=== PATIENT | male | born 1990 | race Caucasian/White ===

== ENCOUNTER 2017-02-16 13:42 | Emergency (ER) | payer OTHER ==
[~2017-02-16] VITALS: Ht 180.3 cm; Wt 60.3 kg
[~2017-02-16 13:42] MED LIST: ONDA4TAB8 PO; SUCR1TAB PO
[2017-02-16] MEDS ORDERED: ONDANSETRON 4 MG/2 ML VIAL IV ONE (14:00)
[2017-02-16] MEDS ORDERED: HYDROMORPHONE 1 MG/1 ML DISP.SYRIN IV ONE ×2 (14:00→15:00)
[2017-02-16] MEDS: IV NORMAL SALINE 1000 ML BAG IV ONE (14:22)
[2017-02-16 14:31] LABS: *BLOOD, URINE Trace-lysed (NEGATIVE); *COLOR,URINE DARK YELLOW (YELLOW); *KETONES,URINE NEGATIVE (NEGATIVE); *PROTEIN,URINE 2+ (NEGATIVE); *UROBILINOGEN,URINE 0.2 E.U./dl (NORMAL); LEUKOCYTE ESTERASE ,URINE NEGATIVE (NEGATIVE); NITRITE, URINE NEGATIVE (NEGATIVE); PH,URINE 5.5 (5.0-8.0); UGLUCOSE NEGATIVE (NEGATIVE)
[2017-02-16 14:32] LABS: BASOPHILS # (AUTO) 0.1 K/uL (0.0-8.0); BASOPHILS % (AUTO) 0.7 % (0.0-2.0); EOSINOPHILS % (AUTO) 0.3 % (0.0-7.0); HEMATOCRIT 51.1 % (40-50); HEMOGLOBIN 17.2 G/DL (14.0-18.0); LYMPHOCYTES # (AUTO) 0.6 K/UL (0.8-4.8); LYMPHOCYTES % (AUTO) 7.7 % (20.5-51.5); MEAN CORPUSCULAR HGB CONC 34 g/dL (32.0-37.0); MEAN CORPUSCULAR VOLUME 92.1 FL (82.0-92.0); MONOCYTES % (AUTO) 13.2 % (0.0-11.0); NEUTROPHILS % (AUTO) 78.1 % (38.5-71.5); PLATELET COUNT (AUTO) 271 K/UL (150-450); RED BLOOD CELL COUNT(AUTO) 5.55 MIL/UL (4.7-6.1); WHITE BLOOD COUNT (AUTO) 7.7 K/UL (4.0-11.2)
[2017-02-16] MEDS ORDERED: ONDANSETRON 4 MG/2 ML VIAL ONE (14:32)
[2017-02-16] MEDS ORDERED: HYDROMORPHONE 2 MG/1 ML DISP.SYRIN ONE (14:32)
[2017-02-16 14:37] LABS: POTASSIUM 3.4 mmol/L (3.5-5.1)
[2017-02-16 14:38] LABS: CREATININE 1.4 mg/dL (0.6-1.3)
[2017-02-16 14:43] LABS: BILIRUBIN,DIRECT 0.1 mg/dL (0.0-0.2); BILIRUBIN,TOTAL 0.9 mg/dL (0.2-1.0); TOTAL PROTEIN, SERUM 8.8 g/dL (6.4-8.2)
[2017-02-16 14:54] LABS: *BILIRUBIN,URIN TRACE (NEGATIVE); *CLARITY,URINE SLIGHTLY HAZY (CLEAR)
[2017-02-16 14:56] LABS: MUCUS,URINE MANY /LPF (0-FEW); URINE AMORPHOUS URATE FEW /HPF
[2017-02-16] MEDS ORDERED: ONDANSETRON IV *ER 4 MG/2 ML VIAL IV ONE (15:00)
[2017-02-16] MEDS ORDERED: HYDROMORPHONE 1 MG/1 ML DISP.SYRIN ONE (15:13)
[2017-02-16 15:27] VITALS: BP 122/65
--- NOTE | 2017-02-16 15:36 | NUR ---
IV removed. Catheter intact and site benign. Pressure and 4x4 gauze applied to site. No bleeding noted.
--- NOTE | 2017-02-16 15:37 | NUR ---
Patient discharged to home in stable conditon. Written and verbal after care instructions given. Patient verbalizes understanding of instructions.
[2017-02-17] MEDS ORDERED: METO-295 PO (14:34)
== END 2017-02-16 15:36 | disposition home or self-care (01) ==
LOC: ER 13:42
DX: M54.9 Dorsalgia, unspecified (principal); R11.10 Vomiting, unspecified; F31.9 Bipolar disorder, unspecified; R10.9 Unspecified abdominal pain; F41.9 Anxiety disorder, unspecified; F10.20 Alcohol dependence, uncomplicated; F17.200 Nicotine dependence, unspecified, uncomplicated
CPT/HCPCS: 36415; 83690; 85025; A4663; J1170; J2405; J7030

== ENCOUNTER 2017-02-17 14:15 | Emergency (ER) | payer OTHER ==
[~2017-02-17] VITALS: Ht 180.3 cm; Wt 59.4 kg
[2017-02-17] MEDS ORDERED: METO-295 PO (14:34)
--- NOTE | 2017-02-17 14:40 | NUR ---
dr tripp at the bedside for eval and exam.
[2017-02-17] MEDS ORDERED: HYDROMORPHONE 1 MG/1 ML DISP.SYRIN IM ONE (15:00)
[2017-02-17] MEDS ORDERED: PROMETHAZINE HCL 25 MG/1 ML VIAL IM ONE (15:00)
[2017-02-17 15:06] VITALS: BP 109/77
[2017-02-17] MEDS ORDERED: PROMETHAZINE HCL 25 MG/1 ML VIAL ONE (15:10)
[2017-02-17] MEDS ORDERED: HYDROMORPHONE 2 MG/1 ML DISP.SYRIN ONE (15:10)
== END 2017-02-17 15:10 | disposition home or self-care (01) ==
LOC: ER 14:15
DX: M54.9 Dorsalgia, unspecified (principal); F41.9 Anxiety disorder, unspecified; F31.9 Bipolar disorder, unspecified; F10.20 Alcohol dependence, uncomplicated; F17.200 Nicotine dependence, unspecified, uncomplicated
CPT/HCPCS: 96372 ×2; 99284; A4663; J1170; J2550

== ENCOUNTER 2017-09-30 07:18 | Emergency (ER) | payer OTHER ==
[~2017-09-30] VITALS: Ht 172.7 cm; Wt 56.7 kg
[~2017-09-30 07:18] MED LIST changes: +METO-295 PO
[2017-09-30] MEDS ORDERED: MORPHINE SULFATE 2 MG/1 ML DISP.SYRIN IV ONE (07:45)
[2017-09-30] MEDS ORDERED: IV NORMAL SALINE 1000 ML BAG IV ONE ×2 (07:45→11:00)
[2017-09-30] MEDS ORDERED: MORPHINE SULFATE 4 MG/1 ML DISP.SYRIN ONE ×2 (08:22→09:51)
[2017-09-30] MEDS ORDERED: ONDANSETRON 4 MG/2 ML VIAL ONE ×2 (08:22→11:06)
[2017-09-30] MEDS: ONDANSETRON 4 MG/2 ML VIAL IV ONE ×2 (09:00→09:13)
--- NOTE | 2017-09-30 09:05 | NUR ---
PT AMBULATED TO ROOM W/ STEADY GAIT. PT WAS SEEN BY . PT WAS GIVEN COMFORT MEDS. LABS HAVE BEEN DRAWN. PT IS HEAED TO CT. PT WILL BE REASSESSED UPON RETURN FROM CT.
[2017-09-30 09:14] LABS: BASOPHILS # (AUTO) 0.1 K/uL (0.0-8.0); BASOPHILS % (AUTO) 0.8 % (0.0-2.0); EOSINOPHILS % (AUTO) 0.1 % (0.0-7.0); HEMATOCRIT 43.3 % (36.7-47.1); HEMOGLOBIN 15.2 g/dL (12.5-16.3); LYMPHOCYTES # (AUTO) 1.7 K/uL (20.0-40.0); LYMPHOCYTES % (AUTO) 20.2 % (20.5-51.5); MEAN CORPUSCULAR HEMOGLOBIN 32.3 uug (23.8-33.4); MEAN CORPUSCULAR HGB CONC 35 g/dL (32.5-36.3); MONOCYTES # (AUTO) 0.8 K/uL (2.0-10.0); MONOCYTES % (AUTO) 9.2 % (0.0-11.0); NEUTROPHILS # (AUTO) 5.8 K/uL (1.8-8.9); NEUTROPHILS % (AUTO) 69.7 % (38.5-71.5); PLATELET COUNT (AUTO) 335 K/uL (152-348); RED BLOOD CELL COUNT(AUTO) 4.71 MIL/uL (4.06-5.63); WHITE BLOOD COUNT (AUTO) 8.3 K/uL (3.6-10.2)
[2017-09-30 09:25] LABS: CREATININE 1.4 mg/dL (0.6-1.3); POTASSIUM 2.9 mmol/L (3.5-5.1)
[2017-09-30 09:30] LABS: BILIRUBIN,DIRECT 0.2 mg/dL (0.0-0.2); TOTAL PROTEIN, SERUM 7.9 g/dL (6.4-8.2)
[2017-09-30] MEDS ORDERED: MORPHINE SULFATE 4 MG/1 ML DISP.SYRIN IV ONE (09:30)
[2017-09-30] MEDS ORDERED: POTASSIUM CHLORIDE 20 MEQ TAB.PRT.SR PO ONE (09:45)
[2017-09-30] MEDS ORDERED: POTASSIUM CHLORIDE 20 MEQ TAB.PRT.SR ONE (10:22)
[2017-09-30] MEDS ORDERED: IV 0.9% SODIUM CHLORID+ 20 KCL 1,000 ML IV ONE (10:22)
[2017-09-30] MEDS ORDERED: ONDANSETRON IV *ER 4 MG/2 ML VIAL IV ONE (10:30)
--- NOTE | 2017-09-30 10:34 | NUR ---
MD NOTIFIED OF PT'S CONTINUED PAIN. AWAITING FURTHER ORDERS. PT IN BED. VS STABLE.
[2017-09-30] MEDS ORDERED: KETOROLAC TROMETHAMINE 30 MG INJ IVP ONE (11:00)
[2017-09-30] MEDS ORDERED: LORAZEPAM 2 MG/1 ML VIAL IV ONE (11:00)
[2017-09-30] MEDS ORDERED: KETOROLAC TROMETHAMINE 30 MG INJ ONE (11:35)
[2017-09-30] MEDS ORDERED: LORAZEPAM 2 MG/1 ML VIAL ONE (11:35)
[2017-09-30] MEDS: POTASSIUM CHLORIDE 50 ML IV SCH ×2 (11:50→12:35)
--- NOTE | 2017-09-30 13:55 | NUR ---
Per MD, patient stable for discharged to home. Pt ambulated unassisted with steady gait. Pt was not seen vomiting and denied nausea. Written and verbal after care instructions given. Patient verbalizes understanding of instructions.
[2017-09-30 14:06] VITALS: BP 122/76
== END 2017-09-30 13:55 | disposition home or self-care (01) ==
LOC: ER 07:18
DX: K86.1 Other chronic pancreatitis (principal); K85.90 Acute pancreatitis without necrosis or infection, unspecified; E86.0 Dehydration; E87.6 Hypokalemia; F12.90 Cannabis use, unspecified, uncomplicated; F17.200 Nicotine dependence, unspecified, uncomplicated
CPT/HCPCS: 36415; 74176; 80048; 80076; 83690; 85025; 96361; 96365; 96366; 96375; 96376; 99285; A4663; J1885; J2060; J2270 ×2; J2405 ×2; J3480; J7030 ×2

== ENCOUNTER 2017-10-01 10:45 | Emergency (ER) | payer OTHER ==
[~2017-10-01] VITALS: Ht 172.7 cm; Wt 59.0 kg
[2017-10-01] MEDS ORDERED: HALOPERIDOL LACTATE 5 MG/1 ML VIAL IM ONE (11:15)
[2017-10-01] MEDS ORDERED: IV NORMAL SALINE 1000 ML BAG IV ONE (11:15)
[2017-10-01] MEDS ORDERED: HALOPERIDOL LACTATE 5 MG/1 ML VIAL IV ONE (11:15)
[2017-10-01 11:33] LABS: *BLOOD, URINE 2+ (NEGATIVE); *CLARITY,URINE CLEAR (CLEAR); *COLOR,URINE YELLOW (YELLOW); *KETONES,URINE 2+ (NEGATIVE); *PROTEIN,URINE 1+ (NEGATIVE); *UROBILINOGEN,URINE 0.2 E.U./dl (NORMAL); LEUKOCYTE ESTERASE ,URINE NEGATIVE (NEGATIVE); NITRITE, URINE NEGATIVE (NEGATIVE); UGLUCOSE NEGATIVE (NEGATIVE)
[2017-10-01 11:36] LABS: *BILIRUBIN,URIN 1+ (NEGATIVE)
[2017-10-01 11:40] LABS: BACTERIA,URINE FEW /HPF (NONE SEEN); RBC,URINE 0-3 /HPF (0-3); SQUAMOUS EPITHELIAL CELL,UR FEW /HPF (NONE SEEN); WBC,URINE 0-3 /HPF (0-3)
[2017-10-01] MEDS ORDERED: HALOPERIDOL LACTATE 5 MG/1 ML VIAL ONE (11:43)
[2017-10-01 11:47] LABS: *AMPHETAMINE, URINE NEGATIVE (NEGATIVE); *BARBITURATE, URINE NEGATIVE (NEGATIVE); *CANNABINOID, URINE POSITIVE (NEGATIVE); *COCCAINE, URINE NEGATIVE (NEGATIVE); *OPIATE, URINE POSITIVE (NEGATIVE); *PHENCYCLIDINE SCREEN,URINE NEGATIVE (NEGATIVE)
--- NOTE | 2017-10-01 12:29 | NUR ---
lab wwas not able to obtain blood, i attempted 5 times to start a saline lock and was not able, dr andrade was notified. pt then was administered haldol im. pt then refused to wait and eloped. was notified, pt ambulated w/o diff/took all belongings.
[2017-10-01 12:52] LABS: BILIRUBIN,DIRECT 0.3 mg/dL (0.0-0.2); BILIRUBIN,TOTAL 1.3 mg/dL (0.2-1.0); CREATININE 1.3 mg/dL (0.6-1.3); POTASSIUM 3.2 mmol/L (3.5-5.1); TOTAL PROTEIN, SERUM 7.9 g/dL (6.4-8.2)
== END 2017-10-01 12:28 | disposition left against medical advice (07) ==
LOC: ER 10:47
DX: F12.10 Cannabis abuse, uncomplicated (principal); G43.A0 Cyclical vomiting, in migraine, not intractable; G89.29 Other chronic pain; K21.9 Gastro-esophageal reflux disease without esophagitis; F17.200 Nicotine dependence, unspecified, uncomplicated
CPT/HCPCS: 36415; 80307; 83690; A4663; J1630; J7030

== ENCOUNTER 2017-10-02 11:18 | Inpatient (IN) | payer OTHER ==
--- NOTE | 2017-10-01 22:30 | NUR ---
PATIENT ALERT AWAKE, PATIENT INSIST TO CALL MD FOR IV PAIN MEDICATIONS, BUT EXPLAINED TO PATIENT THAT MD WAS NOTIFIED ALREADY AND NO NEW ORDER. OFFER TO HAVE ZOFRAN 4MG IV FIRST SO HE CAN TAKE THE PO MEDS, IT TOOK LOTS OF ENCOURAGEMENT TO FOLLOW THE SUGGESTIONS. PATIENT REFUSED TO REFUSED TO FOLLOW NPO ORDERS, WANTS TO EAT AND DRINK, REQUEST MULTIPLE TIME OF JUICES, SANDWICHES.
[~2017-10-02] VITALS: Ht 180.3 cm; Wt 52.2 kg
[2017-10-02] MEDS ORDERED: IV NORMAL SALINE 1000 ML BAG IV ONE (12:00)
[2017-10-02] MEDS ORDERED: KETAMINE HCL 500 MG/10 ML INJ IV ONE ×2 (12:00→14:30)
[2017-10-02] MEDS ORDERED: ONDANSETRON 4 MG/2 ML VIAL IV ONE (12:00)
[2017-10-02 12:54] LABS: BASOPHILS # (AUTO) 0.1 K/uL (0.0-8.0); BASOPHILS % (AUTO) 0.7 % (0.0-2.0); EOSINOPHILS % (AUTO) 0.1 % (0.0-7.0); HEMATOCRIT 43.7 % (36.7-47.1); HEMOGLOBIN 15.4 g/dL (12.5-16.3); LYMPHOCYTES # (AUTO) 1.9 K/uL (20.0-40.0); LYMPHOCYTES % (AUTO) 22.1 % (20.5-51.5); MEAN CORPUSCULAR HEMOGLOBIN 32.3 uug (23.8-33.4); MEAN CORPUSCULAR HGB CONC 35 g/dL (32.5-36.3); MEAN CORPUSCULAR VOLUME 91.8 fL (73.0-96.2); MONOCYTES # (AUTO) 0.6 K/uL (2.0-10.0); MONOCYTES % (AUTO) 7.7 % (0.0-11.0); NEUTROPHILS # (AUTO) 5.8 K/uL (1.8-8.9); NEUTROPHILS % (AUTO) 69.4 % (38.5-71.5); PLATELET COUNT (AUTO) 301 K/uL (152-348); RED BLOOD CELL COUNT(AUTO) 4.76 MIL/uL (4.06-5.63); WHITE BLOOD COUNT (AUTO) 8.4 K/uL (3.6-10.2)
[2017-10-02 13:11] LABS: BILIRUBIN,DIRECT 0.3 mg/dL (0.0-0.2); BILIRUBIN,TOTAL 1.4 mg/dL (0.2-1.0); CREATININE 1.2 mg/dL (0.6-1.3); POTASSIUM 3.2 mmol/L (3.5-5.1); TOTAL PROTEIN, SERUM 7.8 g/dL (6.4-8.2)
--- NOTE | 2017-10-02 13:24 | NUR ---
PT IS IN ROOM 32A. DR AGUILAR EVALUATED THE PT.
[2017-10-02] MEDS ORDERED: ONDANSETRON 4 MG/2 ML VIAL ONE ×2 (13:27→22:02)
[2017-10-02] MEDS ORDERED: KETAMINE HCL 500 MG/10 ML INJ ONE ×2 (13:28→15:03)
[2017-10-02] MEDS ORDERED: METOCLOPRAMIDE HCL 10 MG/2 ML VIAL IV ONE (14:30)
[2017-10-02] MEDS ORDERED: METOCLOPRAMIDE HCL 10 MG/2 ML VIAL ONE ×2 (15:02→22:45)
[2017-10-02] MEDS ORDERED: LORAZEPAM 2 MG/1 ML VIAL IV ONE (15:30)
[2017-10-02] MEDS ORDERED: LORAZEPAM 2 MG/1 ML VIAL ONE (16:02)
--- NOTE | 2017-10-02 18:41 | NUR ---
REPORT WAS GIVEN TO JESSICA M/Alfie ROA. PT WAS TRANSFERED TO ROOM #221.
--- NOTE | 2017-10-02 18:48 | NUR ---
FULL TELEPHONE SBAR REPORT RECEIVED ER JESSICA HIGGINS. RECEIVED PATIENT FROM ER VIA WHEELCHAIR, PATIENT ALERT, ORIENTED X4, VERBALIZED UNDERSTANDING PLAN OF CARE. NO C/O OF PAIN, NO ACUTE DISTRESS NOTED UPON ADMISSION
[2017-10-02] MEDS ORDERED: POTASSIUM CHLORIDE 20 MEQ TAB.PRT.SR PO ONE (19:15)
[2017-10-02] MEDS ORDERED: MAGNESIUM HYDROXIDE 30 ML LIQUID UDC PO PRN (19:15)
[2017-10-02] MEDS ORDERED: HYDROCODONE/APAP 5-325MG TABLET PO PRN (19:15)
[2017-10-02] MEDS ORDERED: ACETAMINOPHEN 325 MG TABLET PO PRN (19:15)
[2017-10-02] MEDS ORDERED: METOCLOPRAMIDE HCL 10 MG/2 ML VIAL IV PRN (19:15)
[2017-10-02] MEDS ORDERED: ENOXAPARIN SODIUM 40 MG/0.4 ML DISP.SYRIN SQ SCH (19:15)
[2017-10-02] MEDS ORDERED: ONDANSETRON 4 MG/2 ML VIAL IV PRN (19:15)
[2017-10-02] MEDS ORDERED: Z GUARD REMEDY PASTE 57 GM TUBE TOP PRN (19:15)
[2017-10-02] MEDS ORDERED: ZOLPIDEM 5 MG TABLET PO PRN (19:15)
[2017-10-02] MEDS ORDERED: IV D5/ 0.9% NACL 1,000 ML IV PRN (19:15)
--- NOTE | 2017-10-02 20:45 | NUR ---
CALLED DR. LINK FOR PAIN MEDS, BUT SAID TO CALL DAMIEN VERDUZCO PUBLIC HEALTH ADVISOR FOR ORDER. NOTIFY DAMIEN VERDUZCO PUBLIC HEALTH ADVISOR FOR PAIN IV, PUBLIC HEALTH ADVISOR HAS NO NEW ORDER AT THIS TIME. PATIENT REFUSED PO PAIN MEDS, COMPLAIN OF VOMITING, OFFERED ZOFRAN FOR NAUSEA SO HE CAN TAKE THE PO PAIN MEDS, BUT REFUSED, PATIENT START SCREAMING, CALLED SECURITY
--- NOTE | 2017-10-02 20:50 | NUR ---
PATIENT GIVEN PO PAIN MEDS TOLERATE WELL, NO EVIDENCE OF VOMITING, PATIENT CONTINUE TO CLAIM THAT HE VOMITING BUT NO EMESIS NOTED ON VOMIT BAG.
[2017-10-02 20:51] VITALS: BP 107/71
[2017-10-02] MEDS ORDERED: HYDROCODONE/APAP 5-325MG TABLET ONE (22:00)
[2017-10-02] MEDS ORDERED: ENOXAPARIN SODIUM 40 MG/0.4 ML DISP.SYRIN SQ ONE (22:01)
[2017-10-02] MEDS ORDERED: POTASSIUM CHLORIDE 20 MEQ TAB.PRT.SR ONE (22:03)
--- NOTE | 2017-10-03 01:17 | NUR ---
PATIENT REQUESTING COFFEE, AND SNACK, AND TOLERATE JUICES AND CRACKERS PROVIDED. PATIENT HAS NO EVIDENCE THAT HE'S VOMITING. CONT TO REFUSED NPO ORDERS.
[2017-10-03] MEDS ORDERED: ZOLPIDEM 5 MG TABLET ONE (01:29)
--- NOTE | 2017-10-03 02:30 | NUR ---
PATIENT WENT AMA, TOOK ALL BELONGINGS. EXPLAINED THE RISK AND BENEFIT.
--- NOTE | 2017-10-03 03:28 | NUR ---
NOTIFY DR. ELENA THAT PATIENT WENT AMA.
== END 2017-10-03 02:31 | disposition left against medical advice (07) | DRG 54 ==
LOC: ER 11:18 → TELE 18:16 → MED 18:27
DX: G43.A0 Cyclical vomiting, in migraine, not intractable (principal); E87.6 Hypokalemia; F31.9 Bipolar disorder, unspecified; F41.9 Anxiety disorder, unspecified; T40.7X5A Adverse effect of cannabis (derivatives), initial encounter; Y92.89 Other specified places as the place of occurrence of the external cause; Z79.899 Other long term (current) drug therapy; F17.210 Nicotine dependence, cigarettes, uncomplicated; Z76.5 Malingerer [conscious simulation]
CPT/HCPCS: 36415; 70030-TC; 83690; 85025; A4663; J1650; J2060; J2405; J2765; J3490; J7030

== ENCOUNTER 2017-10-10 13:49 | Emergency (ER) | payer OTHER ==
[~2017-10-10] VITALS: Ht 180.3 cm; Wt 53.1 kg
[2017-10-10] MEDS ORDERED: IV NORMAL SALINE 1000 ML BAG IV ONE (14:15)
[2017-10-10] MEDS ORDERED: ONDANSETRON 4 MG/2 ML VIAL IV ONE (14:15)
[2017-10-10] MEDS ORDERED: HYDROMORPHONE 1 MG/1 ML DISP.SYRIN IV ONE ×3 (14:15→16:00)
[2017-10-10] MEDS ORDERED: ONDANSETRON 4 MG/2 ML VIAL ONE ×3 (14:22→16:19)
[2017-10-10] MEDS ORDERED: HYDROMORPHONE 1 MG/1 ML DISP.SYRIN ONE ×2 (14:22→15:20)
[2017-10-10 14:27] LABS: CREATININE 1.7 mg/dL (0.6-1.3); POTASSIUM 3.2 mmol/L (3.5-5.1)
[2017-10-10 14:28] LABS: BASOPHILS # (AUTO) 0.1 K/uL (0.0-8.0); EOSINOPHILS # (AUTO) 0.1 K/uL (0.0-0.7); EOSINOPHILS % (AUTO) 0.6 % (0.0-7.0); HEMOGLOBIN 16.6 g/dL (12.5-16.3); LYMPHOCYTES # (AUTO) 2.9 K/uL (20.0-40.0); LYMPHOCYTES % (AUTO) 29.4 % (20.5-51.5); MEAN CORPUSCULAR HEMOGLOBIN 31.9 uug (23.8-33.4); MEAN CORPUSCULAR HGB CONC 35 g/dL (32.5-36.3); MEAN CORPUSCULAR VOLUME 90.4 fL (73.0-96.2); MONOCYTES # (AUTO) 0.8 K/uL (2.0-10.0); MONOCYTES % (AUTO) 8.3 % (0.0-11.0); NEUTROPHILS # (AUTO) 5.9 K/uL (1.8-8.9); NEUTROPHILS % (AUTO) 60.7 % (38.5-71.5); PLATELET COUNT (AUTO) 289 K/uL (152-348); WHITE BLOOD COUNT (AUTO) 9.7 K/uL (3.6-10.2)
[2017-10-10 14:33] LABS: BILIRUBIN,DIRECT 0.4 mg/dL (0.0-0.2); BILIRUBIN,TOTAL 1.5 mg/dL (0.2-1.0); TOTAL PROTEIN, SERUM 8.6 g/dL (6.4-8.2)
[2017-10-10] MEDS ORDERED: ONDANSETRON IV *ER 4 MG/2 ML VIAL IV ONE ×2 (14:45→16:00)
[2017-10-10] MEDS ORDERED: IV LACTATED RINGERS SOLUTION 1,000 ML IV ONE (15:08)
--- NOTE | 2017-10-10 15:32 | NUR ---
Patient ambulated to bathroom with slow steady gait to void but patient forgot to collect his urine, pending transfer to 2nd floor med-surgical floor
--- NOTE | 2017-10-10 15:46 | NUR ---
Patient is resting comfortably on gurney while using his personal electronic device, not in acute distress. He is calm & breathing easily. Patient's girlfriend/spouse? is at bedside. Patient is now admitted to medical surgical floor room 227, under care of Dr. Rojo. Patient was informed by Dr Campbell that he will not be given IV Dilaudid on the floor. Patient wanted IV lactated ringer's solution infused before going to 2nd floor.
--- NOTE | 2017-10-10 16:18 | NUR ---
Patient refused to be admitted. Patient discharged to home in stable conditon by MD. Written and verbal after care instructions given to patient and patient's spouse/girlfriend. Patient and spouse verbalized understanding of instructions. Patient left ER with slow steady gait.
[2017-10-10] MEDS ORDERED: HYDROMORPHONE 2 MG/1 ML DISP.SYRIN ONE (16:19)
== END 2017-10-10 16:20 | disposition home or self-care (01) ==
LOC: ER 13:49
DX: G43.A0 Cyclical vomiting, in migraine, not intractable (principal); K85.90 Acute pancreatitis without necrosis or infection, unspecified; F17.200 Nicotine dependence, unspecified, uncomplicated
CPT/HCPCS: 80048; 80076; 81001; 83690; 85025; 87400; 96361; 96374; 96375; 96376; 99285; A4663; J1170 ×3; J2405 ×3; J7030 ×2; J7120

== ENCOUNTER 2017-10-12 23:55 | Inpatient (IN) | payer OTHER ==
[~2017-10-12] VITALS: Ht 180.3 cm; Wt 52.2 kg
[2017-10-13] MEDS ORDERED: ONDANSETRON 4 MG/2 ML VIAL IV ONE (00:15)
[2017-10-13] MEDS ORDERED: IV NORMAL SALINE 1000 ML BAG IV ONE (00:15)
[2017-10-13] MEDS ORDERED: HYDROMORPHONE 1 MG/1 ML DISP.SYRIN IV ONE ×3 (00:15→03:00)
[2017-10-13] MEDS ORDERED: ONDANSETRON 4 MG/2 ML VIAL ONE ×3 (01:12→03:18)
[2017-10-13] MEDS ORDERED: HYDROMORPHONE 2 MG/1 ML DISP.SYRIN ONE ×2 (01:12→01:42)
[2017-10-13 01:19] LABS: BASOPHILS # (AUTO) 0.1 K/uL (0.0-8.0); BASOPHILS % (AUTO) 1.2 % (0.0-2.0); EOSINOPHILS # (AUTO) 0.1 K/uL (0.0-0.7); EOSINOPHILS % (AUTO) 1.3 % (0.0-7.0); HEMATOCRIT 42.8 % (36.7-47.1); HEMOGLOBIN 15.2 g/dL (12.5-16.3); LYMPHOCYTES # (AUTO) 2.3 K/uL (20.0-40.0); LYMPHOCYTES % (AUTO) 32.3 % (20.5-51.5); MEAN CORPUSCULAR HEMOGLOBIN 32.4 uug (23.8-33.4); MEAN CORPUSCULAR HGB CONC 36 g/dL (32.5-36.3); MONOCYTES # (AUTO) 0.5 K/uL (2.0-10.0); MONOCYTES % (AUTO) 6.7 % (0.0-11.0); NEUTROPHILS # (AUTO) 4.2 K/uL (1.8-8.9); NEUTROPHILS % (AUTO) 58.5 % (38.5-71.5); PLATELET COUNT (AUTO) 220 K/uL (152-348); WHITE BLOOD COUNT (AUTO) 7.2 K/uL (3.6-10.2)
[2017-10-13] MEDS ORDERED: ONDANSETRON IV *ER 4 MG/2 ML VIAL IV ONE ×2 (01:30→03:00)
[2017-10-13 01:36] LABS: BILIRUBIN,DIRECT 0.3 mg/dL (0.0-0.2); BILIRUBIN,TOTAL 1.2 mg/dL (0.2-1.0); CREATININE 1.2 mg/dL (0.6-1.3); POTASSIUM 3.5 mmol/L (3.5-5.1); TOTAL PROTEIN, SERUM 8.4 g/dL (6.4-8.2)
[2017-10-13] MEDS ORDERED: HYDROMORPHONE 4 MG/1 ML DISP.SYRIN ONE (03:18)
[2017-10-13 04:00] VITALS: BP 102/60
[2017-10-13] MEDS ORDERED: LORAZEPAM 2 MG/1 ML VIAL IV PRN (04:45)
[2017-10-13] MEDS ORDERED: ACETAMINOPHEN 325 MG TABLET PO PRN (04:45)
[2017-10-13] MEDS: IV NS 1000 ML 1,000 ML IV PRN ×2 (06:03→16:45)
[2017-10-13 07:03] LABS: BILIRUBIN,TOTAL 0.9 mg/dL (0.2-1.0); CREATININE 1.1 mg/dL (0.6-1.3); MAGNESIUM 1.9 mg/dL (1.8-2.4); PHOSPHOROUS 3.9 mg/dL (2.5-4.9); POTASSIUM 3.4 mmol/L (3.5-5.1); TOTAL PROTEIN, SERUM 7.2 g/dL (6.4-8.2)
[2017-10-13 07:31] LABS: BASOPHILS # (AUTO) 0.1 K/uL (0.0-8.0); BASOPHILS % (AUTO) 1.2 % (0.0-2.0); EOSINOPHILS # (AUTO) 0.1 K/uL (0.0-0.7); EOSINOPHILS % (AUTO) 1.1 % (0.0-7.0); HEMATOCRIT 38.4 % (36.7-47.1); HEMOGLOBIN 13.7 g/dL (12.5-16.3); LYMPHOCYTES # (AUTO) 2.9 K/uL (20.0-40.0); LYMPHOCYTES % (AUTO) 43.7 % (20.5-51.5); MEAN CORPUSCULAR HEMOGLOBIN 32.7 uug (23.8-33.4); MEAN CORPUSCULAR HGB CONC 36 g/dL (32.5-36.3); MEAN CORPUSCULAR VOLUME 91.3 fL (73.0-96.2); MONOCYTES # (AUTO) 0.5 K/uL (2.0-10.0); MONOCYTES % (AUTO) 6.9 % (0.0-11.0); NEUTROPHILS # (AUTO) 3.1 K/uL (1.8-8.9); NEUTROPHILS % (AUTO) 47.1 % (38.5-71.5); PLATELET COUNT (AUTO) 194 K/uL (152-348); WHITE BLOOD COUNT (AUTO) 6.6 K/uL (3.6-10.2)
[2017-10-13] MEDS: ONDANSETRON 4 MG/2 ML VIAL IV PRN ×2 (08:30→17:05)
[2017-10-13 10:24] LABS: *BLOOD, URINE Trace-intact (NEGATIVE); *CLARITY,URINE CLEAR (CLEAR); *COLOR,URINE YELLOW (YELLOW); *KETONES,URINE TRACE (NEGATIVE); *PROTEIN,URINE 2+ (NEGATIVE); LEUKOCYTE ESTERASE ,URINE NEGATIVE (NEGATIVE); NITRITE, URINE NEGATIVE (NEGATIVE); UGLUCOSE NEGATIVE (NEGATIVE)
[2017-10-13 10:48] LABS: *BILIRUBIN,URIN 1+ (NEGATIVE)
[2017-10-13 10:57] VITALS: BP 121/82
[2017-10-13 10:57] LABS: BACTERIA,URINE FEW /HPF (NONE SEEN); MUCUS,URINE MANY /LPF (0-FEW); SQUAMOUS EPITHELIAL CELL,UR FEW /HPF (NONE SEEN)
[2017-10-13 11:33] LABS: *AMPHETAMINE, URINE NEGATIVE (NEGATIVE); *BARBITURATE, URINE NEGATIVE (NEGATIVE); *CANNABINOID, URINE POSITIVE (NEGATIVE); *COCCAINE, URINE NEGATIVE (NEGATIVE); *OPIATE, URINE POSITIVE (NEGATIVE); *PHENCYCLIDINE SCREEN,URINE NEGATIVE (NEGATIVE)
[2017-10-13] MEDS ORDERED: NICOTINE 14 MG/24HR PATCH TD SCH (12:00)
[2017-10-13] MEDS ORDERED: POTASSIUM CHLORIDE 20 MEQ TAB.PRT.SR PO ONE (14:45)
[2017-10-13 15:11] VITALS: BP 108/65
[2017-10-13] MEDS ORDERED: HYDROCODONE/APAP 5-325MG TABLET PO PRN (15:30)
[2017-10-13] MEDS ORDERED: IV 1/2NS 1000 ML 1,000 ML IV PRN (17:00)
[2017-10-13 19:00] VITALS: BP 105/67
[2017-10-13] MEDS ORDERED: AMITRIPTYLINE HCL 50 MG TABLET PO SCH (21:00)
== END 2017-10-14 09:32 | disposition left against medical advice (07) | DRG 254 ==
LOC: ER 10-13 00:01 → MED 10-13 03:15 → MEDSURG1 10-14 02:20
PROVIDERS: ADMIT Nurse Practitioner Acute Care; ATTEND Nurse Practitioner Acute Care
DX: K31.89 Other diseases of stomach and duodenum (principal); N17.0 Acute kidney failure with tubular necrosis; F12.988 Cannabis use, unspecified with other cannabis-induced disorder; E87.6 Hypokalemia; K31.9 Disease of stomach and duodenum, unspecified; F13.90 Sedative, hypnotic, or anxiolytic use, unspecified, uncomplicated; F11.90 Opioid use, unspecified, uncomplicated; F31.9 Bipolar disorder, unspecified; M48.00 Spinal stenosis, site unspecified; F41.9 Anxiety disorder, unspecified; R11.2 Nausea with vomiting, unspecified
CPT/HCPCS: 36415; 70030-TC; 71045; 80307; 83690; 83735; 84100; 85025; 87086; A4663; J1170; J2405; J3490; J7030

== ENCOUNTER 2017-10-18 12:06 | Emergency (ER) | payer OTHER ==
[~2017-10-18] VITALS: Ht 180.3 cm; Wt 51.4 kg
[2017-10-18] MEDS ORDERED: IV NORMAL SALINE 1000 ML BAG IV ONE ×2 (12:45→14:45)
[2017-10-18] MEDS ORDERED: KETAMINE HCL 500 MG/10 ML INJ IV ONE (12:45)
[2017-10-18] MEDS ORDERED: METOCLOPRAMIDE HCL 10 MG/2 ML VIAL IV ONE (12:45)
--- NOTE | 2017-10-18 13:09 | NUR ---
PT IN BED W/ VISITOR AT BEDSIDE. PT BACK FROM RADIOLOGY. CURRENTLY WAITING FOR MD TO ASSIST W/ IV MED ADMINISTRATION BY ESTABLISHING AN IV LINE IN NECK.
[2017-10-18 13:46] LABS: BILIRUBIN,DIRECT 0.4 mg/dL (0.0-0.2); BILIRUBIN,TOTAL 1.6 mg/dL (0.2-1.0); CREATININE 1.6 mg/dL (0.6-1.3); TOTAL PROTEIN, SERUM 8.8 g/dL (6.4-8.2)
[2017-10-18 13:51] LABS: POTASSIUM 2.7 mmol/L (3.5-5.1)
[2017-10-18] MEDS ORDERED: METOCLOPRAMIDE HCL 10 MG/2 ML VIAL ONE (13:54)
[2017-10-18] MEDS ORDERED: KETAMINE HCL 500 MG/10 ML INJ ONE (13:55)
[2017-10-18 13:59] LABS: BASOPHILS # (AUTO) 0.1 K/uL (0.0-8.0); BASOPHILS % (AUTO) 0.8 % (0.0-2.0); EOSINOPHILS % (AUTO) 0.1 % (0.0-7.0); HEMATOCRIT 46.6 % (36.7-47.1); HEMOGLOBIN 16.6 g/dL (12.5-16.3); LYMPHOCYTES # (AUTO) 2.2 K/uL (20.0-40.0); LYMPHOCYTES % (AUTO) 27.9 % (20.5-51.5); MEAN CORPUSCULAR HEMOGLOBIN 31.8 uug (23.8-33.4); MEAN CORPUSCULAR HGB CONC 36 g/dL (32.5-36.3); MEAN CORPUSCULAR VOLUME 89.2 fL (73.0-96.2); MONOCYTES # (AUTO) 0.7 K/uL (2.0-10.0); MONOCYTES % (AUTO) 8.5 % (0.0-11.0); NEUTROPHILS # (AUTO) 4.9 K/uL (1.8-8.9); NEUTROPHILS % (AUTO) 62.7 % (38.5-71.5); PLATELET COUNT (AUTO) 240 K/uL (152-348); RED BLOOD CELL COUNT(AUTO) 5.23 MIL/uL (4.06-5.63); WHITE BLOOD COUNT (AUTO) 7.9 K/uL (3.6-10.2)
--- NOTE | 2017-10-18 14:00 | NUR ---
PICC NOT NEEDED. MD AGUILAR ABLE TO START IV ON LT EJ
[2017-10-18] MEDS ORDERED: LORAZEPAM 2 MG/1 ML VIAL IV ONE ×2 (14:15→17:00)
[2017-10-18] MEDS ORDERED: LORAZEPAM 2 MG/1 ML VIAL ONE ×2 (14:21→17:20)
[2017-10-18] MEDS ORDERED: POTASSIUM CHLORIDE 20 MEQ TAB.PRT.SR PO ONE (14:45)
[2017-10-18] MEDS ORDERED: POTASSIUM CHLORIDE 20 MEQ TAB.PRT.SR ONE (15:00)
--- NOTE | 2017-10-18 17:30 | NUR ---
Patient discharged to home in stable conditon. Written and verbal after care instructions given. Patient verbalizes understanding of instructions.
[2017-10-18 18:03] VITALS: BP 122/86
== END 2017-10-18 17:30 | disposition home or self-care (01) ==
LOC: ER 12:09
DX: K31.89 Other diseases of stomach and duodenum (principal); R11.10 Vomiting, unspecified; F11.10 Opioid abuse, uncomplicated; F12.10 Cannabis abuse, uncomplicated; K85.90 Acute pancreatitis without necrosis or infection, unspecified; N17.9 Acute kidney failure, unspecified; F17.200 Nicotine dependence, unspecified, uncomplicated
CPT/HCPCS: 36415; 70030-TC; 71045; 83690; 85025; 85730; 93005; A4663; J2060; J2765; J3490; J7030

== ENCOUNTER 2018-01-05 11:56 | Emergency (ER) | payer OTHER ==
[~2018-01-05] VITALS: Ht 180.3 cm; Wt 70.3 kg
[2018-01-05] MEDS ORDERED: MORPHINE SULFATE 2 MG/1 ML DISP.SYRIN IV ONE (12:15)
[2018-01-05] MEDS ORDERED: IV NORMAL SALINE 1000 ML BAG IV ONE ×3 (12:15→14:30)
[2018-01-05] MEDS ORDERED: ONDANSETRON 4 MG/2 ML VIAL IV ONE (12:15)
[2018-01-05] MEDS ORDERED: MORPHINE SULFATE 4 MG/1 ML DISP.SYRIN ONE ×4 (12:16→14:21)
[2018-01-05] MEDS ORDERED: ONDANSETRON 4 MG/2 ML VIAL ONE ×4 (12:17→14:21)
[2018-01-05 12:34] LABS: BASOPHILS # (AUTO) 0.1 K/uL (0.0-8.0); BASOPHILS % (AUTO) 0.6 % (0.0-2.0); HEMATOCRIT 45.2 % (36.7-47.1); HEMOGLOBIN 15.9 g/dL (12.5-16.3); LYMPHOCYTES # (AUTO) 1.4 K/uL (20.0-40.0); LYMPHOCYTES % (AUTO) 11.9 % (20.5-51.5); MEAN CORPUSCULAR HEMOGLOBIN 32.9 uug (23.8-33.4); MEAN CORPUSCULAR HGB CONC 35 g/dL (32.5-36.3); MEAN CORPUSCULAR VOLUME 93.8 fL (73.0-96.2); MONOCYTES # (AUTO) 0.9 K/uL (2.0-10.0); MONOCYTES % (AUTO) 7.8 % (0.0-11.0); NEUTROPHILS # (AUTO) 9.2 K/uL (1.8-8.9); NEUTROPHILS % (AUTO) 79.7 % (38.5-71.5); PLATELET COUNT (AUTO) 278 K/uL (152-348); RED BLOOD CELL COUNT(AUTO) 4.82 MIL/uL (4.06-5.63); WHITE BLOOD COUNT (AUTO) 11.6 K/uL (3.6-10.2)
[2018-01-05] MEDS ORDERED: MORPHINE SULFATE 4 MG/1 ML DISP.SYRIN IV ONE ×3 (13:00→14:30)
[2018-01-05] MEDS ORDERED: ONDANSETRON IV *ER 4 MG/2 ML VIAL IV ONE ×3 (13:00→14:30)
[2018-01-05 13:13] LABS: BILIRUBIN,DIRECT 0.2 mg/dL (0.0-0.2); BILIRUBIN,TOTAL 1.3 mg/dL (0.2-1.0); CREATININE 1.3 mg/dL (0.6-1.3); POTASSIUM 3.8 mmol/L (3.5-5.1); TOTAL PROTEIN, SERUM 9.2 g/dL (6.4-8.2)
[2018-01-05] MEDS ORDERED: METOCLOPRAMIDE HCL 10 MG/2 ML VIAL ONE (14:00)
[2018-01-05] MEDS ORDERED: METOCLOPRAMIDE HCL 10 MG/2 ML VIAL IV ONE (14:00)
[2018-01-05 14:31] VITALS: BP 121/81
--- NOTE | 2018-01-05 14:31 | NUR ---
Patient discharged to home in stable conditon. Written and verbal after care instructions given. Patient verbalizes understanding of instructions.pt walks in steady gait. pt wants to go home and rest. pt ordered uber to get home.
== END 2018-01-05 14:32 | disposition home or self-care (01) ==
LOC: ER 11:56
DX: G43.A0 Cyclical vomiting, in migraine, not intractable (principal); G89.29 Other chronic pain; F17.210 Nicotine dependence, cigarettes, uncomplicated; F12.10 Cannabis abuse, uncomplicated; Z79.899 Other long term (current) drug therapy
CPT/HCPCS: 36415; 83690; 85025; A4663; J2270; J2405; J2765; J7030

== ENCOUNTER 2018-01-06 10:00 | Emergency (ER) | payer OTHER ==
[~2018-01-06] VITALS: Ht 180.3 cm; Wt 68.0 kg
[2018-01-06] MEDS ORDERED: ONDANSETRON 4 MG/2 ML VIAL IV ONE (10:30)
[2018-01-06] MEDS ORDERED: IV NORMAL SALINE 1000 ML BAG IV ONE (10:30)
[2018-01-06] MEDS ORDERED: METOCLOPRAMIDE HCL 10 MG/2 ML VIAL IV ONE (10:30)
[2018-01-06] MEDS ORDERED: MORPHINE SULFATE 2 MG/1 ML DISP.SYRIN IV ONE (10:30)
[2018-01-06] MEDS ORDERED: MORPHINE SULFATE 4 MG/1 ML DISP.SYRIN ONE ×3 (10:59→12:28)
[2018-01-06] MEDS ORDERED: METOCLOPRAMIDE HCL 10 MG/2 ML VIAL ONE (10:59)
[2018-01-06] MEDS ORDERED: ONDANSETRON 4 MG/2 ML VIAL ONE ×3 (10:59→12:28)
--- NOTE | 2018-01-06 11:02 | NUR ---
PT IS IN ROOM #2A. DR CHIANG EVALUATED THE PT.
[2018-01-06 11:06] LABS: CREATININE 1.2 mg/dL (0.6-1.3); POTASSIUM 3.7 mmol/L (3.5-5.1)
[2018-01-06 11:12] LABS: BILIRUBIN,DIRECT 0.3 mg/dL (0.0-0.2); BILIRUBIN,TOTAL 1.5 mg/dL (0.2-1.0); TOTAL PROTEIN, SERUM 9.5 g/dL (6.4-8.2)
[2018-01-06] MEDS ORDERED: MORPHINE SULFATE 4 MG/1 ML DISP.SYRIN IV ONE ×2 (11:30→12:30)
[2018-01-06] MEDS ORDERED: ONDANSETRON IV *ER 4 MG/2 ML VIAL IV ONE ×2 (11:30→12:30)
[2018-01-06 12:01] LABS: BASOPHILS % (AUTO) 0.2 % (0.0-2.0); HEMATOCRIT 44.7 % (36.7-47.1); HEMOGLOBIN 15.4 g/dL (12.5-16.3); LYMPHOCYTES % (AUTO) 7.6 % (20.5-51.5); MEAN CORPUSCULAR HEMOGLOBIN 32.3 uug (23.8-33.4); MEAN CORPUSCULAR HGB CONC 35 g/dL (32.5-36.3); MEAN CORPUSCULAR VOLUME 93.7 fL (73.0-96.2); MONOCYTES % (AUTO) 7.2 % (0.0-11.0); NEUTROPHILS # (AUTO) 11.7 K/uL (1.8-8.9); PLATELET COUNT (AUTO) 268 K/uL (152-348); RED BLOOD CELL COUNT(AUTO) 4.77 MIL/uL (4.06-5.63); WHITE BLOOD COUNT (AUTO) 13.7 K/uL (3.6-10.2)
--- NOTE | 2018-01-06 12:37 | NUR ---
PT WAS D/C TO HOME. D/C INSRUCTIONS GIVEN TO THE PT. PT DENIES PAIN. NO S/S OF ACUTE DISTRESS AT THIS TIME. GAIT IS STABLE. NO NAUSEA / VOMITING.
[2018-01-06 12:43] VITALS: BP 128/83
== END 2018-01-06 12:44 | disposition home or self-care (01) ==
LOC: ER 10:00
DX: G43.A0 Cyclical vomiting, in migraine, not intractable (principal); G89.29 Other chronic pain; F12.10 Cannabis abuse, uncomplicated; F17.210 Nicotine dependence, cigarettes, uncomplicated; Z79.899 Other long term (current) drug therapy
CPT/HCPCS: 36415; 83690; 85025; A4663; J2270; J2405; J2765; J7030

== ENCOUNTER 2018-01-07 08:20 | Emergency (ER) | payer OTHER ==
[~2018-01-07] VITALS: Ht 172.7 cm; Wt 62.6 kg
--- NOTE | 2018-01-07 09:13 | NUR ---
Patient discharged to home in stable conditon. Written and verbal after care instructions given. Patient verbalizes understanding of instructions.
== END 2018-01-07 09:14 | disposition home or self-care (01) ==
LOC: ER 08:20
DX: F12.188 Cannabis abuse with other cannabis-induced disorder (principal); R11.10 Vomiting, unspecified; G89.29 Other chronic pain; F17.210 Nicotine dependence, cigarettes, uncomplicated; Z79.899 Other long term (current) drug therapy
CPT/HCPCS: A4663

== ENCOUNTER 2018-01-09 08:18 | Emergency (ER) | payer OTHER ==
[~2018-01-09] VITALS: Ht 172.7 cm; Wt 61.7 kg
--- NOTE | 2018-01-09 08:45 | NUR ---
OB stool collected by Dr Kraft, sent to LAB.
[2018-01-09] MEDS ORDERED: PANTOPRAZOLE SODIUM 40 MG TABLET.DR PO ONE ×3 (08:55→09:00)
[2018-01-09 09:07] LABS: *OCCULT BLOOD STOOL NEGATIVE (NEGATIVE)
[2018-01-09] MEDS ORDERED: diphenhydrAMINE 25 MG CAP PO ONE ×2 (09:25→09:30)
[2018-01-09] MEDS ORDERED: METOCLOPRAMIDE HCL 10 MG/2 ML VIAL ONE (09:25)
[2018-01-09] MEDS ORDERED: ONDANSETRON ODT 4 MG TAB.RAPDIS ONE (09:25)
[2018-01-09 09:26] LABS: CREATININE 1.2 mg/dL (0.6-1.3); POTASSIUM 2.9 mmol/L (3.5-5.1)
[2018-01-09] MEDS ORDERED: ONDANSETRON ODT 4 MG TAB.RAPDIS SL ONE (09:30)
[2018-01-09] MEDS ORDERED: METOCLOPRAMIDE HCL 10 MG/2 ML VIAL IM ONE (09:30)
[2018-01-09 09:32] LABS: BILIRUBIN,TOTAL 2.5 mg/dL (0.2-1.0); TOTAL PROTEIN, SERUM 8.9 g/dL (6.4-8.2)
[2018-01-09] MEDS ORDERED: MAG HYDROX/AL HYDROX/SIMETH 30 ML LIQUID UDC ONE (09:32)
[2018-01-09 09:34] LABS: BASOPHILS # (AUTO) 0.1 K/uL (0.0-8.0); BASOPHILS % (AUTO) 0.8 % (0.0-2.0); EOSINOPHILS % (AUTO) 0.1 % (0.0-7.0); HEMATOCRIT 46.1 % (36.7-47.1); HEMOGLOBIN 16.2 g/dL (12.5-16.3); LYMPHOCYTES # (AUTO) 1.5 K/uL (20.0-40.0); LYMPHOCYTES % (AUTO) 17.4 % (20.5-51.5); MEAN CORPUSCULAR HEMOGLOBIN 32.7 uug (23.8-33.4); MEAN CORPUSCULAR HGB CONC 35 g/dL (32.5-36.3); MEAN CORPUSCULAR VOLUME 93.1 fL (73.0-96.2); MONOCYTES # (AUTO) 0.8 K/uL (2.0-10.0); MONOCYTES % (AUTO) 9.1 % (0.0-11.0); NEUTROPHILS # (AUTO) 6.1 K/uL (1.8-8.9); NEUTROPHILS % (AUTO) 72.6 % (38.5-71.5); PLATELET COUNT (AUTO) 251 K/uL (152-348); RED BLOOD CELL COUNT(AUTO) 4.95 MIL/uL (4.06-5.63); WHITE BLOOD COUNT (AUTO) 8.5 K/uL (3.6-10.2)
[2018-01-09] MEDS ORDERED: LIDOCAINE VISCUS 2% 15 ML UDC ONE (09:35)
--- NOTE | 2018-01-09 09:44 | NUR ---
Patient is resting comfortably in bed,NAD noted at this time.
[2018-01-09] MEDS ORDERED: MAG HYDROX/AL HYDROX/SIMETH 30 ML LIQUID UDC PO ONE (09:45)
[2018-01-09] MEDS ORDERED: LIDOCAINE VISCUS 2% 15 ML UDC MM ONE (09:45)
--- NOTE | 2018-01-09 09:53 | NUR ---
Pt able to tolorate PO intake.
[2018-01-09] MEDS ORDERED: POTASSIUM CHLORIDE 20 MEQ TAB.PRT.SR PO ONE (10:00)
[2018-01-09] MEDS ORDERED: POTASSIUM CHLORIDE 20 MEQ TAB.PRT.SR ONE (10:01)
[2018-01-09 10:02] VITALS: BP 120/88
--- NOTE | 2018-01-09 10:03 | NUR ---
Patient discharged to home in stable conditon. Written and verbal after care instructions given. Patient verbalizes understanding of instructions. Pt left ER w/ steady gait.
== END 2018-01-09 10:04 | disposition home or self-care (01) ==
LOC: ER 08:18
DX: G89.29 Other chronic pain (principal); R10.84 Generalized abdominal pain; E87.6 Hypokalemia; F12.188 Cannabis abuse with other cannabis-induced disorder; F17.210 Nicotine dependence, cigarettes, uncomplicated; Z79.899 Other long term (current) drug therapy
CPT/HCPCS: 36415; 85025; A4663; J2765; Q0162; Q0163

== ENCOUNTER 2018-01-15 08:19 | Inpatient (IN) | payer OTHER ==
[~2018-01-15] VITALS: Ht 180.3 cm; Wt 57.6 kg
[~2018-01-15 08:19] MED LIST changes: -METO-295 PO
[2018-01-15] MEDS ORDERED: MORPHINE SULFATE 2 MG/1 ML DISP.SYRIN IV ONE (08:45)
[2018-01-15] MEDS ORDERED: IV NORMAL SALINE 1000 ML BAG IV ONE ×2 (08:45→10:15)
[2018-01-15] MEDS ORDERED: ONDANSETRON 4 MG/2 ML VIAL IV ONE (08:45)
[2018-01-15 09:28] LABS: BASOPHILS % (AUTO) 0.1 % (0.0-2.0); LYMPHOCYTES # (AUTO) 0.8 K/uL (20.0-40.0); LYMPHOCYTES % (AUTO) 6.3 % (20.5-51.5); MEAN CORPUSCULAR HEMOGLOBIN 32.5 uug (23.8-33.4); MEAN CORPUSCULAR HGB CONC 36 g/dL (32.5-36.3); MEAN CORPUSCULAR VOLUME 90.6 fL (73.0-96.2); MONOCYTES # (AUTO) 1.2 K/uL (2.0-10.0); MONOCYTES % (AUTO) 9.7 % (0.0-11.0); NEUTROPHILS # (AUTO) 10.8 K/uL (1.8-8.9); NEUTROPHILS % (AUTO) 83.9 % (38.5-71.5); PLATELET COUNT (AUTO) 295 K/uL (152-348); RED BLOOD CELL COUNT(AUTO) 5.43 MIL/uL (4.06-5.63)
[2018-01-15] MEDS ORDERED: MORPHINE SULFATE 4 MG/1 ML DISP.SYRIN ONE ×2 (09:30→10:16)
[2018-01-15] MEDS ORDERED: ONDANSETRON 4 MG/2 ML VIAL ONE ×2 (09:30→10:16)
[2018-01-15 09:36] LABS: BILIRUBIN,DIRECT 0.3 mg/dL (0.0-0.2); BILIRUBIN,TOTAL 1.8 mg/dL (0.2-1.0); CREATININE 3.1 mg/dL (0.6-1.3); TOTAL PROTEIN, SERUM 9.9 g/dL (6.4-8.2)
[2018-01-15 09:43] LABS: POTASSIUM 3.7 mmol/L (3.5-5.1)
[2018-01-15 09:55] LABS: WHITE BLOOD COUNT (AUTO) 12.9 K/uL (3.6-10.2)
[2018-01-15 09:56] LABS: HEMATOCRIT 49.2 % (36.7-47.1); HEMOGLOBIN 17.7 g/dL (12.5-16.3)
[2018-01-15] MEDS ORDERED: MORPHINE SULFATE 4 MG/1 ML DISP.SYRIN IV ONE (10:15)
[2018-01-15] MEDS ORDERED: ONDANSETRON IV *ER 4 MG/2 ML VIAL IV ONE (10:15)
[2018-01-15] MEDS ORDERED: MAGNESIUM HYDROXIDE 30 ML LIQUID UDC PO PRN (10:30)
[2018-01-15] MEDS ORDERED: ACETAMINOPHEN 325 MG TABLET PO PRN (10:30)
[2018-01-15] MEDS ORDERED: Z GUARD REMEDY PASTE 57 GM TUBE TOP PRN (10:30)
[2018-01-15 11:24] VITALS: BP 122/77
[2018-01-15] MEDS: IV NS 1000 ML 1,000 ML IV SCH ×2 (12:28→18:40)
[2018-01-15] MEDS: HYDROCODONE/APAP 5-325MG TABLET PO PRN ×3 (12:47→22:56)
[2018-01-15 13:05] LABS: *BILIRUBIN,URIN NEGATIVE (NEGATIVE); *BLOOD, URINE 1+ (NEGATIVE); *CLARITY,URINE CLEAR (CLEAR); *COLOR,URINE LIGHT YELLOW (YELLOW); *KETONES,URINE NEGATIVE (NEGATIVE); *PROTEIN,URINE TRACE (NEGATIVE); *UROBILINOGEN,URINE 0.2 E.U./dl (NORMAL); LEUKOCYTE ESTERASE ,URINE NEGATIVE (NEGATIVE); NITRITE, URINE NEGATIVE (NEGATIVE); UGLUCOSE TRACE (NEGATIVE)
[2018-01-15 13:27] LABS: BACTERIA,URINE NONE SEEN /HPF (NONE SEEN); SQUAMOUS EPITHELIAL CELL,UR FEW /HPF (NONE SEEN)
[2018-01-15 13:30] LABS: CYSTINE CRYSTALS,URINE FEW /HPF (NONE SEEN); MUCUS,URINE FEW /LPF (0-FEW)
[2018-01-15 13:33] LABS: *URINE TOTAL PROTEIN RANDOM 17.9 mg/dL (<150/24HR)
[2018-01-15 15:14] VITALS: BP 118/73
[2018-01-15 16:58] LABS: CREATININE 2.1 mg/dL (0.6-1.3)
[2018-01-15 17:13] LABS: POTASSIUM 2.8 mmol/L (3.5-5.1)
[2018-01-15] MEDS ORDERED: POTASSIUM CHLORIDE 20 MEQ TAB.PRT.SR PO ONE ×2 (17:30→21:00)
[2018-01-15] MEDS: ONDANSETRON 4 MG/2 ML VIAL IV PRN (18:38)
[2018-01-15 20:01] VITALS: BP 115/71
[2018-01-16] MEDS: IV NS 1000 ML 1,000 ML IV SCH ×3 (02:14→17:44)
[2018-01-16] MEDS: ONDANSETRON 4 MG/2 ML VIAL IV PRN ×3 (04:20→16:52)
[2018-01-16] MEDS: HYDROCODONE/APAP 5-325MG TABLET PO PRN ×5 (04:24→21:39)
[2018-01-16 04:49] VITALS: BP 108/65
[2018-01-16 06:12] LABS: BILIRUBIN,TOTAL 1.6 mg/dL (0.2-1.0); MAGNESIUM 2.6 mg/dL (1.8-2.4)
[2018-01-16 08:09] LABS: BASOPHILS % (AUTO) 0.5 % (0.0-2.0); EOSINOPHILS % (AUTO) 0.1 % (0.0-7.0); LYMPHOCYTES # (AUTO) 1.8 K/uL (20.0-40.0); LYMPHOCYTES % (AUTO) 22.8 % (20.5-51.5); MEAN CORPUSCULAR HEMOGLOBIN 32.9 uug (23.8-33.4); MEAN CORPUSCULAR HGB CONC 35 g/dL (32.5-36.3); MEAN CORPUSCULAR VOLUME 93.5 fL (73.0-96.2); MONOCYTES # (AUTO) 1.3 K/uL (2.0-10.0); NEUTROPHILS # (AUTO) 4.6 K/uL (1.8-8.9); NEUTROPHILS % (AUTO) 59.6 % (38.5-71.5); RED BLOOD CELL COUNT(AUTO) 4.27 MIL/uL (4.06-5.63)
[2018-01-16 08:19] LABS: POTASSIUM 3.7 mmol/L (3.5-5.1)
[2018-01-16 08:20] LABS: CREATININE 1.8 mg/dL (0.6-1.3); PHOSPHOROUS 1.8 mg/dL (2.5-4.9)
[2018-01-16 08:21] LABS: TOTAL PROTEIN, SERUM 7.1 g/dL (6.4-8.2)
[2018-01-16 08:26] LABS: WHITE BLOOD COUNT (AUTO) 7.7 K/uL (3.6-10.2)
[2018-01-16 08:27] LABS: HEMOGLOBIN 14.1 g/dL (12.5-16.3); PLATELET COUNT (AUTO) 200 K/uL (152-348)
[2018-01-16] MEDS: POTASSIUM PHOSPHATE MM 7.5 MMOL in IV DEXTROSE 5% 100 ML IV SCH ×2 (11:13→14:20)
[2018-01-16 11:14] VITALS: BP 111/73
[2018-01-16 11:38] LABS: EOSINOPHILS % (MANUAL) 1 % (0-8); LYMPHOCYTES % (MANUAL) 31 % (20-40); NEUTROPHILS % (MANUAL) 51 % (42-75)
[2018-01-16 11:39] LABS: MONOCYTES % (MANUAL) 17 % (2-10)
[2018-01-16 15:07] VITALS: BP 104/69
[2018-01-16 20:20] VITALS: BP 105/61
[2018-01-17] MEDS: IV NS 1000 ML 1,000 ML IV SCH ×2 (01:13→09:36)
[2018-01-17] MEDS: HYDROCODONE/APAP 5-325MG TABLET PO PRN ×2 (01:58→08:38)
[2018-01-17] MEDS: ONDANSETRON 4 MG/2 ML VIAL IV PRN ×2 (02:00→08:37)
[2018-01-17 05:53] LABS: BASOPHILS # (AUTO) 0.1 K/uL (0.0-8.0); BASOPHILS % (AUTO) 0.6 % (0.0-2.0); EOSINOPHILS # (AUTO) 0.1 K/uL (0.0-0.7); EOSINOPHILS % (AUTO) 0.5 % (0.0-7.0); HEMATOCRIT 36.3 % (36.7-47.1); HEMOGLOBIN 12.7 g/dL (12.5-16.3); LYMPHOCYTES # (AUTO) 2.6 K/uL (20.0-40.0); LYMPHOCYTES % (AUTO) 25.9 % (20.5-51.5); MEAN CORPUSCULAR HEMOGLOBIN 32.9 uug (23.8-33.4); MEAN CORPUSCULAR HGB CONC 35 g/dL (32.5-36.3); MEAN CORPUSCULAR VOLUME 94.1 fL (73.0-96.2); MONOCYTES # (AUTO) 0.9 K/uL (2.0-10.0); MONOCYTES % (AUTO) 8.8 % (0.0-11.0); NEUTROPHILS # (AUTO) 6.3 K/uL (1.8-8.9); NEUTROPHILS % (AUTO) 64.2 % (38.5-71.5); PLATELET COUNT (AUTO) 175 K/uL (152-348); RED BLOOD CELL COUNT(AUTO) 3.86 MIL/uL (4.06-5.63); WHITE BLOOD COUNT (AUTO) 9.9 K/uL (3.6-10.2)
[2018-01-17 06:01] LABS: BILIRUBIN,TOTAL 0.8 mg/dL (0.2-1.0); CREATININE 1.1 mg/dL (0.6-1.3); MAGNESIUM 1.9 mg/dL (1.8-2.4); PHOSPHOROUS 1.5 mg/dL (2.5-4.9); POTASSIUM 3.6 mmol/L (3.5-5.1); TOTAL PROTEIN, SERUM 6.2 g/dL (6.4-8.2)
[2018-01-17 06:47] VITALS: BP 110/61
[2018-01-17] MEDS ORDERED: MORPHINE SULFATE 4 MG/1 ML DISP.SYRIN IV ONE (10:15)
[2018-01-17] MEDS ORDERED: NEUTRA PHOS PACKET PO ONE (10:45)
[2018-01-17] MEDS ORDERED: POTASSIUM PHOSPHATE MM 5 MMOL in IV DEXTROSE 5% 100 ML IV SCH (11:30)
== END 2018-01-17 11:18 | disposition home or self-care (01) | DRG 469 ==
LOC: ER 08:20 → TELE 10:37 → MED 11:13
PROVIDERS: ADMIT Internal Medicine; ATTEND Internal Medicine
DX: N17.9 Acute kidney failure, unspecified (principal); E87.3 Alkalosis; E87.1 Hypo-osmolality and hyponatremia; E83.39 Other disorders of phosphorus metabolism; E86.0 Dehydration; R11.10 Vomiting, unspecified; K31.89 Other diseases of stomach and duodenum; F17.210 Nicotine dependence, cigarettes, uncomplicated; E87.6 Hypokalemia; F41.9 Anxiety disorder, unspecified; F31.9 Bipolar disorder, unspecified; M89.9 Disorder of bone, unspecified; K31.9 Disease of stomach and duodenum, unspecified; T40.7X Poisoning by, adverse effect of and underdosing of cannabis (derivatives); F12.90 Cannabis use, unspecified, uncomplicated
CPT/HCPCS: 36415; 83690; 83735; 84100; 84156; 84300; 85025; A4663; J2270; J2405; J3490; J7030; J7060

== ENCOUNTER 2018-02-06 07:35 | Emergency (ER) | payer OTHER ==
[~2018-02-06] VITALS: Ht 180.3 cm; Wt 57.2 kg
[2018-02-06] MEDS ORDERED: METOCLOPRAMIDE HCL 10 MG/2 ML VIAL IV ONE (09:00)
[2018-02-06] MEDS ORDERED: IV NORMAL SALINE 1000 ML BAG IV ONE (09:00)
[2018-02-06] MEDS ORDERED: ONDANSETRON 4 MG/2 ML VIAL IV ONE (09:00)
[2018-02-06] MEDS ORDERED: diphenhydrAMINE 50 MG/1 ML VIAL IV ONE (09:00)
[2018-02-06] MEDS ORDERED: PANTOPRAZOLE SODIUM 40 MG VIAL IV ONE (09:00)
[2018-02-06] MEDS ORDERED: diphenhydrAMINE 50 MG/1 ML VIAL ONE (09:15)
[2018-02-06] MEDS ORDERED: PANTOPRAZOLE SODIUM 40 MG VIAL ONE (09:15)
[2018-02-06] MEDS ORDERED: METOCLOPRAMIDE HCL 10 MG/2 ML VIAL ONE (09:15)
[2018-02-06] MEDS ORDERED: ONDANSETRON 4 MG/2 ML VIAL ONE (09:15)
[2018-02-06 09:25] LABS: BASOPHILS # (AUTO) 0.1 K/uL (0.0-8.0); BASOPHILS % (AUTO) 1.2 % (0.0-2.0); EOSINOPHILS % (AUTO) 0.4 % (0.0-7.0); HEMATOCRIT 43.3 % (36.7-47.1); HEMOGLOBIN 15.4 g/dL (12.5-16.3); LYMPHOCYTES # (AUTO) 2.3 K/uL (20.0-40.0); LYMPHOCYTES % (AUTO) 34.7 % (20.5-51.5); MEAN CORPUSCULAR HEMOGLOBIN 32.5 uug (23.8-33.4); MEAN CORPUSCULAR HGB CONC 36 g/dL (32.5-36.3); MEAN CORPUSCULAR VOLUME 91.5 fL (73.0-96.2); MONOCYTES # (AUTO) 0.5 K/uL (2.0-10.0); MONOCYTES % (AUTO) 7.9 % (0.0-11.0); NEUTROPHILS # (AUTO) 3.6 K/uL (1.8-8.9); NEUTROPHILS % (AUTO) 55.8 % (38.5-71.5); PLATELET COUNT (AUTO) 218 K/uL (152-348); RED BLOOD CELL COUNT(AUTO) 4.73 MIL/uL (4.06-5.63); WHITE BLOOD COUNT (AUTO) 6.5 K/uL (3.6-10.2)
[2018-02-06 09:31] LABS: CREATININE 1.3 mg/dL (0.6-1.3); POTASSIUM 3.6 mmol/L (3.5-5.1)
--- NOTE | 2018-02-06 09:31 | NUR ---
pt says wants to leave. he does not want to stay any longer. er md at bedside talking to pt.
--- NOTE | 2018-02-06 09:37 | NUR ---
Patient discharged to home in stable conditon. Written and verbal after care instructions given. Patient verbalizes understanding of instructions.pt walks in steady gait.
[2018-02-06 09:38] VITALS: BP 108/91
[2018-02-06 09:43] LABS: BILIRUBIN,DIRECT 0.2 mg/dL (0.0-0.2); BILIRUBIN,TOTAL 1.2 mg/dL (0.2-1.0); TOTAL PROTEIN, SERUM 8.5 g/dL (6.4-8.2)
== END 2018-02-06 09:38 | disposition home or self-care (01) ==
LOC: ER 07:35
DX: G43.A0 Cyclical vomiting, in migraine, not intractable (principal); G89.29 Other chronic pain; F17.200 Nicotine dependence, unspecified, uncomplicated
CPT/HCPCS: 36415; 80048; 80076; 83690; 85025; 96374; 96375; 99284; A4663; C9113; J1200; J2405; J2765; J7030

== ENCOUNTER 2018-05-12 18:03 | Emergency (ER) | payer OTHER ==
[~2018-05-12] VITALS: Ht 182.9 cm; Wt 52.2 kg
[2018-05-12] MEDS ORDERED: CLON1TAB PO (18:17)
[2018-05-12] MEDS ORDERED: FENTANYL CITRATE 100 MCG/2 ML AMPUL IV ONE ×3 (19:00→21:15)
[2018-05-12] MEDS ORDERED: IV NORMAL SALINE 1000 ML BAG IV ONE (19:00)
[2018-05-12] MEDS ORDERED: METOCLOPRAMIDE HCL 10 MG/2 ML VIAL IV ONE (19:00)
[2018-05-12] MEDS ORDERED: FENTANYL CITRATE 100 MCG/2 ML AMPUL ONE ×3 (19:23→21:17)
[2018-05-12] MEDS ORDERED: METOCLOPRAMIDE HCL 10 MG/2 ML VIAL ONE (19:23)
[2018-05-12 19:25] LABS: BASOPHILS % (AUTO) 0.5 % (0.0-2.0); HEMATOCRIT 47.2 % (36.7-47.1); HEMOGLOBIN 16.6 g/dL (12.5-16.3); LYMPHOCYTES # (AUTO) 1.3 K/uL (20.0-40.0); LYMPHOCYTES % (AUTO) 12.9 % (20.5-51.5); MEAN CORPUSCULAR HGB CONC 35 g/dL (32.5-36.3); MEAN CORPUSCULAR VOLUME 93.9 fL (73.0-96.2); MONOCYTES # (AUTO) 0.8 K/uL (2.0-10.0); MONOCYTES % (AUTO) 7.9 % (0.0-11.0); NEUTROPHILS # (AUTO) 7.9 K/uL (1.8-8.9); NEUTROPHILS % (AUTO) 78.7 % (38.5-71.5); PLATELET COUNT (AUTO) 352 K/uL (152-348); RED BLOOD CELL COUNT(AUTO) 5.03 MIL/uL (4.06-5.63)
[2018-05-12 19:37] LABS: BILIRUBIN,DIRECT 0.2 mg/dL (0.0-0.2); BILIRUBIN,TOTAL 1.6 mg/dL (0.2-1.0); CREATININE 1.7 mg/dL (0.6-1.3)
[2018-05-12 19:38] LABS: POTASSIUM 2.8 mmol/L (3.5-5.1)
[2018-05-12] MEDS ORDERED: POTASSIUM CHLORIDE 20 MEQ TAB.PRT.SR PO ONE (19:45)
[2018-05-12] MEDS ORDERED: POTASSIUM CHLORIDE 20 MEQ TAB.PRT.SR ONE (20:37)
[2018-05-12] MEDS ORDERED: ONDANSETRON IV *ER 4 MG/2 ML VIAL IV ONE (20:45)
[2018-05-12] MEDS ORDERED: ONDANSETRON 4 MG/2 ML VIAL ONE (21:09)
--- NOTE | 2018-05-12 21:29 | NUR ---
PATIENT IS PAIN FREE AT THIS TIME.
--- NOTE | 2018-05-12 21:30 | NUR ---
Patient discharged to home in stable conditon. Written and verbal after care instructions given. Patient verbalizes understanding of instructions.
== END 2018-05-12 21:31 | disposition home or self-care (01) ==
LOC: ER 18:08
DX: G43.A0 Cyclical vomiting, in migraine, not intractable (principal); F17.200 Nicotine dependence, unspecified, uncomplicated; F12.10 Cannabis abuse, uncomplicated
CPT/HCPCS: 36415; 80048; 80076; 83690; 84484; 85025; 85730; 96361; 96374; 96375; 96376; 99284; A4663; J2405; J2765; J3010 ×3; J7030; 70030-TC

== ENCOUNTER 2018-05-24 10:26 | Inpatient (IN) | payer OTHER ==
[~2018-05-24] VITALS: Ht 180.3 cm; Wt 49.0 kg
[~2018-05-24 10:26] MED LIST changes: +CLON1TAB PO; -ONDA4TAB8 PO; -SUCR1TAB PO
[2018-05-24] MEDS ORDERED: ONDANSETRON 4 MG/2 ML VIAL IV ONE (12:30)
[2018-05-24] MEDS ORDERED: IV NORMAL SALINE 1000 ML BAG IV ONE (12:30)
[2018-05-24] MEDS ORDERED: FENTANYL CITRATE 100 MCG/2 ML AMPUL IV ONE ×2 (12:30→14:15)
[2018-05-24 12:38] LABS: *BILIRUBIN,URIN NEGATIVE (NEGATIVE); *BLOOD, URINE Trace-intact (NEGATIVE); *CLARITY,URINE SLIGHTLY CLOUDY (CLEAR); *COLOR,URINE YELLOW (YELLOW); *KETONES,URINE TRACE (NEGATIVE); *PROTEIN,URINE 2+ (NEGATIVE); LEUKOCYTE ESTERASE ,URINE NEGATIVE (NEGATIVE); NITRITE, URINE NEGATIVE (NEGATIVE); PH,URINE 7.5 (5.0-8.0); UGLUCOSE NEGATIVE (NEGATIVE)
[2018-05-24 12:42] LABS: BACTERIA,URINE FEW /HPF (NONE SEEN); RBC,URINE NONE SEEN /HPF (0-3); SQUAMOUS EPITHELIAL CELL,UR FEW /HPF (NONE SEEN); WBC,URINE 0-3 /HPF (0-3)
[2018-05-24 12:43] LABS: MUCUS,URINE FEW /LPF (0-FEW)
[2018-05-24 12:54] LABS: BASOPHILS # (AUTO) 0.1 K/uL (0.0-8.0); EOSINOPHILS % (AUTO) 0.2 % (0.0-7.0); HEMATOCRIT 45.2 % (36.7-47.1); HEMOGLOBIN 16.3 g/dL (12.5-16.3); LYMPHOCYTES % (AUTO) 30.4 % (20.5-51.5); MEAN CORPUSCULAR HEMOGLOBIN 33.3 uug (23.8-33.4); MEAN CORPUSCULAR HGB CONC 36 g/dL (32.5-36.3); MEAN CORPUSCULAR VOLUME 92.3 fL (73.0-96.2); MONOCYTES # (AUTO) 0.7 K/uL (2.0-10.0); MONOCYTES % (AUTO) 11.1 % (0.0-11.0); NEUTROPHILS # (AUTO) 3.7 K/uL (1.8-8.9); NEUTROPHILS % (AUTO) 57.3 % (38.5-71.5); PLATELET COUNT (AUTO) 273 K/uL (152-348); WHITE BLOOD COUNT (AUTO) 6.5 K/uL (3.6-10.2)
[2018-05-24] MEDS ORDERED: FENTANYL CITRATE 100 MCG/2 ML AMPUL ONE ×2 (12:54→14:11)
[2018-05-24] MEDS ORDERED: ONDANSETRON 4 MG/2 ML VIAL ONE ×2 (12:54→13:42)
[2018-05-24 13:02] LABS: CREATININE 1.3 mg/dL (0.6-1.3)
[2018-05-24 13:08] LABS: BILIRUBIN,DIRECT 0.3 mg/dL (0.0-0.2); BILIRUBIN,TOTAL 1.2 mg/dL (0.2-1.0); TOTAL PROTEIN, SERUM 8.9 g/dL (6.4-8.2)
[2018-05-24 13:16] LABS: POTASSIUM 2.2 mmol/L (3.5-5.1)
[2018-05-24] MEDS ORDERED: ONDANSETRON IV *ER 4 MG/2 ML VIAL IV ONE (13:30)
[2018-05-24] MEDS ORDERED: POTASSIUM CHLORIDE 20 MEQ TAB.PRT.SR PO ONE (13:30)
[2018-05-24] MEDS ORDERED: POTASSIUM CHLORIDE 20 MEQ TAB.PRT.SR ONE (13:42)
[2018-05-24 15:39] LABS: *AMPHETAMINE, URINE NEGATIVE (NEGATIVE); *BARBITURATE, URINE NEGATIVE (NEGATIVE); *CANNABINOID, URINE POSITIVE (NEGATIVE); *COCCAINE, URINE NEGATIVE (NEGATIVE); *OPIATE, URINE NEGATIVE (NEGATIVE); *PHENCYCLIDINE SCREEN,URINE NEGATIVE (NEGATIVE)
[2018-05-24 15:51] VITALS: BP 108/76
[2018-05-24] MEDS ORDERED: HYDROCODONE/APAP 5-325MG TABLET PO PRN (16:15)
[2018-05-24] MEDS ORDERED: MAGNESIUM HYDROXIDE 30 ML LIQUID UDC PO PRN (16:15)
[2018-05-24] MEDS ORDERED: ACETAMINOPHEN 325 MG TABLET PO PRN (16:15)
[2018-05-24] MEDS ORDERED: ZOLPIDEM 5 MG TABLET PO PRN (16:15)
[2018-05-24] MEDS ORDERED: Z GUARD REMEDY PASTE 57 GM TUBE TOP PRN (16:15)
[2018-05-24] MEDS: IV NS 1000 ML 1,000 ML IV PRN (16:47)
[2018-05-24] MEDS: POTASSIUM CHLORIDE 50 ML IV SCH ×4 (16:47→21:10)
[2018-05-24] MEDS: MORPHINE SULFATE 2 MG/1 ML DISP.SYRIN IV PRN ×2 (17:30→22:06)
[2018-05-24 20:32] VITALS: BP 105/63
[2018-05-24] MEDS: ONDANSETRON 4 MG/2 ML VIAL IV PRN (22:07)
[2018-05-25 00:06] VITALS: BP 98/59
[2018-05-25 04:00] VITALS: BP 109/75
[2018-05-25] MEDS: MORPHINE SULFATE 2 MG/1 ML DISP.SYRIN IV PRN ×5 (05:03→21:20)
[2018-05-25 07:24] LABS: BASOPHILS # (AUTO) 0.1 K/uL (0.0-8.0); EOSINOPHILS # (AUTO) 0.1 K/uL (0.0-0.7); EOSINOPHILS % (AUTO) 1.2 % (0.0-7.0); HEMATOCRIT 35.4 % (36.7-47.1); HEMOGLOBIN 12.7 g/dL (12.5-16.3); LYMPHOCYTES # (AUTO) 2.3 K/uL (20.0-40.0); LYMPHOCYTES % (AUTO) 38.7 % (20.5-51.5); MEAN CORPUSCULAR HEMOGLOBIN 33.1 uug (23.8-33.4); MEAN CORPUSCULAR HGB CONC 36 g/dL (32.5-36.3); MEAN CORPUSCULAR VOLUME 92.5 fL (73.0-96.2); MONOCYTES # (AUTO) 0.5 K/uL (2.0-10.0); MONOCYTES % (AUTO) 8.5 % (0.0-11.0); NEUTROPHILS % (AUTO) 50.6 % (38.5-71.5); PLATELET COUNT (AUTO) 220 K/uL (152-348); RED BLOOD CELL COUNT(AUTO) 3.83 MIL/uL (4.06-5.63); WHITE BLOOD COUNT (AUTO) 5.8 K/uL (3.6-10.2)
[2018-05-25 07:41] LABS: BILIRUBIN,TOTAL 1.1 mg/dL (0.2-1.0); CREATININE 1.1 mg/dL (0.6-1.3); MAGNESIUM 1.9 mg/dL (1.8-2.4); PHOSPHOROUS 2.5 mg/dL (2.5-4.9); TOTAL PROTEIN, SERUM 6.4 g/dL (6.4-8.2)
[2018-05-25 07:44] LABS: POTASSIUM 2.6 mmol/L (3.5-5.1)
[2018-05-25] MEDS ORDERED: POTASSIUM CHLORIDE 20 MEQ TAB.PRT.SR PO ONE (08:00)
[2018-05-25 08:07] LABS: THYROID STIMULATING HORMONE 0.555 mIU/mL (0.358-3.740)
[2018-05-25] MEDS: ONDANSETRON 4 MG/2 ML VIAL IV PRN ×2 (08:33→17:07)
[2018-05-25] MEDS: NICOTINE 21 MG/24HR PATCH TD SCH (08:40)
[2018-05-25] MEDS: IV NS 1000 ML 1,000 ML IV PRN (10:50)
[2018-05-25 11:40] VITALS: BP 119/80
[2018-05-25] MEDS ORDERED: LORAZEPAM 1 MG TABLET PO PRN (13:30)
[2018-05-25] MEDS ORDERED: POTASSIUM CHLORIDE 50 ML IV SCH (14:00)
[2018-05-25] MEDS: POTASSIUM CHLORIDE 10 MEQ, LIDOCAINE-MPF 1% 1 ML in IV DEXTROSE 5% 100 ML IV SCH ×5 (15:31→19:49)
[2018-05-25 16:00] VITALS: BP 99/51
[2018-05-25 20:00] VITALS: BP 96/61
[2018-05-25] MEDS: CLONAZEPAM 1 MG TABLET PO SCH (20:09)
[2018-05-26 00:01] VITALS: BP 105/54
[2018-05-26] MEDS: MORPHINE SULFATE 2 MG/1 ML DISP.SYRIN IV PRN ×2 (02:08→08:00)
[2018-05-26 04:00] VITALS: BP 99/57
[2018-05-26] MEDS: ONDANSETRON 4 MG/2 ML VIAL IV PRN (08:01)
[2018-05-26] MEDS: NICOTINE 21 MG/24HR PATCH TD SCH (08:03)
[2018-05-26] MEDS: CLONAZEPAM 1 MG TABLET PO SCH (08:03)
[2018-05-26] MEDS ORDERED: POTASSIUM CHLORIDE 20 MEQ TAB.PRT.SR PO ONE (08:15)
[2018-05-26] MEDS ORDERED: MORPHINE SULFATE 4 MG/1 ML DISP.SYRIN IV PRN (08:45)
[2018-05-26] MEDS ORDERED: ZOLPIDEM 5 MG TABLET PO PRN (08:45)
[2018-05-26 11:28] VITALS: BP 116/72
[2018-05-26 12:05] VITALS: BP 150/53
== END 2018-05-26 12:45 | disposition home or self-care (01) | DRG 422 ==
LOC: ER 10:29 → TELE 15:00 → MED 05-26 10:16
PROVIDERS: ADMIT Internal Medicine; ATTEND Internal Medicine
DX: E87.6 Hypokalemia (principal); E86.0 Dehydration; E87.3 Alkalosis; E44.1 Mild protein-calorie malnutrition; F12.188 Cannabis abuse with other cannabis-induced disorder; K31.89 Other diseases of stomach and duodenum; R11.2 Nausea with vomiting, unspecified; Z68.1 Body mass index [BMI] 19.9 or less, adult; F31.9 Bipolar disorder, unspecified; F41.9 Anxiety disorder, unspecified; G89.29 Other chronic pain; F11.20 Opioid dependence, uncomplicated; R74.0 Nonspecific elevation of levels of transaminase and lactic acid dehydrogenase [LDH]; E80.6 Other disorders of bilirubin metabolism; M48.00 Spinal stenosis, site unspecified; F10.10 Alcohol abuse, uncomplicated; Z87.19 Personal history of other diseases of the digestive system; F17.200 Nicotine dependence, unspecified, uncomplicated
CPT/HCPCS: 36415; 70030-TC; 71045; 80307; 80346; 80349; 83690; 83735; 84100; 84132; 84443; 85025; 85730; 87086; 93005; A4663; J2001; J2270; J2405; J3010; J3480; J7030; J7060

== ENCOUNTER 2018-06-13 13:03 | Emergency (ER) | payer OTHER ==
[~2018-06-13] VITALS: Ht 170.2 cm; Wt 49.0 kg
--- NOTE | 2018-06-13 13:31 | NUR ---
Patient eloped from facility. ER physician notified.
== END 2018-06-13 13:48 | disposition left against medical advice (07) ==
LOC: ER 13:05
DX: G43.A0 Cyclical vomiting, in migraine, not intractable (principal); G89.29 Other chronic pain; R10.84 Generalized abdominal pain; F17.200 Nicotine dependence, unspecified, uncomplicated; F12.10 Cannabis abuse, uncomplicated
CPT/HCPCS: 99281; A4663

== ENCOUNTER 2018-06-14 19:36 | Emergency (ER) | payer OTHER ==
[~2018-06-14] VITALS: Ht 180.3 cm; Wt 63.5 kg
--- NOTE | 2018-06-14 20:40 | NUR ---
Patient eloped from facility. ER physician notified.
== END 2018-06-14 20:42 | disposition left against medical advice (07) ==
LOC: ER 19:42
DX: Z53.21 Procedure and treatment not carried out due to patient leaving prior to being seen by health care provider (principal)
CPT/HCPCS: A4663

== ENCOUNTER 2018-06-16 18:03 | Emergency (ER) | payer OTHER ==
[~2018-06-16] VITALS: Ht 180.3 cm; Wt 49.9 kg
[2018-06-16] MEDS ORDERED: IV NORMAL SALINE 1000 ML BAG IV ONE ×2 (19:00→20:30)
[2018-06-16] MEDS ORDERED: ONDANSETRON 4 MG/2 ML VIAL IV ONE (19:00)
[2018-06-16] MEDS ORDERED: FENTANYL CITRATE 100 MCG/2 ML AMPUL IV ONE ×3 (19:00→22:45)
[2018-06-16] MEDS ORDERED: ONDANSETRON 4 MG/2 ML VIAL ONE (19:22)
[2018-06-16] MEDS ORDERED: FENTANYL CITRATE 100 MCG/2 ML AMPUL ONE ×2 (19:22→22:37)
[2018-06-16 19:29] LABS: BASOPHILS # (AUTO) 0.1 K/uL (0.0-8.0); BASOPHILS % (AUTO) 1.4 % (0.0-2.0); EOSINOPHILS # (AUTO) 0.1 K/uL (0.0-0.7); EOSINOPHILS % (AUTO) 1.7 % (0.0-7.0); HEMATOCRIT 39.6 % (36.7-47.1); LYMPHOCYTES # (AUTO) 2.3 K/uL (20.0-40.0); LYMPHOCYTES % (AUTO) 41.8 % (20.5-51.5); MEAN CORPUSCULAR HEMOGLOBIN 33.1 uug (23.8-33.4); MEAN CORPUSCULAR HGB CONC 35 g/dL (32.5-36.3); MEAN CORPUSCULAR VOLUME 93.4 fL (73.0-96.2); MONOCYTES # (AUTO) 0.5 K/uL (2.0-10.0); MONOCYTES % (AUTO) 9.3 % (0.0-11.0); NEUTROPHILS # (AUTO) 2.5 K/uL (1.8-8.9); NEUTROPHILS % (AUTO) 45.8 % (38.5-71.5); PLATELET COUNT (AUTO) 288 K/uL (152-348); RED BLOOD CELL COUNT(AUTO) 4.24 MIL/uL (4.06-5.63); WHITE BLOOD COUNT (AUTO) 5.6 K/uL (3.6-10.2)
--- NOTE | 2018-06-16 19:30 | NUR ---
patient verbalized abdominal pain , touching his abdomen ,given pain medication fentanyl 100mcg and zofran iv. normal saline in progress infusing .
[2018-06-16 19:33] LABS: CREATININE 1.2 mg/dL (0.6-1.3); POTASSIUM 3.2 mmol/L (3.5-5.1)
[2018-06-16 19:39] LABS: BILIRUBIN,DIRECT 0.2 mg/dL (0.0-0.2); BILIRUBIN,TOTAL 1.1 mg/dL (0.2-1.0); TOTAL PROTEIN, SERUM 8.1 g/dL (6.4-8.2)
--- NOTE | 2018-06-16 21:05 | NUR ---
patient walk to the nursing station talking to Nilson ,verbalized concern about how to treat his condition he said he has a vomiting syndrome wants to know how to treat himself ,and dont want to miss work , as per doctor chema he needs GI CONSULT .
[2018-06-16 22:48] VITALS: BP 109/70
--- NOTE | 2018-06-16 22:49 | NUR ---
Patient discharged to home in stable conditon. Written and verbal after care instructions given. Patient verbalizes understanding of instructions.steady of gait ,spoked to rolando prior to d/c and thank him .requested applejuice to go with him . patient appears to be comfortable and deneis pain at this time ,.
== END 2018-06-16 22:51 | disposition home or self-care (01) ==
LOC: ER 18:05
DX: G43.A0 Cyclical vomiting, in migraine, not intractable (principal); G89.29 Other chronic pain; F17.200 Nicotine dependence, unspecified, uncomplicated; F12.10 Cannabis abuse, uncomplicated
CPT/HCPCS: 36415; 83690; 85025; A4663; J2405; J3010; J7030

== ENCOUNTER 2018-06-19 04:35 | Emergency (ER) | payer OTHER ==
[~2018-06-19] VITALS: Ht 180.3 cm; Wt 49.9 kg
--- NOTE | 2018-06-19 05:05 | NUR ---
:DEAN AT BEDSIDE EVALUATING PATIENT .
--- NOTE | 2018-06-19 05:10 | NUR ---
DR:DEAN SIMONS ,IVF FLUIDS ,ZOFRAN IVF,CATSCAN PATIENT REFUSED .
--- NOTE | 2018-06-19 05:15 | NUR ---
PATIENT REFUSED ALL OTHER TREATMENT WANTS ONLY IV PAIN MEDICATION .PATIENT SPOKED WITH COSMO .WILL SIGN AMA.
--- NOTE | 2018-06-19 05:23 | NUR ---
Patient does not wish to proceed with medical care recommended by Dr. MORAN . Patient given information related to possible complications, up to and including , which could occur as a result of leaving the hospital at this time. Patient verbalizes understanding of risks involved due to leaving against medical advice. Patient has signed AMA form.
[2018-06-19 05:33] VITALS: BP 96/60
== END 2018-06-19 05:34 | disposition left against medical advice (07) ==
LOC: ER 04:37
DX: G43.A0 Cyclical vomiting, in migraine, not intractable (principal); G89.29 Other chronic pain; R10.84 Generalized abdominal pain; Z76.5 Malingerer [conscious simulation]; F17.200 Nicotine dependence, unspecified, uncomplicated; F12.10 Cannabis abuse, uncomplicated
CPT/HCPCS: 99281; A4663

== ENCOUNTER 2018-07-08 05:11 | Emergency (ER) | payer OTHER ==
[~2018-07-08] VITALS: Ht 180.3 cm; Wt 49.9 kg
--- NOTE | 2018-07-08 05:35 | NUR ---
PT A/OX4, RESPONSIVE TO VERBAL AND TACTILE STIMULI. PT C/O ABD PAIN THAT STARTED ABOUT 1 MONTH AGO, NO PROVOKING FACTOR, SHARP IN QUALITY, DOES NOT RADIATE, 8/10, CONSTANT. ABD NON-DISTENDED IN APPEARANCE, BOWEL SOUNDS ACTIVE, ABD SOFT AND NON-TENDER TO TOUCH. PT HAS A SECONARY COMPLAINT OF N/V FOR ABOUT 1 MONTH. PT HAS AN EXTENSIVE HX OF HYPEREMESIS. PT DENIES C/P, SOB, DIZZINESS, HEADACHE. PT SELF-AMBULATED TO BED, BED IN LOW AND LOCKED POSITION W/ BILATERAL SIDERAILS UP.
--- NOTE | 2018-07-08 05:51 | NUR ---
BULMARO CORTÉS AT BEDSIDE.
[2018-07-08] MEDS ORDERED: IV NORMAL SALINE 1000 ML BAG IV ONE (06:00)
[2018-07-08] MEDS ORDERED: PROCHLORPERAZINE EDISYLATE 10 MG/2 ML VIAL IV ONE (06:00)
[2018-07-08] MEDS ORDERED: diphenhydrAMINE 50 MG/1 ML VIAL IV ONE (06:00)
[2018-07-08] MEDS ORDERED: PROCHLORPERAZINE EDISYLATE 10 MG/2 ML VIAL ONE (06:07)
[2018-07-08] MEDS ORDERED: diphenhydrAMINE 50 MG/1 ML VIAL ONE (06:07)
[2018-07-08] MEDS ORDERED: KETOROLAC TROMETHAMINE 30 MG INJ ONE (06:22)
--- NOTE | 2018-07-08 06:25 | NUR ---
PT MEDICATED ORDERED BY . PT RESTING IN BED AT THIS TIME.
[2018-07-08 06:26] LABS: CREATININE 1.4 mg/dL (0.6-1.3); POTASSIUM 3.3 mmol/L (3.5-5.1)
[2018-07-08 06:27] LABS: BASOPHILS # (AUTO) 0.1 K/uL (0.0-8.0); BASOPHILS % (AUTO) 0.9 % (0.0-2.0); EOSINOPHILS % (AUTO) 0.3 % (0.0-7.0); HEMATOCRIT 45.4 % (36.7-47.1); HEMOGLOBIN 16.5 g/dL (12.5-16.3); LYMPHOCYTES # (AUTO) 1.9 K/uL (20.0-40.0); LYMPHOCYTES % (AUTO) 33.7 % (20.5-51.5); MEAN CORPUSCULAR HEMOGLOBIN 33.2 uug (23.8-33.4); MEAN CORPUSCULAR HGB CONC 36 g/dL (32.5-36.3); MEAN CORPUSCULAR VOLUME 91.6 fL (73.0-96.2); MONOCYTES # (AUTO) 0.5 K/uL (2.0-10.0); MONOCYTES % (AUTO) 7.8 % (0.0-11.0); NEUTROPHILS # (AUTO) 3.3 K/uL (1.8-8.9); NEUTROPHILS % (AUTO) 57.3 % (38.5-71.5); PLATELET COUNT (AUTO) 325 K/uL (152-348); RED BLOOD CELL COUNT(AUTO) 4.96 MIL/uL (4.06-5.63); WHITE BLOOD COUNT (AUTO) 5.8 K/uL (3.6-10.2)
[2018-07-08] MEDS ORDERED: KETOROLAC TROMETHAMINE 30 MG INJ IVP ONE (06:30)
--- NOTE | 2018-07-08 06:31 | NUR ---
Pt pulled out IV and told staff that he is leaving. Inner cannula intact. Pt applied pressure to site with tissue. Reassured and redirected, ineffective. aware. Pt walked out of the ED.
[2018-07-08 06:32] LABS: BILIRUBIN,DIRECT 0.3 mg/dL (0.0-0.2); BILIRUBIN,TOTAL 1.5 mg/dL (0.2-1.0); TOTAL PROTEIN, SERUM 9.4 g/dL (6.4-8.2)
== END 2018-07-08 06:30 | disposition left against medical advice (07) ==
LOC: ER 05:16
DX: G43.A0 Cyclical vomiting, in migraine, not intractable (principal); F31.9 Bipolar disorder, unspecified; F41.9 Anxiety disorder, unspecified; F12.10 Cannabis abuse, uncomplicated; F17.200 Nicotine dependence, unspecified, uncomplicated
CPT/HCPCS: 36415; 83690; 85025; A4663; J0780; J1200; J1885; J7030

== ENCOUNTER 2018-11-16 12:42 | Emergency (ER) | payer OTHER ==
[~2018-11-16] VITALS: Ht 180.3 cm; Wt 54.4 kg
[2018-11-16] MEDS ORDERED: IV NORMAL SALINE 1000 ML BAG IV ONE ×2 (13:15→16:00)
[2018-11-16 13:43] LABS: BILIRUBIN,DIRECT 0.2 mg/dL (0.0-0.2); BILIRUBIN,TOTAL 1.3 mg/dL (0.2-1.0); CREATININE 1.6 mg/dL (0.6-1.3); TOTAL PROTEIN, SERUM 9.9 g/dL (6.4-8.2)
[2018-11-16 13:45] LABS: POTASSIUM 2.7 mmol/L (3.5-5.1)
[2018-11-16] MEDS ORDERED: MAGNESIUM SULFATE/D5W 100 ML IV STA (13:53)
[2018-11-16] MEDS ORDERED: POTASSIUM CHLORIDE 20 MEQ TAB.PRT.SR ONE (13:58)
[2018-11-16] MEDS ORDERED: MAGNESIUM SULFATE/D5W 200 ML ONE (13:58)
[2018-11-16] MEDS ORDERED: POTASSIUM CHLORIDE 20 MEQ TAB.PRT.SR PO ONE (14:00)
[2018-11-16 14:01] LABS: HEMATOCRIT 48.5 % (36.7-47.1); HEMOGLOBIN 16.9 g/dL (12.5-16.3); MEAN CORPUSCULAR HEMOGLOBIN 31.5 uug (23.8-33.4); MEAN CORPUSCULAR HGB CONC 35 g/dL (32.5-36.3); MEAN CORPUSCULAR VOLUME 90.5 fL (73.0-96.2); PLATELET COUNT (AUTO) 222 K/uL (152-348); RED BLOOD CELL COUNT(AUTO) 5.36 MIL/uL (4.06-5.63)
[2018-11-16 14:02] LABS: BASOPHILS % (AUTO) 0.5 % (0.0-2.0); EOSINOPHILS % (AUTO) 0.1 % (0.0-7.0); LYMPHOCYTES # (AUTO) 1.3 K/uL (20.0-40.0); LYMPHOCYTES % (AUTO) 14.8 % (20.5-51.5); MONOCYTES # (AUTO) 1.2 K/uL (2.0-10.0); MONOCYTES % (AUTO) 13.4 % (0.0-11.0); NEUTROPHILS # (AUTO) 6.3 K/uL (1.8-8.9); NEUTROPHILS % (AUTO) 71.2 % (38.5-71.5)
[2018-11-16 15:30] LABS: CREATININE 1.5 mg/dL (0.6-1.3); POTASSIUM 3.4 mmol/L (3.5-5.1)
--- NOTE | 2018-11-16 17:11 | NUR ---
PT DRINKINING OWN GATORADE.
--- NOTE | 2018-11-16 17:45 | NUR ---
Patient discharged to home in stable conditon. Written and verbal after care instructions given. Patient verbalizes understanding of instructions.PT SAYS FEELS BETTER. PT WALKS IN STEADY GAIT.
[2018-11-16 17:46] VITALS: BP 108/77
[2018-12-14] MEDS ORDERED: CLON1TAB PO (12:12)
== END 2018-11-16 17:47 | disposition home or self-care (01) ==
LOC: ER 12:42
DX: E87.6 Hypokalemia (principal); E87.1 Hypo-osmolality and hyponatremia; J06.9 Acute upper respiratory infection, unspecified; N17.9 Acute kidney failure, unspecified; F12.10 Cannabis abuse, uncomplicated; F17.200 Nicotine dependence, unspecified, uncomplicated; Z79.899 Other long term (current) drug therapy
CPT/HCPCS: 36415; 71045; 80048 ×2; 80076; 85025; 86403; 87070; 96361; 96365; 99284; J3475; A4663; J7030

== ENCOUNTER 2018-11-21 12:25 | Emergency (ER) | payer OTHER ==
[~2018-11-21] VITALS: Ht 182.9 cm; Wt 51.3 kg
[2018-11-21 13:10] LABS: BASOPHILS # (AUTO) 0.1 K/uL (0.0-8.0); BASOPHILS % (AUTO) 0.8 % (0.0-2.0); EOSINOPHILS % (AUTO) 0.1 % (0.0-7.0); HEMOGLOBIN 16.2 g/dL (12.5-16.3); NEUTROPHILS # (AUTO) 7.6 K/uL (1.8-8.9)
[2018-11-21 13:17] LABS: CREATININE 1.8 mg/dL (0.6-1.3)
[2018-11-21 13:20] LABS: POTASSIUM 2.4 mmol/L (3.5-5.1)
[2018-11-21 13:26] LABS: HEMATOCRIT 45.8 % (36.7-47.1); LYMPHOCYTES % (AUTO) 18.2 % (20.5-51.5); MEAN CORPUSCULAR HEMOGLOBIN 31.2 uug (23.8-33.4); MEAN CORPUSCULAR HGB CONC 35 g/dL (32.5-36.3); MEAN CORPUSCULAR VOLUME 88.3 fL (73.0-96.2); MONOCYTES # (AUTO) 1.4 K/uL (2.0-10.0); MONOCYTES % (AUTO) 12.3 % (0.0-11.0); NEUTROPHILS % (AUTO) 68.6 % (38.5-71.5); PLATELET COUNT (AUTO) 417 K/uL (152-348); RED BLOOD CELL COUNT(AUTO) 5.18 MIL/uL (4.06-5.63); WHITE BLOOD COUNT (AUTO) 11.1 K/uL (3.6-10.2)
[2018-11-21] MEDS ORDERED: POTASSIUM CHLORIDE 50 ML IV SCH (13:45)
[2018-11-21] MEDS ORDERED: POTASSIUM CHLORIDE 200 ML ONE (14:04)
--- NOTE | 2018-11-21 14:30 | NUR ---
Per pt to be admitted to tele. Per ER admitting they need obtain authorization from pt's insurance and will call them.
--- NOTE | 2018-11-21 14:58 | NUR ---
Per he spoke with from [facility] via telephone and he accepted the pt.
--- NOTE | 2018-11-21 15:00 | NUR ---
Pt resting with NAD noted at this time.
--- NOTE | 2018-11-21 15:04 | NUR ---
Per ER admitting [facility] to call back with transfer information.
--- NOTE | 2018-11-21 15:20 | NUR ---
RICH: Lurdes (case monitor at [facility]) [phone] ext [phone].
--- NOTE | 2018-11-21 16:10 | NUR ---
Received telephone call from Lurdes from [facility] who stated pt will be transfered to [address], for report, authorization# [id number].
--- NOTE | 2018-11-21 16:20 | NUR ---
Received call from Eddy , room has been changed to 612b, for report.
--- NOTE | 2018-11-21 16:25 | NUR ---
Called [facility] for transport, eta 45 mins, trip#[id number].
--- NOTE | 2018-11-21 17:00 | NUR ---
Pt trans to [facility] via LONNY Akers noted upon trans. SBAR report given via telephone to Ida at [facility].
[2018-12-14] MEDS ORDERED: CLON1TAB PO (12:12)
== END 2018-11-21 17:04 | disposition short-term general hospital (02) ==
LOC: ER 12:25
DX: E87.6 Hypokalemia (principal); G43.A0 Cyclical vomiting, in migraine, not intractable; F17.200 Nicotine dependence, unspecified, uncomplicated; F12.10 Cannabis abuse, uncomplicated; Z79.899 Other long term (current) drug therapy
CPT/HCPCS: 36415; 80048; 85025; 93005; 96365; 96366; 99285; J3480; A4663

== ENCOUNTER 2018-11-27 19:27 | Emergency (ER) | payer OTHER ==
[~2018-11-27] VITALS: Ht 182.9 cm; Wt 52.2 kg
--- NOTE | 2018-11-27 19:46 | NUR ---
Dr. Shanks at bedside for MSE.
[2018-11-27] MEDS ORDERED: HYDROCODONE/APAP 10-325 MG TABLET PO ONE ×2 (20:00→21:00)
[2018-11-27] MEDS ORDERED: ONDANSETRON ODT 4 MG TAB.RAPDIS SL ONE (20:00)
--- NOTE | 2018-11-27 20:06 | NUR ---
Xray at bedside.
[2018-11-27] MEDS ORDERED: HYDROCODONE/APAP 10-325 MG TABLET ONE ×2 (20:08→20:59)
[2018-11-27] MEDS ORDERED: ONDANSETRON ODT 4 MG TAB.RAPDIS ONE (20:08)
--- NOTE | 2018-11-27 20:09 | NUR ---
Pt out of ER for CT.
[2018-11-27 20:22] LABS: CREATININE 1.2 mg/dL (0.6-1.3)
--- NOTE | 2018-11-27 20:27 | NUR ---
Pt back to ER from CT.
[2018-11-27] MEDS ORDERED: POTASSIUM CHLORIDE 20 MEQ TAB.PRT.SR ONE (20:59)
[2018-11-27] MEDS ORDERED: POTASSIUM CHLORIDE 20 MEQ TAB.PRT.SR PO ONE (21:00)
--- NOTE | 2018-11-27 21:02 | NUR ---
Patient discharged to home in stable conditon. Written and verbal after care instructions given. Patient verbalizes understanding of instructions. Patient ambulated out of ER with steady gait, no acute signs of distress, VSS, all belongings taken.
[2018-11-27 21:05] VITALS: BP 133/87
[2018-12-14] MEDS ORDERED: CLON1TAB PO (12:12)
== END 2018-11-27 21:05 | disposition home or self-care (01) ==
LOC: ER 19:31
DX: S70.01XA Contusion of right hip, initial encounter (principal); S00.83XA Contusion of other part of head, initial encounter; G89.4 Chronic pain syndrome; F12.10 Cannabis abuse, uncomplicated; F17.290 Nicotine dependence, other tobacco product, uncomplicated; Z76.5 Malingerer [conscious simulation]; Z71.6 Tobacco abuse counseling; R11.10 Vomiting, unspecified; Z79.899 Other long term (current) drug therapy; W19.XXXA Unspecified fall, initial encounter; Y93.89 Activity, other specified; Y92.89 Other specified places as the place of occurrence of the external cause; Y99.8 Other external cause status
CPT/HCPCS: 36415; 70450; 72170; 73502; A4663; Q0162

== ENCOUNTER 2018-12-01 10:00 | Emergency (ER) | payer OTHER ==
[~2018-12-01] VITALS: Ht 172.7 cm; Wt 52.2 kg
--- NOTE | 2018-12-01 10:10 | NUR ---
er md bedside for mse, pt requesting ketamine for pain.
[2018-12-01] MEDS ORDERED: ONDANSETRON 4 MG/2 ML VIAL IV ONE (10:30)
[2018-12-01] MEDS ORDERED: FAMOTIDINE. 20 MG/2 ML VIAL IV ONE ×2 (10:45→10:52)
[2018-12-01] MEDS ORDERED: ONDANSETRON 4 MG/2 ML VIAL ONE (10:52)
[2018-12-01 11:08] LABS: BASOPHILS # (AUTO) 0.1 K/uL (0.0-8.0); BASOPHILS % (AUTO) 0.7 % (0.0-2.0); EOSINOPHILS % (AUTO) 0.1 % (0.0-7.0); HEMOGLOBIN 13.5 g/dL (12.5-16.3); LYMPHOCYTES # (AUTO) 1.3 K/uL (20.0-40.0); LYMPHOCYTES % (AUTO) 15.5 % (20.5-51.5); MEAN CORPUSCULAR HEMOGLOBIN 31.7 uug (23.8-33.4); MEAN CORPUSCULAR HGB CONC 35 g/dL (32.5-36.3); MEAN CORPUSCULAR VOLUME 91.3 fL (73.0-96.2); MONOCYTES # (AUTO) 0.5 K/uL (2.0-10.0); MONOCYTES % (AUTO) 5.7 % (0.0-11.0); NEUTROPHILS # (AUTO) 6.4 K/uL (1.8-8.9); PLATELET COUNT (AUTO) 342 K/uL (152-348); RED BLOOD CELL COUNT(AUTO) 4.27 MIL/uL (4.06-5.63); WHITE BLOOD COUNT (AUTO) 8.2 K/uL (3.6-10.2)
[2018-12-01] MEDS ORDERED: MORPHINE SULFATE 4 MG/1 ML DISP.SYRIN ONE (11:15)
[2018-12-01] MEDS ORDERED: MORPHINE SULFATE 4 MG/1 ML DISP.SYRIN IM ONE (11:15)
[2018-12-01] MEDS ORDERED: HALOPERIDOL LACTATE 5 MG/1 ML VIAL IV ONE (11:15)
[2018-12-01 11:22] LABS: CREATININE 0.9 mg/dL (0.6-1.3); POTASSIUM 4.2 mmol/L (3.5-5.1)
[2018-12-01 11:27] LABS: BILIRUBIN,DIRECT 0.2 mg/dL (0.0-0.2); BILIRUBIN,TOTAL 0.8 mg/dL (0.2-1.0); TOTAL PROTEIN, SERUM 8.3 g/dL (6.4-8.2)
[2018-12-01] MEDS ORDERED: IV NORMAL SALINE 500 ML BAG IV ONE (11:45)
--- NOTE | 2018-12-01 13:10 | NUR ---
pt resting, arousable.vss.
--- NOTE | 2018-12-01 14:20 | NUR ---
PT IS ACCEPTED TO [facility] PER PT INSURRANCE. ADMINTTNG DRShemar IS DR. JOHANNA COLLINS, ROOM 402, REPORT NUMBER IS [phone]. AUTHORIZATION FOR JEROME IS [id number], CALLED EDMUNDO CANO 1530, TRIP NUMBER [id number]
--- NOTE | 2018-12-01 16:03 | NUR ---
JEROME AT BEDSIDE TO TRANSFER THE PT TO [facility]
[2018-12-14] MEDS ORDERED: CLON1TAB PO (12:12)
== END 2018-12-01 16:08 | disposition short-term general hospital (02) ==
LOC: ER 10:00
DX: E86.0 Dehydration (principal); G43.A0 Cyclical vomiting, in migraine, not intractable; R64 Cachexia; R10.9 Unspecified abdominal pain; F17.200 Nicotine dependence, unspecified, uncomplicated; F12.10 Cannabis abuse, uncomplicated; Z79.899 Other long term (current) drug therapy
CPT/HCPCS: 36415; 80048; 80076; 83605; 83690; 83735; 84484; 85025; 85730; 93005; 96361; 96372; 96374; 96375; 99285; J2270; J2405; J3490; 70030-TC; A4663

== ENCOUNTER 2018-12-12 18:05 | Emergency (ER) | payer OTHER ==
[~2018-12-12] VITALS: Ht 172.7 cm; Wt 52.2 kg
--- NOTE | 2018-12-12 20:27 | NUR ---
Haresh pan in ED - 12/13/18 at 0255 by RICHY Patient eloped from facility. ER physician notified.
--- NOTE | 2018-12-12 20:28 | NUR ---
Pt left without being seen by MD.
[2018-12-13] MEDS ORDERED: PANT40TA2 PO (05:17)
[2018-12-13] MEDS ORDERED: METO-295 PO (05:17)
[2018-12-13] MEDS ORDERED: LORA2TAB PO (05:17)
[2018-12-13] MEDS ORDERED: ONDA4TAB11 PO (05:17)
[2018-12-13] MEDS ORDERED: BUSP10TA3 PO (05:17)
[2018-12-14] MEDS ORDERED: CLON1TAB PO (12:12)
== END 2018-12-13 03:08 | disposition left against medical advice (07) ==
LOC: ER 18:05
DX: Z53.21 Procedure and treatment not carried out due to patient leaving prior to being seen by health care provider (principal)
CPT/HCPCS: A4663

== ENCOUNTER 2018-12-13 04:15 | Inpatient (IN) | payer OTHER ==
[~2018-12-13] VITALS: Ht 172.7 cm; Wt 55.8 kg
[2018-12-13] MEDS ORDERED: IV NORMAL SALINE 1000 ML BAG IV ONE ×2 (04:30→05:15)
[2018-12-13] MEDS ORDERED: PANTOPRAZOLE SODIUM 40 MG VIAL IV ONE (04:30)
[2018-12-13] MEDS ORDERED: ONDANSETRON 4 MG/2 ML VIAL IV ONE (04:30)
[2018-12-13] MEDS ORDERED: ONDANSETRON 4 MG/2 ML VIAL ONE (04:33)
[2018-12-13] MEDS ORDERED: PANTOPRAZOLE SODIUM 40 MG VIAL ONE (04:33)
[2018-12-13 04:59] LABS: BASOPHILS # (AUTO) 0.1 K/uL (0.0-8.0); BASOPHILS % (AUTO) 0.5 % (0.0-2.0); HEMATOCRIT 45.1 % (36.7-47.1); HEMOGLOBIN 15.8 g/dL (12.5-16.3); LYMPHOCYTES # (AUTO) 1.1 K/uL (20.0-40.0); LYMPHOCYTES % (AUTO) 7.3 % (20.5-51.5); MEAN CORPUSCULAR HEMOGLOBIN 31.4 uug (23.8-33.4); MEAN CORPUSCULAR HGB CONC 35 g/dL (32.5-36.3); MEAN CORPUSCULAR VOLUME 89.8 fL (73.0-96.2); MONOCYTES # (AUTO) 1.2 K/uL (2.0-10.0); MONOCYTES % (AUTO) 8.4 % (0.0-11.0); NEUTROPHILS # (AUTO) 12.4 K/uL (1.8-8.9); NEUTROPHILS % (AUTO) 83.8 % (38.5-71.5); PLATELET COUNT (AUTO) 514 K/uL (152-348); RED BLOOD CELL COUNT(AUTO) 5.02 MIL/uL (4.06-5.63); WHITE BLOOD COUNT (AUTO) 14.8 K/uL (3.6-10.2)
[2018-12-13 05:01] LABS: CREATININE 2.6 mg/dL (0.6-1.3)
[2018-12-13 05:05] LABS: BILIRUBIN,DIRECT 0.2 mg/dL (0.0-0.2); BILIRUBIN,TOTAL 1.1 mg/dL (0.2-1.0); TOTAL PROTEIN, SERUM 10.4 g/dL (6.4-8.2)
[2018-12-13] MEDS ORDERED: ONDA4TAB11 PO (05:17)
[2018-12-13] MEDS ORDERED: BUSP10TA3 PO (05:17)
[2018-12-13] MEDS ORDERED: LORA2TAB PO (05:17)
[2018-12-13] MEDS ORDERED: METO-295 PO (05:17)
[2018-12-13] MEDS ORDERED: PANT40TA2 PO (05:17)
[2018-12-13] MEDS ORDERED: IV D5 1/2 NS 1000 ML 1,000 ML IV PRN (05:25)
[2018-12-13] MEDS ORDERED: ACETAMINOPHEN 325 MG TABLET PO PRN (05:30)
[2018-12-13] MEDS ORDERED: ONDANSETRON 4 MG/2 ML VIAL IV PRN (05:30)
[2018-12-13] MEDS ORDERED: MAGNESIUM HYDROXIDE 30 ML LIQUID UDC PO PRN (05:30)
[2018-12-13] MEDS ORDERED: Z GUARD REMEDY PASTE 57 GM TUBE TOP PRN (05:30)
[2018-12-13] MEDS ORDERED: LORAZEPAM 2 MG/1 ML VIAL ONE (05:41)
[2018-12-13] MEDS ORDERED: LORAZEPAM 2 MG/1 ML VIAL IV ONE (05:45)
[2018-12-13 08:06] VITALS: BP 123/67
[2018-12-13 11:37] VITALS: BP 102/56
[2018-12-13] MEDS: busPIRone 10 MG TABLET PO SCH (12:32)
[2018-12-13] MEDS: ESCITALOPRAM OXALATE 10 MG TABLET PO SCH (12:32)
[2018-12-13] MEDS: MORPHINE SULFATE 2 MG/1 ML DISP.SYRIN IV PRN ×3 (13:42→23:03)
[2018-12-13] MEDS: LORAZEPAM 2 MG/1 ML VIAL IV PRN ×2 (15:07→21:14)
[2018-12-13 15:34] VITALS: BP 135/82
[2018-12-13] MEDS: IV D5 1/2 NS 1000 ML 1,000 ML IV PRN (18:46)
[2018-12-13 19:29] VITALS: BP 114/84
[2018-12-13 23:44] VITALS: BP 111/78
[2018-12-14] MEDS: IV D5 1/2 NS 1000 ML 1,000 ML IV PRN ×2 (01:56→11:09)
[2018-12-14] MEDS: MORPHINE SULFATE 2 MG/1 ML DISP.SYRIN IV PRN ×2 (02:58→07:59)
[2018-12-14] MEDS: LORAZEPAM 2 MG/1 ML VIAL IV PRN (03:06)
[2018-12-14 03:35] VITALS: BP 116/71
[2018-12-14 06:04] LABS: BASOPHILS # (AUTO) 0.1 K/uL (0.0-8.0); BASOPHILS % (AUTO) 0.9 % (0.0-2.0); EOSINOPHILS % (AUTO) 0.5 % (0.0-7.0); HEMATOCRIT 33.7 % (36.7-47.1); HEMOGLOBIN 11.7 g/dL (12.5-16.3); LYMPHOCYTES # (AUTO) 1.2 K/uL (20.0-40.0); LYMPHOCYTES % (AUTO) 20.5 % (20.5-51.5); MEAN CORPUSCULAR HEMOGLOBIN 31.6 uug (23.8-33.4); MEAN CORPUSCULAR HGB CONC 35 g/dL (32.5-36.3); MEAN CORPUSCULAR VOLUME 91.2 fL (73.0-96.2); MONOCYTES # (AUTO) 0.6 K/uL (2.0-10.0); MONOCYTES % (AUTO) 9.7 % (0.0-11.0); NEUTROPHILS % (AUTO) 68.4 % (38.5-71.5); PLATELET COUNT (AUTO) 340 K/uL (152-348); WHITE BLOOD COUNT (AUTO) 5.9 K/uL (3.6-10.2)
[2018-12-14 06:10] LABS: MAGNESIUM 2.1 mg/dL (1.8-2.4); PHOSPHOROUS 2.2 mg/dL (2.5-4.9); POTASSIUM 3.7 mmol/L (3.5-5.1); TOTAL PROTEIN, SERUM 6.7 g/dL (6.4-8.2)
[2018-12-14 06:17] LABS: THYROID STIMULATING HORMONE 0.192 mIU/mL (0.358-3.740)
[2018-12-14] MEDS: busPIRone 10 MG TABLET PO SCH (09:00)
[2018-12-14] MEDS: ESCITALOPRAM OXALATE 10 MG TABLET PO SCH (09:00)
[2018-12-14] MEDS ORDERED: PANTOPRAZOLE SODIUM 40 MG VIAL IV SCH (09:00)
[2018-12-14 11:50] VITALS: BP 100/61
[2018-12-14] MEDS ORDERED: CLON1TAB PO (12:12)
[2018-12-14 14:36] LABS: *BILIRUBIN,URIN NEGATIVE (NEGATIVE); *CLARITY,URINE CLEAR (CLEAR); *COLOR,URINE YELLOW (YELLOW); *KETONES,URINE NEGATIVE (NEGATIVE); *UROBILINOGEN,URINE 0.2 E.U./dl (NORMAL); LEUKOCYTE ESTERASE ,URINE NEGATIVE (NEGATIVE); NITRITE, URINE NEGATIVE (NEGATIVE); UGLUCOSE 1+ (NEGATIVE)
[2018-12-14 14:45] LABS: *BLOOD, URINE TRACE (NEGATIVE)
[2018-12-14 14:46] LABS: WBC,URINE 0-3 /HPF (0-3)
[2018-12-14 14:47] LABS: MUCUS,URINE MANY /LPF (0-FEW)
[2018-12-14 15:27] LABS: *CREATININE,URINE 237.6 mg/dL (30-125); *URINE TOTAL PROTEIN RANDOM 31.6 mg/dL (<150/24HR)
[2018-12-15] MEDS ORDERED: FAMOTIDINE. 20 MG/2 ML VIAL IV SCH (09:00)
[2018-12-15 14:06] LABS: A/G RATIO 1.3 (0.7-1.7); ALBUMIN 3.5 g/dL (2.9-4.4); ALPHA-1-GLOBULIN 0.2 g/dL (0.0-0.4); ALPHA-2-GLOBULIN 0.7 g/dL (0.4-1.0); BETA GLOBULIN 0.9 g/dL (0.7-1.3); GLOBULIN, TOTAL 2.8 g/dL (2.2-3.9); M-SPIKE Not Observed g/dL (Not Observed)
[2018-12-15] MEDS ORDERED: CLON2TAB PO (15:31)
== END 2018-12-14 12:45 | disposition home or self-care (01) | DRG 469 ==
LOC: ER 04:16 → TELE3 07:20
PROVIDERS: ADMIT Registered Nurse; ATTEND Nurse Practitioner Acute Care
DX: N17.9 Acute kidney failure, unspecified (principal); E83.52 Hypercalcemia; K31.89 Other diseases of stomach and duodenum; F12.988 Cannabis use, unspecified with other cannabis-induced disorder; E86.0 Dehydration; R11.2 Nausea with vomiting, unspecified; F19.20 Other psychoactive substance dependence, uncomplicated; M48.00 Spinal stenosis, site unspecified; G89.29 Other chronic pain; F31.9 Bipolar disorder, unspecified; F41.9 Anxiety disorder, unspecified; Z76.5 Malingerer [conscious simulation]; Z98.890 Other specified postprocedural states; F15.182 Other stimulant abuse with stimulant-induced sleep disorder; R55 Syncope and collapse
CPT/HCPCS: 36415; 71045; 83690; 83735; 83970; 84100; 84155; 84156; 84165; 84300; 84443; 85025; 87040; 93005; 93307; 93880; A4663; C9113; G0378; J2060; J2270; J2405; J3490; J7030

== ENCOUNTER 2018-12-15 14:50 | Emergency (ER) | payer OTHER ==
[~2018-12-15] VITALS: Ht 182.9 cm; Wt 49.9 kg
[~2018-12-15 14:50] MED LIST changes: +BUSP10TA3 PO; +METO-295 PO; +ONDA4TAB11 PO; +PANT40TA2 PO
--- NOTE | 2018-12-15 15:10 | NUR ---
BULMARO CORTÉS AT BEDSIDE FOR MSE.
[2018-12-15] MEDS ORDERED: IV NORMAL SALINE 1000 ML BAG IV ONE (15:15)
[2018-12-15] MEDS ORDERED: PANTOPRAZOLE SODIUM 40 MG VIAL IV ONE (15:15)
[2018-12-15] MEDS ORDERED: ONDANSETRON 4 MG/2 ML VIAL IV ONE (15:15)
[2018-12-15] MEDS ORDERED: ONDANSETRON 4 MG/2 ML VIAL ONE (15:20)
[2018-12-15] MEDS ORDERED: PANTOPRAZOLE SODIUM 40 MG VIAL ONE (15:21)
[2018-12-15] MEDS ORDERED: CLON2TAB PO (15:31)
[2018-12-15 15:46] LABS: BASOPHILS # (AUTO) 0.1 K/uL (0.0-8.0); BASOPHILS % (AUTO) 0.8 % (0.0-2.0); EOSINOPHILS % (AUTO) 0.1 % (0.0-7.0); HEMOGLOBIN 13.1 g/dL (12.5-16.3); LYMPHOCYTES # (AUTO) 1.4 K/uL (20.0-40.0); LYMPHOCYTES % (AUTO) 18.7 % (20.5-51.5); MEAN CORPUSCULAR HEMOGLOBIN 31.5 uug (23.8-33.4); MEAN CORPUSCULAR HGB CONC 34 g/dL (32.5-36.3); MEAN CORPUSCULAR VOLUME 91.7 fL (73.0-96.2); MONOCYTES # (AUTO) 0.5 K/uL (2.0-10.0); MONOCYTES % (AUTO) 7.1 % (0.0-11.0); NEUTROPHILS # (AUTO) 5.3 K/uL (1.8-8.9); NEUTROPHILS % (AUTO) 73.3 % (38.5-71.5); PLATELET COUNT (AUTO) 407 K/uL (152-348); RED BLOOD CELL COUNT(AUTO) 4.14 MIL/uL (4.06-5.63); WHITE BLOOD COUNT (AUTO) 7.2 K/uL (3.6-10.2)
[2018-12-15 15:53] LABS: POTASSIUM 3.7 mmol/L (3.5-5.1)
[2018-12-15 15:59] LABS: BILIRUBIN,DIRECT 0.2 mg/dL (0.0-0.2); BILIRUBIN,TOTAL 1.2 mg/dL (0.2-1.0); TOTAL PROTEIN, SERUM 8.3 g/dL (6.4-8.2)
--- NOTE | 2018-12-15 17:22 | NUR ---
Patient discharged to home in stable conditon. Written and verbal after care instructions given. Patient verbalizes understanding of instructions. ALL BELONGINGS W/ PT. PT SELF-AMBULATED W/O DIFFICULTY. 20G IV ACCESS IN REJ REMOVED PRIOR TO D/C - INNER CANNULA INTACT.
[2018-12-15 18:32] VITALS: BP 128/72
== END 2018-12-15 17:44 | disposition home or self-care (01) ==
LOC: ER 14:50
DX: G43.A0 Cyclical vomiting, in migraine, not intractable (principal); F17.200 Nicotine dependence, unspecified, uncomplicated; F12.10 Cannabis abuse, uncomplicated; Z79.899 Other long term (current) drug therapy
CPT/HCPCS: 36415; 70450; 72040; 80048; 80076; 85025; 96361; 96374; 96375; 99284; C9113; J2405; A4663; J7030

== ENCOUNTER 2018-12-17 15:23 | Emergency (ER) | payer OTHER ==
[~2018-12-17] VITALS: Ht 182.9 cm; Wt 49.9 kg
[~2018-12-17 15:23] MED LIST changes: -CLON1TAB PO; +CLON2TAB PO
[2018-12-17] MEDS ORDERED: IV NORMAL SALINE 500 ML BAG IV ONE (16:15)
[2018-12-17] MEDS ORDERED: HALOPERIDOL LACTATE 5 MG/1 ML VIAL IM ONE (16:15)
[2018-12-17] MEDS ORDERED: IV NORMAL SALINE 1000 ML BAG IV ONE (16:15)
[2018-12-17] MEDS ORDERED: LORAZEPAM 2 MG/1 ML VIAL IV ONE (16:15)
[2018-12-17] MEDS ORDERED: LORAZEPAM 2 MG/1 ML VIAL ONE (16:21)
[2018-12-17] MEDS ORDERED: HALOPERIDOL LACTATE 5 MG/1 ML VIAL ONE (16:22)
[2018-12-17 17:00] LABS: BASOPHILS # (AUTO) 0.1 K/uL (0.0-8.0); BASOPHILS % (AUTO) 1.2 % (0.0-2.0); EOSINOPHILS % (AUTO) 0.3 % (0.0-7.0); HEMOGLOBIN 13.9 g/dL (12.5-16.3); LYMPHOCYTES % (AUTO) 27.4 % (20.5-51.5); MEAN CORPUSCULAR HEMOGLOBIN 31.6 uug (23.8-33.4); MEAN CORPUSCULAR HGB CONC 35 g/dL (32.5-36.3); MEAN CORPUSCULAR VOLUME 90.7 fL (73.0-96.2); MONOCYTES # (AUTO) 0.5 K/uL (2.0-10.0); MONOCYTES % (AUTO) 7.5 % (0.0-11.0); NEUTROPHILS # (AUTO) 4.5 K/uL (1.8-8.9); NEUTROPHILS % (AUTO) 63.6 % (38.5-71.5); PLATELET COUNT (AUTO) 435 K/uL (152-348); RED BLOOD CELL COUNT(AUTO) 4.41 MIL/uL (4.06-5.63); WHITE BLOOD COUNT (AUTO) 7.1 K/uL (3.6-10.2)
[2018-12-17] MEDS ORDERED: OLANZAPINE 5 MG TABLET PO ONE (17:00)
[2018-12-17 17:08] LABS: CREATININE 1.3 mg/dL (0.6-1.3); POTASSIUM 3.3 mmol/L (3.5-5.1)
[2018-12-17] MEDS ORDERED: OLANZAPINE 5 MG TABLET ONE (17:09)
[2018-12-17 17:14] LABS: BILIRUBIN,DIRECT 0.2 mg/dL (0.0-0.2); BILIRUBIN,TOTAL 1.1 mg/dL (0.2-1.0); TOTAL PROTEIN, SERUM 8.3 g/dL (6.4-8.2)
--- NOTE | 2018-12-17 17:18 | NUR ---
Patient wants narcotic medicine notified.
--- NOTE | 2018-12-17 17:19 | NUR ---
Patient eloped from facility. ER physician notified. Patient was seen walking with steady gait.
== END 2018-12-17 17:25 | disposition left against medical advice (07) ==
LOC: ER 15:23
DX: G89.29 Other chronic pain (principal); R10.84 Generalized abdominal pain; G43.A0 Cyclical vomiting, in migraine, not intractable; R51 Headache; M54.2 Cervicalgia; F17.200 Nicotine dependence, unspecified, uncomplicated; F12.10 Cannabis abuse, uncomplicated; Z79.899 Other long term (current) drug therapy; V43.92XA Unspecified car occupant injured in collision with other type car in traffic accident, initial encounter; Y93.89 Activity, other specified; Y92.410 Unspecified street and highway as the place of occurrence of the external cause; Y99.8 Other external cause status
CPT/HCPCS: 36415; 80048; 80076; 83690; 85025; 96372; 96374; 99283; J1630; J2060; A4663; J7030; J7040

== ENCOUNTER 2019-03-06 00:30 | Inpatient (IN) | payer OTHER ==
[~2019-03-06] VITALS: Ht 182.9 cm; Wt 54.4 kg
--- NOTE | 2019-03-06 00:40 | NUR ---
Patient ambulated with stable gait. Speech is clear, speaks in complete sentences. No neuro deficits. Patient came in for c/o abdominal pain with n/v. Respiratory even and unlabored, no cough no sob. No cardiovascular distress noted.
[2019-03-06] MEDS ORDERED: ONDANSETRON ODT 4 MG TAB.RAPDIS ONE (00:58)
[2019-03-06] MEDS ORDERED: DICYCLOMINE HCL LIQ 10 MG/5 ML UDC ONE (00:59)
[2019-03-06] MEDS ORDERED: PANTOPRAZOLE SODIUM 40 MG TABLET.DR PO ONE ×2 (00:59→01:00)
[2019-03-06] MEDS ORDERED: ONDANSETRON ODT 4 MG TAB.RAPDIS SL ONE (01:00)
[2019-03-06] MEDS ORDERED: DICYCLOMINE HCL LIQ 10 MG/5 ML UDC PO ONE (01:00)
[2019-03-06 01:06] LABS: BASOPHILS % (AUTO) 0.3 % (0.0-2.0); HEMOGLOBIN 18.5 g/dL (12.5-16.3); LYMPHOCYTES # (AUTO) 0.8 K/uL (20.0-40.0); LYMPHOCYTES % (AUTO) 5.1 % (20.5-51.5); MEAN CORPUSCULAR HEMOGLOBIN 31.3 uug (23.8-33.4); MEAN CORPUSCULAR HGB CONC 34 g/dL (32.5-36.3); MEAN CORPUSCULAR VOLUME 91.5 fL (73.0-96.2); MONOCYTES # (AUTO) 1.4 K/uL (2.0-10.0); MONOCYTES % (AUTO) 9.5 % (0.0-11.0); NEUTROPHILS # (AUTO) 12.6 K/uL (1.8-8.9); NEUTROPHILS % (AUTO) 85.1 % (38.5-71.5); PLATELET COUNT (AUTO) 358 K/uL (152-348); WHITE BLOOD COUNT (AUTO) 14.8 K/uL (3.6-10.2)
[2019-03-06] MEDS ORDERED: IV NORMAL SALINE 1000 ML BAG IV ONE ×2 (01:30)
[2019-03-06 01:35] LABS: BILIRUBIN,DIRECT 0.2 mg/dL (0.0-0.2); BILIRUBIN,TOTAL 1.4 mg/dL (0.2-1.0); CREATININE 5.4 mg/dL (0.6-1.3); POTASSIUM 3.5 mmol/L (3.5-5.1); TOTAL PROTEIN, SERUM 10.7 g/dL (6.4-8.2)
--- NOTE | 2019-03-06 01:56 | NUR ---
Pt out of ER for CT.
--- NOTE | 2019-03-06 02:12 | NUR ---
Patient back in room from CT in stable condition.
[2019-03-06] MEDS ORDERED: PANTOPRAZOLE SODIUM IV 80 MG in IV DEXTROSE 5% 100 ML IV ONE ×4 (02:30)
--- NOTE | 2019-03-06 02:32 | NUR ---
SAL CORTÉS paged. Awaiting call back.
[2019-03-06] MEDS ORDERED: MAGNESIUM HYDROXIDE 30 ML LIQUID UDC PO PRN (03:00)
[2019-03-06] MEDS ORDERED: ACETAMINOPHEN 325 MG TABLET PO PRN (03:00)
[2019-03-06] MEDS ORDERED: HYDROCODONE/APAP 5-325MG TABLET PO PRN (03:00)
[2019-03-06] MEDS ORDERED: Z GUARD REMEDY PASTE 57 GM TUBE TOP PRN (03:00)
[2019-03-06] MEDS ORDERED: ONDANSETRON 4 MG/2 ML VIAL IV PRN (03:00)
[2019-03-06] MEDS ORDERED: PANTOPRAZOLE SODIUM 40 MG VIAL ONE ×2 (03:00→03:42)
[2019-03-06] MEDS ORDERED: PANTOPRAZOLE SODIUM IV 80 MG in IV DEXTROSE 5% 500 ML IV ONE (03:45)
--- NOTE | 2019-03-06 04:30 | NUR ---
Received patient from ED via gurney in stable condition, accompanied by Marin, ED RN. Transferred to hospital bed and made comfortable. Patient is alert and oriented x 3. He has an IV access on his right forearm to ongoing Protonix drip at 50mls/hr, infusing well. Patient currently complaining of pain but denies nausea. No skin problems noted. Patient oriented to unit to which he verbalized understanding. Bed in low position, locked, side rails up x 2 for safety, Call light within reach. Will continue to monitor.
--- NOTE | 2019-03-06 04:40 | NUR ---
[facility]
[2019-03-06] MEDS ORDERED: CLONAZEPAM 1 MG TABLET PO PRN (05:00)
--- NOTE | 2019-03-06 05:00 | NUR ---
Patient complaining of severe pain, noted he was given [place] at ED at 0300. Spoke with Dr. Webster if we could give patient any other medication for pain, MD did not order any new medication.
[2019-03-06] MEDS: IV NS 1000 ML 1,000 ML IV SCH ×2 (05:05→11:00)
[2019-03-06 05:38] VITALS: BP 132/87
--- NOTE | 2019-03-06 10:00 | NUR ---
PT. VERY ANXIOUS--AND CONSTANTLY ASKING FOR IV PAIN MEDS. DENIES NAUSEA. STATES WANTS TO EAT AND DRINK. PT. INSTRUCTED RE NPO. 1100 PT. DISCOVERED SEVERAL TIMES TRYING TO SNEAK FOOD AND DRINK. RE-INSTRUCTED. JESSICA MCKEON SHEET HEATER HELPER IN TO SEE PT. AND REVIEW PLAN OF CARE.
[2019-03-06] MEDS ORDERED: HYDROCODONE/APAP 10-325 MG TABLET PO PRN (10:30)
[2019-03-06 11:46] VITALS: BP 125/72
--- NOTE | 2019-03-06 12:00 | NUR ---
DR. HANNON IN TO SEE PT. AND TO DISCUSS PLAN OF CARE. URINE SPEC. SENT TO LAB PT. REMAINS NON-COMPLIANT WITHINSTRUCTIONS.. BELLIGERENT AT TIMES. POUNDING HIS FISTS ON THE FURNITURE AT TIMES AND ON HIMSELF AT TIMES. REQUESTING IV MEDS.
--- NOTE | 2019-03-06 13:00 | NUR ---
MEDICATED EARLIER FOR C/O ANXIETY WITH GOOD RELIEF---PT. SLEPT FOR APPROX. 1 HR. 1300 PT. CALLING Q 3-4 MIN FOR STRONGER PAIN MEDS. PT DISCONNECTED HIS IV AND WAS FOUND IN THE SHOWER LAYING ON THE FLOOR WITH HIS LEGS RESTING VERTICALLY AGAINST THE WALL. PT. INSTRUCTED TO STAND WHILE IN THE SHOWER AND THAT HE CANNOTJUST LAY ON THE FLOOR---PT. BECAME VERY ANGRY KICKING HIS HEELS AGAINST THE WALL AND REFUSED TO STAND. SECURITY WAS CALLED AND PERSUADED THE PT TO FOLLOW THESE SIMPLE INSTRUCTIONS, PT. STILL NEGOTIATING APPROPRIATE BEHAVIOR FOR IV MEDS. HE IS ALSO THREATENING TO LEAVE AMA. JESSICA MCKEON SUPERVISOR COMPOUNDING AND FINISHING INFORMED OF ALL OF THE ABOVE
--- NOTE | 2019-03-06 13:20 | NUR ---
PT. STATES HE WILL LEAVE AMA. IV D/C'D. PT. INSTRUCTED OF THE HEALTH RISKS--STATES HE DOES NOT CARE---HE WILL 'GO TO ANOTHER HOSP. THAT WILL GIVE HIN MORPHINE OR SOME OTHER IV NARCOTIC. JESSICA FLETCHER. DR. HANNON'S OFFICE NOTIFIED DR. ARANA'S OFFICE NOTIFIED OF AMA DEPARTURE. PT. ESCORTED TO THE FRONT DOOR TO MEET HIS UBER RIDE BY SECURITY AND RN.
[2019-03-06 14:28] LABS: *BILIRUBIN,URIN NEGATIVE (NEGATIVE); *BLOOD, URINE 1+ (NEGATIVE); *CLARITY,URINE CLEAR (CLEAR); *COLOR,URINE YELLOW (YELLOW); *KETONES,URINE 1+ (NEGATIVE); *UROBILINOGEN,URINE 0.2 E.U./dl (NORMAL); LEUKOCYTE ESTERASE ,URINE 1+ (NEGATIVE); NITRITE, URINE NEGATIVE (NEGATIVE); UGLUCOSE NEGATIVE (NEGATIVE)
[2019-03-06 14:30] LABS: *CREATININE,URINE 91.8 mg/dL (30-125); *URINE TOTAL PROTEIN RANDOM 36.6 mg/dL (<150/24HR)
[2019-03-06 14:41] LABS: BACTERIA,URINE NONE SEEN /HPF (NONE SEEN); RBC,URINE 0-3 /HPF (0-3); SQUAMOUS EPITHELIAL CELL,UR FEW /HPF (NONE SEEN)
[2019-03-06 15:29] LABS: *AMPHETAMINE, URINE NEGATIVE (NEGATIVE); *BARBITURATE, URINE NEGATIVE (NEGATIVE); *CANNABINOID, URINE POSITIVE (NEGATIVE); *COCCAINE, URINE NEGATIVE (NEGATIVE); *OPIATE, URINE POSITIVE (NEGATIVE); *PHENCYCLIDINE SCREEN,URINE NEGATIVE (NEGATIVE)
--- NOTE | 2019-03-06 16:18 | NUR ---
Social Work Consult: Game Bird Farmer received consult to evaluate drug abuse. Patient is a 28 year old male with admit dx Renal Failure. Game Bird Farmer met with patient at bedside. Patient was alert and oriented x 4. Patient made report of pain concern and his current pain medication not working - "Wildwood is not working, I usually get morphine or dilaudin". steam trap worker provide reassurance and mentioned the above to bedside RN. Patient reported hx of Bipolar Disorder, depression and anxiety. Per patient, he was diagnosed with Bipolar Disorder 2 years ago and takes Klonopin 4mg/day. Patient receives care at [facility]. Patient denied any hx of prescription, drug, or alcohol abuse. Patient accepted substance abuse resources offered by Game Bird [employer] including [facility] [[address] [place] [address]; [phone]], [facility] [[address] [place] [address]; [phone]], [facility] [[address], [facility] [place] [address]; ], and Substance Abuse and Mental Health Services Administration (SAMHSA) National Helpline [5-793-464-KJYG (7003)]. Game Bird Farmer will continue to remain available for patient should any needs arise.
[2019-03-07 13:06] LABS: HEPATITIS A AB, IgM Negative (Negative); HEPATITIS A AB, TOTAL Negative (Negative); HEPATITIS B SURFACE AB Reactive (.); HEPATITIS B SURFACE AG Negative (Negative)
== END 2019-03-06 15:27 | disposition left against medical advice (07) | DRG 253 ==
LOC: ER 00:32 → MEDSURG3 04:18
PROVIDERS: ADMIT Family Medicine; ATTEND Nurse Practitioner Acute Care
DX: K92.2 Gastrointestinal hemorrhage, unspecified (principal); N17.0 Acute kidney failure with tubular necrosis; I45.81 Long QT syndrome; D75.1 Secondary polycythemia; E86.0 Dehydration; R74.0 Nonspecific elevation of levels of transaminase and lactic acid dehydrogenase [LDH]; M48.00 Spinal stenosis, site unspecified; F31.9 Bipolar disorder, unspecified; F41.9 Anxiety disorder, unspecified; D72.829 Elevated white blood cell count, unspecified; F12.90 Cannabis use, unspecified, uncomplicated
CPT/HCPCS: 36415; 71045; 76700; 80307; 83690; 84156; 84300; 85025; 85610; 86704; 86705; 86706; 86708; 86709; 86803; 86850; 86900; 86901; 87086; 87340; 93005; C9113; G0378; J7030; J7060; Q0162

== ENCOUNTER 2019-03-15 08:37 | Inpatient (IN) | payer OTHER ==
[~2019-03-15] VITALS: Ht 180.3 cm; Wt 59.0 kg
[~2019-03-15 08:37] MED LIST changes: -BUSP10TA3 PO; -METO-295 PO; -ONDA4TAB11 PO; -PANT40TA2 PO
--- NOTE | 2019-03-15 08:54 | NUR ---
Dr Mayo is@bedside evaluating the patient.
[2019-03-15] MEDS: IV NORMAL SALINE 1000 ML BAG IV ONE ×2 (08:59→09:30)
[2019-03-15] MEDS ORDERED: ONDANSETRON 4 MG/2 ML VIAL IV ONE (09:15)
--- NOTE | 2019-03-15 09:16 | NUR ---
* IV line insertion unsuccesful, notified.
--- NOTE | 2019-03-15 09:18 | NUR ---
Patient wants MD Arnav notified.
[2019-03-15] MEDS ORDERED: ONDANSETRON 4 MG/2 ML VIAL ONE (09:21)
[2019-03-15 09:27] LABS: ETHANOL < 3 MG/DL (0-0)
[2019-03-15 09:28] LABS: BASOPHILS % (AUTO) 0.3 % (0.0-2.0); EOSINOPHILS % (AUTO) 0.2 % (0.0-7.0); HEMATOCRIT 52.6 % (36.7-47.1); HEMOGLOBIN 18.5 g/dL (12.5-16.3); LYMPHOCYTES # (AUTO) 1.3 K/uL (20.0-40.0); LYMPHOCYTES % (AUTO) 8.6 % (20.5-51.5); MEAN CORPUSCULAR HEMOGLOBIN 31.4 uug (23.8-33.4); MEAN CORPUSCULAR HGB CONC 35 g/dL (32.5-36.3); MEAN CORPUSCULAR VOLUME 89.6 fL (73.0-96.2); MONOCYTES % (AUTO) 12.9 % (0.0-11.0); NEUTROPHILS # (AUTO) 12.2 K/uL (1.8-8.9); PLATELET COUNT (AUTO) 371 K/uL (152-348); RED BLOOD CELL COUNT(AUTO) 5.88 MIL/uL (4.06-5.63); WHITE BLOOD COUNT (AUTO) 15.6 K/uL (3.6-10.2)
[2019-03-15 09:30] LABS: *AMPHETAMINE, URINE NEGATIVE (NEGATIVE); *BARBITURATE, URINE NEGATIVE (NEGATIVE); *CANNABINOID, URINE POSITIVE (NEGATIVE); *COCCAINE, URINE NEGATIVE (NEGATIVE); *OPIATE, URINE POSITIVE (NEGATIVE); *PHENCYCLIDINE SCREEN,URINE NEGATIVE (NEGATIVE); ALANINE AMINOTRANSFERASE 36 U/L (16-63); ALKALINE PHOSPHATASE 101 U/L (50-136); ASPARTATE AMINOTRANSFERASE 25 U/L (15-37); BILIRUBIN,DIRECT 0.2 mg/dL (0.0-0.2); CREATININE 2.1 mg/dL (0.6-1.3); GLUCOSE 154 mg/dL (74-106); LIPASE 118 U/L (73-393); TOTAL PROTEIN, SERUM 9.7 g/dL (6.4-8.2); UREA NITROGEN, BLOOD 34 mg/dL (7-18)
[2019-03-15] MEDS ORDERED: ONDANSETRON ODT 4 MG TAB.RAPDIS SL ONE (09:30)
[2019-03-15] MEDS ORDERED: ONDANSETRON ODT 4 MG TAB.RAPDIS ONE (09:32)
[2019-03-15 09:36] LABS: CARBON DIOXIDE 49 mmol/L (21-32); CHLORIDE 78 mmol/L (98-107); POTASSIUM 2.2 mmol/L (3.5-5.1)
--- NOTE | 2019-03-15 09:51 | NUR ---
is attempting peripheral IV line@this time.
--- NOTE | 2019-03-15 09:55 | NUR ---
SUCCESSFUL IV INSERTION PER MD ON NECK (RIGHT LATERAL) 1 ATTEMPT. INTACT AND INFUSING WELL. KEPT WARM DRY AND COMFORTABLE. PT DENIES PAIN, NOT IN DISTRESS.
[2019-03-15] MEDS ORDERED: POTASSIUM CHLORIDE 50 ML IV SCH (10:00)
[2019-03-15] MEDS ORDERED: POTASSIUM CHLORIDE 50 ML ONE (10:03)
--- NOTE | 2019-03-15 10:10 | NUR ---
Normal saline 1000ml IV bolus started@ R neck g 18 IV line. CHANCE Baugh is now at bedside evaluating this patient.
[2019-03-15] MEDS ORDERED: BUSP5TAB3 PO (10:28)
[2019-03-15] MEDS ORDERED: CITA10TA9 PO (10:28)
[2019-03-15] MEDS ORDERED: MAGNESIUM HYDROXIDE 30 ML LIQUID UDC PO PRN (10:30)
[2019-03-15] MEDS ORDERED: ONDANSETRON 4 MG/2 ML VIAL IV PRN (10:30)
[2019-03-15] MEDS ORDERED: ACETAMINOPHEN 325 MG TABLET PO PRN (10:30)
--- NOTE | 2019-03-15 11:09 | NUR ---
IV bolus & IV potassium are still infusing, endorsed to telemetry nurse for END times.
[2019-03-15 11:24] VITALS: BP 119/86
[2019-03-15] MEDS: CLONAZEPAM 1 MG TABLET PO PRN ×2 (11:40→18:15)
[2019-03-15] MEDS: CITALOPRAM 10 MG TABLET PO SCH (11:40)
[2019-03-15] MEDS: IV NS 1000 ML 1,000 ML IV PRN (11:41)
[2019-03-15] MEDS: HYDROMORPHONE 1 MG/1 ML DISP.SYRIN IV PRN ×2 (13:10→18:03)
[2019-03-15] MEDS ORDERED: CLON2TAB11 PO (14:19)
[2019-03-15 15:26] VITALS: BP 125/75
[2019-03-15 16:15] LABS: CREATININE 1.5 mg/dL (0.6-1.3)
[2019-03-15 16:26] LABS: POTASSIUM 2.4 mmol/L (3.5-5.1)
[2019-03-15] MEDS: busPIRone 5 MG TABLET PO SCH (17:04)
[2019-03-15] MEDS ORDERED: POTASSIUM CHLORIDE 20 MEQ TAB.PRT.SR PO STA (19:00)
--- NOTE | 2019-03-15 19:29 | NUR ---
PATIENT AO 3, NO DISTRESS, PAIN ABD DILAUDID HELPS, NO COMPLAINS DENIES SI AND DS SAFETY MAINTAINED
--- NOTE | 2019-03-15 19:30 | NUR ---
patient received lying in bed. a/ox4. 1:1 sitter for safety and suicidal ideation. safety and comfort measures provided. bed in lowest position, side rails up x2, call light within reach. will continue care.
[2019-03-15 19:35] VITALS: BP 116/72
[2019-03-15] MEDS ORDERED: METOCLOPRAMIDE HCL 10 MG/2 ML VIAL IV SCH (22:00)
[2019-03-15] MEDS: METOCLOPRAMIDE HCL 10 MG/2 ML VIAL IV SCH (22:15)
[2019-03-15 23:34] VITALS: BP 120/74
[2019-03-16] MEDS: HYDROMORPHONE 1 MG/1 ML DISP.SYRIN IV PRN ×4 (00:15→18:14)
[2019-03-16] MEDS: ZOLPIDEM 5 MG TABLET PO PRN ×2 (01:39→21:58)
[2019-03-16] MEDS: IV NS 1000 ML 1,000 ML IV PRN ×3 (02:51→20:15)
--- NOTE | 2019-03-16 03:00 | NUR ---
patient c/o of pain and dilaudid not effective. reporting pain of 7. educated patient on deep breathing exercises and non pharmacological methods. contacted [facility] pest control technician Kala CORTÉS. medication frequency or medication dose increased denied by MD. no signs of acute distress at this time. will continue to monitor patient.
[2019-03-16 05:31] VITALS: BP 118/85
[2019-03-16] MEDS: METOCLOPRAMIDE HCL 10 MG/2 ML VIAL IV SCH ×3 (06:13→21:31)
[2019-03-16] MEDS: PANTOPRAZOLE SODIUM 40 MG TABLET.DR PO SCH (06:13)
[2019-03-16 06:21] LABS: BASOPHILS # (AUTO) 0.1 K/uL (0.0-8.0); BASOPHILS % (AUTO) 1.1 % (0.0-2.0); EOSINOPHILS # (AUTO) 0.1 K/uL (0.0-0.7); EOSINOPHILS % (AUTO) 1.5 % (0.0-7.0); HEMATOCRIT 41.2 % (36.7-47.1); HEMOGLOBIN 14.1 g/dL (12.5-16.3); LYMPHOCYTES # (AUTO) 2.3 K/uL (20.0-40.0); LYMPHOCYTES % (AUTO) 35.1 % (20.5-51.5); MEAN CORPUSCULAR HEMOGLOBIN 31.2 uug (23.8-33.4); MEAN CORPUSCULAR HGB CONC 34 g/dL (32.5-36.3); MEAN CORPUSCULAR VOLUME 91.2 fL (73.0-96.2); MONOCYTES % (AUTO) 15.2 % (0.0-11.0); NEUTROPHILS # (AUTO) 3.1 K/uL (1.8-8.9); NEUTROPHILS % (AUTO) 47.1 % (38.5-71.5); PLATELET COUNT (AUTO) 265 K/uL (152-348); RED BLOOD CELL COUNT(AUTO) 4.51 MIL/uL (4.06-5.63); WHITE BLOOD COUNT (AUTO) 6.7 K/uL (3.6-10.2)
--- NOTE | 2019-03-16 06:22 | NUR ---
c/o of pain. administered dilaudid. patient tolerated well.
[2019-03-16 06:45] LABS: CREATININE 1.5 mg/dL (0.6-1.3); MAGNESIUM 1.7 mg/dL (1.8-2.4); PHOSPHOROUS 2.5 mg/dL (2.5-4.9)
[2019-03-16 07:07] LABS: POTASSIUM 2.5 mmol/L (3.5-5.1)
--- NOTE | 2019-03-16 07:25 | NUR ---
RECEIVED PATIENT IN BED RESTING, PATIENT ALERT AND ORIENTED X4, NO DISTRESS NOTED.PATIENT REPORTING PAIN WILL FOLLOW WITH ORDERS. BED IN LOWEST POSITION, SIDE RAILS UP X2, CALL LIGHT WITHIN REACH. WILL CONTINUE TO MONITOR.
--- NOTE | 2019-03-16 07:30 | NUR ---
patient slept intermittently after administration of ambien. 1:1 sitter at bedside. no signs of acute distress. provided safety and comfort measures. iv intact and patent. all medications administered and tolerated well. critical lab value received by lab. attempted to contact [facility] forestry consultant dr. Rowland. will endorse to morning nurse to f/u on critical lab value for K and CO2. documented in [facility] for critical lab value.
[2019-03-16 07:31] LABS: LYMPHOCYTES % (MANUAL) 34 % (20-40); MONOCYTES % (MANUAL) 16 % (2-10); NEUTROPHILS % (MANUAL) 50 % (42-75)
[2019-03-16 07:40] VITALS: BP 119/83
[2019-03-16] MEDS ORDERED: POTASSIUM CHLORIDE 20 MEQ TAB.PRT.SR PO ONE (07:45)
--- NOTE | 2019-03-16 07:45 | NUR ---
REPORTED CRITICAL LAB VALUE K:2.5, CONTACTED DR LUGO. ORDERED 80 MEQ PO IN DIVIDED DOSES.
[2019-03-16] MEDS: busPIRone 5 MG TABLET PO SCH ×2 (08:06→17:34)
[2019-03-16] MEDS: CITALOPRAM 10 MG TABLET PO SCH (08:06)
[2019-03-16] MEDS: CLONAZEPAM 1 MG TABLET PO PRN ×2 (08:06→18:28)
[2019-03-16] MEDS: POTASSIUM CHLORIDE 20 MEQ TAB.PRT.SR PO SCH ×4 (08:55→21:34)
[2019-03-16] MEDS ORDERED: DOCUSATE SODIUM 100 MG CAPSULE PO SCH (09:00)
[2019-03-16] MEDS ORDERED: MAGNESIUM SULFATE/D5W 100 ML IV SCH (10:00)
[2019-03-16] MEDS ORDERED: NICOTINE 21 MG/24HR PATCH TD SCH (10:00)
[2019-03-16 18:07] LABS: CREATININE 1.4 mg/dL (0.6-1.3)
--- NOTE | 2019-03-16 18:39 | NUR ---
PATIENT RESTED INTERMITTENTLY THROUGHOUT SHIFT. POTASSIUM REPLACE FOR CRITICAL LAB OF POTASSIUM. PROVIDED PAIN MANAGEMENT WITH DILAUDID, PAIN IN ABDOMEN. PATIENT ALERT AND ORIENTED THROUGHOUT SHIFT. BED IN LOWEST POSITION, SIDE RAILS UP X2, CALL LIGHT WITHIN REACH.
--- NOTE | 2019-03-16 19:30 | NUR ---
awake,family at bedside, no complaints. resting comfortably.in no acute distress. telemetry sinus rhythm.no nausea and vomiting.
[2019-03-16 20:00] VITALS: BP 111/69
[2019-03-17 00:03] VITALS: BP 93/54
[2019-03-17] MEDS: HYDROMORPHONE 1 MG/1 ML DISP.SYRIN IV PRN ×3 (00:15→06:16)
[2019-03-17] MEDS: IV NS 1000 ML 1,000 ML IV PRN (03:04)
[2019-03-17 04:00] VITALS: BP 98/44
[2019-03-17] MEDS: PANTOPRAZOLE SODIUM 40 MG TABLET.DR PO SCH (06:16)
[2019-03-17] MEDS: METOCLOPRAMIDE HCL 10 MG/2 ML VIAL IV SCH (06:17)
[2019-03-17 06:36] LABS: CREATININE 1.1 mg/dL (0.6-1.3); MAGNESIUM 1.5 mg/dL (1.8-2.4); POTASSIUM 3.5 mmol/L (3.5-5.1)
[2019-03-17 06:57] LABS: BASOPHILS # (AUTO) 0.1 K/uL (0.0-8.0); EOSINOPHILS # (AUTO) 0.1 K/uL (0.0-0.7); MONOCYTES # (AUTO) 0.8 K/uL (2.0-10.0); NEUTROPHILS # (AUTO) 3.2 K/uL (1.8-8.9)
--- NOTE | 2019-03-17 07:10 | NUR ---
RECEIVED PATIENT IN SITTING IN BED, AWAITING FOR DISCHARGE, NO DISTRESS NOTED.
[2019-03-17 07:15] LABS: BASOPHILS % (AUTO) 1.2 % (0.0-2.0); EOSINOPHILS % (AUTO) 1.8 % (0.0-7.0); LYMPHOCYTES # (AUTO) 2.1 K/uL (20.0-40.0); LYMPHOCYTES % (AUTO) 33.9 % (20.5-51.5); MEAN CORPUSCULAR HEMOGLOBIN 31.2 uug (23.8-33.4); MEAN CORPUSCULAR HGB CONC 34 g/dL (32.5-36.3); MEAN CORPUSCULAR VOLUME 92.7 fL (73.0-96.2); MONOCYTES % (AUTO) 12.8 % (0.0-11.0); NEUTROPHILS % (AUTO) 50.3 % (38.5-71.5); PLATELET COUNT (AUTO) 213 K/uL (152-348); RED BLOOD CELL COUNT(AUTO) 3.93 MIL/uL (4.06-5.63); WHITE BLOOD COUNT (AUTO) 6.3 K/uL (3.6-10.2)
[2019-03-17 07:17] LABS: HEMATOCRIT 36.4 % (36.7-47.1); HEMOGLOBIN 12.2 g/dL (12.5-16.3)
--- NOTE | 2019-03-17 07:25 | NUR ---
pt was discharged, by CHANCE brown.took shower and removed his jugular iv,pressure dressings applied.waiting for discharged papers,prescription given to patient.
== END 2019-03-17 08:10 | disposition home or self-care (01) | DRG 249 ==
LOC: ER 08:37 → TELE3 10:48
PROVIDERS: ADMIT Nurse Practitioner Acute Care; ATTEND Nurse Practitioner Acute Care
DX: R11.2 Nausea with vomiting, unspecified (principal); N17.0 Acute kidney failure with tubular necrosis; E44.0 Moderate protein-calorie malnutrition; E87.3 Alkalosis; K92.0 Hematemesis; E83.52 Hypercalcemia; D75.1 Secondary polycythemia; R17 Unspecified jaundice; T40.7X5A Adverse effect of cannabis (derivatives), initial encounter; E87.8 Other disorders of electrolyte and fluid balance, not elsewhere classified; E87.6 Hypokalemia; E86.0 Dehydration; Z68.1 Body mass index [BMI] 19.9 or less, adult; M48.00 Spinal stenosis, site unspecified; G89.29 Other chronic pain; F41.9 Anxiety disorder, unspecified; F31.30 Bipolar disorder, current episode depressed, mild or moderate severity, unspecified; T47.1X5A Adverse effect of other antacids and anti-gastric-secretion drugs, initial encounter; Y92.019 Unspecified place in single-family (private) house as the place of occurrence of the external cause; D72.829 Elevated white blood cell count, unspecified; F12.20 Cannabis dependence, uncomplicated; F17.210 Nicotine dependence, cigarettes, uncomplicated
CPT/HCPCS: 36415; 71045; 80307; 83690; 83735; 84100; 85025; 93005; A4663; G0378; G0480; J1170; J2405; J2765; J3475; J3480; J7030; Q0162

== ENCOUNTER 2019-03-17 15:27 | Emergency (ER) | payer OTHER ==
[~2019-03-17] VITALS: Ht 180.3 cm; Wt 59.0 kg
[~2019-03-17 15:27] MED LIST changes: +BUSP5TAB3 PO; +CITA10TA9 PO
--- NOTE | 2019-03-17 15:50 | NUR ---
Patient walked in to ER c/o N/V. Patient was discharged from the medical/surgical floor this am. Call was placed to [facility] hospitalist, Amauri Ledbetter (CHANCE) came to the bedside and collaborated with FERNANDO.
--- NOTE | 2019-03-17 16:22 | NUR ---
Patient discharged to home in stable conditon. Written and verbal after care instructions given. Patient verbalizes understanding of instructions.pt walks in steady gait.
[2019-03-24] MEDS ORDERED: CLON2TAB PO (10:16)
[2019-03-24] MEDS ORDERED: FAMO20TA41 PO (10:16)
[2019-03-24] MEDS ORDERED: HYDR-3326 PO (10:16)
[2019-03-24] MEDS ORDERED: ONDA4TAB5 PO (10:16)
== END 2019-03-17 16:24 | disposition home or self-care (01) ==
LOC: ER 15:27
DX: R10.13 Epigastric pain (principal); R11.2 Nausea with vomiting, unspecified; F17.200 Nicotine dependence, unspecified, uncomplicated; F12.10 Cannabis abuse, uncomplicated; Z79.899 Other long term (current) drug therapy

== ENCOUNTER 2019-03-22 13:36 | Inpatient (IN) | payer OTHER ==
[~2019-03-22] VITALS: Ht 180.3 cm; Wt 57.7 kg
[2019-03-22] MEDS ORDERED: METO-295 PO (13:54)
[2019-03-22] MEDS ORDERED: ONDA4TAB5 PO (13:55)
[2019-03-22] MEDS ORDERED: ONDANSETRON 4 MG/2 ML VIAL IV ONE ×2 (14:15→15:30)
[2019-03-22] MEDS ORDERED: IV NORMAL SALINE 1000 ML BAG IV ONE (14:15)
[2019-03-22] MEDS ORDERED: ONDANSETRON 4 MG/2 ML VIAL ONE ×2 (14:23→15:24)
[2019-03-22 14:34] LABS: BASOPHILS # (AUTO) 0.1 K/uL (0.0-8.0); EOSINOPHILS % (AUTO) 0.3 % (0.0-7.0); HEMATOCRIT 41.3 % (36.7-47.1); HEMOGLOBIN 13.9 g/dL (12.5-16.3); LYMPHOCYTES # (AUTO) 2.2 K/uL (20.0-40.0); MEAN CORPUSCULAR HEMOGLOBIN 31.2 uug (23.8-33.4); MEAN CORPUSCULAR HGB CONC 34 g/dL (32.5-36.3); MEAN CORPUSCULAR VOLUME 92.8 fL (73.0-96.2); MONOCYTES # (AUTO) 0.5 K/uL (2.0-10.0); MONOCYTES % (AUTO) 7.2 % (0.0-11.0); NEUTROPHILS # (AUTO) 4.6 K/uL (1.8-8.9); NEUTROPHILS % (AUTO) 61.5 % (38.5-71.5); PLATELET COUNT (AUTO) 272 K/uL (152-348); RED BLOOD CELL COUNT(AUTO) 4.45 MIL/uL (4.06-5.63); WHITE BLOOD COUNT (AUTO) 7.5 K/uL (3.6-10.2)
--- NOTE | 2019-03-22 14:41 | NUR ---
Patient is seen playing video games on his own laptop. Girlfriend is at bedside. Patient also said that he is anxious & that he wants MD chris notified.
[2019-03-22 14:44] LABS: CREATININE 1.3 mg/dL (0.6-1.3); POTASSIUM 3.2 mmol/L (3.5-5.1)
[2019-03-22] MEDS ORDERED: LORAZEPAM 2 MG/1 ML VIAL IV ONE (14:45)
[2019-03-22 14:50] LABS: BILIRUBIN,DIRECT 0.2 mg/dL (0.0-0.2); BILIRUBIN,TOTAL 0.8 mg/dL (0.2-1.0); TOTAL PROTEIN, SERUM 7.8 g/dL (6.4-8.2)
[2019-03-22] MEDS ORDERED: LORAZEPAM 2 MG/1 ML VIAL ONE (14:51)
--- NOTE | 2019-03-22 15:23 | NUR ---
Patient wants MD Jaky notified.
--- NOTE | 2019-03-22 15:34 | NUR ---
No actual vomiting seen while in ER, no acute change in condition seen.
--- NOTE | 2019-03-22 15:48 | NUR ---
CHANCE Grimes is here in our ER & evaluating the patient.
[2019-03-22] MEDS ORDERED: ACETAMINOPHEN 325 MG TABLET PO PRN (16:15)
[2019-03-22] MEDS ORDERED: ZOLPIDEM 5 MG TABLET PO PRN (16:15)
[2019-03-22] MEDS ORDERED: METOCLOPRAMIDE HCL 10 MG/2 ML VIAL IV PRN (16:15)
[2019-03-22] MEDS ORDERED: HYDROCODONE/APAP 5-325MG TABLET PO PRN (16:15)
[2019-03-22] MEDS ORDERED: MAGNESIUM HYDROXIDE 30 ML LIQUID UDC PO PRN (16:15)
--- NOTE | 2019-03-22 16:27 | NUR ---
Admitted 28 year old patient with dx of CYCLICAL VOMITING SYNDROME. No complaints of nausea at this time. No emesis present. AAOx4. Ambulatory. IV on right wrist intact and patent. Routine admission assessments done. Awaiting medications to be verified. No acute distress noted. Safety and comfort provided. All needs met. Call light within reach.
[2019-03-22 16:37] VITALS: BP 115/67
[2019-03-22] MEDS: MORPHINE SULFATE 2 MG/1 ML DISP.SYRIN IV PRN ×2 (16:56→21:12)
[2019-03-22] MEDS: IV NS 1000 ML 1,000 ML IV PRN (16:56)
[2019-03-22] MEDS: busPIRone 5 MG TABLET PO SCH (17:15)
--- NOTE | 2019-03-22 19:50 | NUR ---
PATIENT ALERT ORIENTED, NO SOB NO CHEST PAIN. CONT ON PAIN MANAGEMENT. PATIENT VOIDING FREELY WILL COLLECT URINE ORDERED. CALL LIGHT WITHIN REACH.
[2019-03-22 20:00] VITALS: BP 107/72
[2019-03-22] MEDS: FAMOTIDINE 20 MG TABLET PO SCH (20:25)
[2019-03-22] MEDS: CLONAZEPAM 1 MG TABLET PO PRN (21:05)
[2019-03-22 23:43] LABS: *BLOOD, URINE NEGATIVE (NEGATIVE); *COLOR,URINE DARK YELLOW (YELLOW); *KETONES,URINE 1+ (NEGATIVE); *UROBILINOGEN,URINE 0.2 E.U./dl (NORMAL); LEUKOCYTE ESTERASE ,URINE NEGATIVE (NEGATIVE); NITRITE, URINE NEGATIVE (NEGATIVE); PH,URINE 5.5 (5.0-8.0); UGLUCOSE TRACE (NEGATIVE)
[2019-03-22 23:49] LABS: *BILIRUBIN,URIN 1+ (NEGATIVE); *CLARITY,URINE HAZY (CLEAR)
[2019-03-22 23:55] LABS: *AMPHETAMINE, URINE NEGATIVE (NEGATIVE); *BARBITURATE, URINE NEGATIVE (NEGATIVE); *CANNABINOID, URINE POSITIVE (NEGATIVE); *COCCAINE, URINE NEGATIVE (NEGATIVE); *OPIATE, URINE POSITIVE (NEGATIVE); *PHENCYCLIDINE SCREEN,URINE NEGATIVE (NEGATIVE)
[2019-03-23 00:07] LABS: WBC,URINE 0-3 /HPF (0-3)
[2019-03-23 00:08] LABS: BACTERIA,URINE NONE SEEN /HPF (NONE SEEN); CALCIUM OXALATE CRYSTALS,UR MODERATE /HPF (NONE SEEN); MUCUS,URINE MANY /LPF (0-FEW); SQUAMOUS EPITHELIAL CELL,UR FEW /HPF (NONE SEEN)
[2019-03-23] MEDS: MORPHINE SULFATE 2 MG/1 ML DISP.SYRIN IV PRN ×6 (01:55→22:47)
[2019-03-23] MEDS: ONDANSETRON 4 MG/2 ML VIAL IV PRN ×3 (02:12→18:46)
[2019-03-23 05:11] VITALS: BP 85/43
[2019-03-23 05:42] VITALS: BP 89/65
[2019-03-23 06:08] VITALS: BP 101/65
--- NOTE | 2019-03-23 06:28 | NUR ---
PATIENT ALERT ORIENTED, NO SOB NO CHEST PAIN. CONT ON PAIN MANAGEMENT OF ABDOMEN. PATIENT HAS EPISODE OF LOW BLOOD PRESSURE, EXPLAINED TO PATIENT PAIN MANAGEMENT NEEDS TO BE HELD IF BP IS LOW. CONT TO RECHECK BP, BP BECAME WNL, PAIN MEDICATION WAS GIVEN. CALL LIGHT DANIA ARELLANO.
[2019-03-23 06:38] LABS: BASOPHILS % (AUTO) 0.9 % (0.0-2.0); EOSINOPHILS # (AUTO) 0.1 K/uL (0.0-0.7); EOSINOPHILS % (AUTO) 1.3 % (0.0-7.0); HEMATOCRIT 36.5 % (36.7-47.1); HEMOGLOBIN 12.3 g/dL (12.5-16.3); LYMPHOCYTES # (AUTO) 3.1 K/uL (20.0-40.0); LYMPHOCYTES % (AUTO) 56.3 % (20.5-51.5); MEAN CORPUSCULAR HEMOGLOBIN 31.5 uug (23.8-33.4); MEAN CORPUSCULAR HGB CONC 34 g/dL (32.5-36.3); MEAN CORPUSCULAR VOLUME 93.5 fL (73.0-96.2); MONOCYTES # (AUTO) 0.4 K/uL (2.0-10.0); MONOCYTES % (AUTO) 7.4 % (0.0-11.0); NEUTROPHILS # (AUTO) 1.9 K/uL (1.8-8.9); NEUTROPHILS % (AUTO) 34.1 % (38.5-71.5); PLATELET COUNT (AUTO) 233 K/uL (152-348); RED BLOOD CELL COUNT(AUTO) 3.91 MIL/uL (4.06-5.63); WHITE BLOOD COUNT (AUTO) 5.6 K/uL (3.6-10.2)
[2019-03-23 06:58] LABS: BILIRUBIN,TOTAL 0.8 mg/dL (0.2-1.0); CREATININE 1.2 mg/dL (0.6-1.3); MAGNESIUM 1.6 mg/dL (1.8-2.4); PHOSPHOROUS 3.7 mg/dL (2.5-4.9); POTASSIUM 3.4 mmol/L (3.5-5.1); TOTAL PROTEIN, SERUM 6.3 g/dL (6.4-8.2)
--- NOTE | 2019-03-23 07:20 | NUR ---
Received patient asleep in bed. No acute distress noted. NS infusing at 100mls/hr. No SOB. Will continue to monitor throughout shift. Safety measures implemented. Comfort provided. Will continue to monitor.
[2019-03-23] MEDS: busPIRone 5 MG TABLET PO SCH ×2 (08:21→17:40)
[2019-03-23] MEDS: NICOTINE 14 MG/24HR PATCH TD SCH (08:21)
[2019-03-23] MEDS: FAMOTIDINE 20 MG TABLET PO SCH ×2 (08:47→20:26)
[2019-03-23] MEDS: CLONAZEPAM 1 MG TABLET PO PRN ×2 (08:48→20:26)
--- NOTE | 2019-03-23 08:50 | NUR ---
Made an error when removing ordered 2mg Klonopin PO BID PRN from [facility]. Entered I wasted 1mg when ordered dose was 2mg. Administered ordered 2mg Klonopin to patient.
[2019-03-23] MEDS ORDERED: CITALOPRAM 10 MG TABLET PO SCH (09:00)
[2019-03-23] MEDS ORDERED: POTASSIUM CHLORIDE 20 MEQ TAB.PRT.SR PO ONE (09:15)
[2019-03-23 11:19] VITALS: BP 111/74
[2019-03-23] MEDS: MAGNESIUM SULFATE/D5W 100 ML IV SCH ×2 (12:15→14:16)
[2019-03-23] MEDS: IV NS 1000 ML 1,000 ML IV PRN ×2 (12:57→22:30)
[2019-03-23 15:26] VITALS: BP 102/46
--- NOTE | 2019-03-23 18:09 | NUR ---
Patient compliant with care throughout shift. Received PRN Morphine for complaints of abdominal pain 06/06. Diet advanced as tolerated. Some nausea occurred after lunch. PRN Zofran administered. Safety and comfort provided at all times. Will endorse to incoming shift accordingly.
[2019-03-23 20:21] VITALS: BP 96/59
--- NOTE | 2019-03-23 20:37 | NUR ---
PATIENT ALERT ORIENTED NO SOB NO CHEST PAIN. PATIENT IN BED USING HIS LAPTOP RELAX NO S/S OF NAUSEA NO VOMITING NOTED, CONT ON PAIN MANAGEMENT. CONT TO MONITOR.
--- NOTE | 2019-03-23 20:38 | NUR ---
PATIENT TOLERATE CURRENT DIET.
[2019-03-24] MEDS: MORPHINE SULFATE 2 MG/1 ML DISP.SYRIN IV PRN ×3 (02:38→09:58)
[2019-03-24 06:29] VITALS: BP 101/63
[2019-03-24 06:46] LABS: BASOPHILS # (AUTO) 0.1 K/uL (0.0-8.0); BASOPHILS % (AUTO) 1.1 % (0.0-2.0); EOSINOPHILS # (AUTO) 0.1 K/uL (0.0-0.7); EOSINOPHILS % (AUTO) 1.7 % (0.0-7.0); HEMATOCRIT 34.3 % (36.7-47.1); HEMOGLOBIN 11.6 g/dL (12.5-16.3); LYMPHOCYTES # (AUTO) 2.7 K/uL (20.0-40.0); LYMPHOCYTES % (AUTO) 51.6 % (20.5-51.5); MEAN CORPUSCULAR HEMOGLOBIN 31.3 uug (23.8-33.4); MEAN CORPUSCULAR HGB CONC 34 g/dL (32.5-36.3); MEAN CORPUSCULAR VOLUME 93.1 fL (73.0-96.2); MONOCYTES # (AUTO) 0.4 K/uL (2.0-10.0); MONOCYTES % (AUTO) 7.7 % (0.0-11.0); NEUTROPHILS % (AUTO) 37.9 % (38.5-71.5); PLATELET COUNT (AUTO) 226 K/uL (152-348); RED BLOOD CELL COUNT(AUTO) 3.69 MIL/uL (4.06-5.63); WHITE BLOOD COUNT (AUTO) 5.2 K/uL (3.6-10.2)
[2019-03-24 06:59] LABS: CREATININE 1.1 mg/dL (0.6-1.3); MAGNESIUM 1.8 mg/dL (1.8-2.4); POTASSIUM 3.8 mmol/L (3.5-5.1)
--- NOTE | 2019-03-24 07:10 | NUR ---
Received patient awake in bed. AAOx4. No acute distress noted. Iv on right wrist intact and patent with IVF running. Safety measures implemented. Will continue to monitor.
[2019-03-24] MEDS: CLONAZEPAM 1 MG TABLET PO PRN (08:30)
[2019-03-24] MEDS: FAMOTIDINE 20 MG TABLET PO SCH (08:31)
[2019-03-24] MEDS: NICOTINE 14 MG/24HR PATCH TD SCH (08:31)
[2019-03-24] MEDS: busPIRone 5 MG TABLET PO SCH (09:02)
[2019-03-24] MEDS ORDERED: DIATR MEGLU/DIATRIZOATE SODIUM 30 ML SOLUTION ONE (09:17)
--- NOTE | 2019-03-24 09:30 | NUR ---
Discussed discharge with CHANCE León. Procedure scheduled for this morning cancelled. Awaiting d/c orders. Patient stable at this time
[2019-03-24] MEDS ORDERED: HYDR-3326 PO (10:16)
[2019-03-24] MEDS ORDERED: FAMO20TA41 PO (10:16)
[2019-03-24] MEDS ORDERED: ONDA4TAB5 PO (10:16)
[2019-03-24] MEDS ORDERED: CLON2TAB PO (10:16)
--- NOTE | 2019-03-24 11:01 | NUR ---
Patient discharged. Vital signs stable. No acute distress.
== END 2019-03-24 10:55 | disposition home or self-care (01) | DRG 254 ==
LOC: ER 13:36 → MEDSURG3 16:04
PROVIDERS: ADMIT Nurse Practitioner Acute Care; ATTEND Nurse Practitioner Acute Care
DX: K31.89 Other diseases of stomach and duodenum (principal); E44.0 Moderate protein-calorie malnutrition; E87.6 Hypokalemia; F12.288 Cannabis dependence with other cannabis-induced disorder; R11.2 Nausea with vomiting, unspecified; G89.4 Chronic pain syndrome; Z76.5 Malingerer [conscious simulation]; Z68.1 Body mass index [BMI] 19.9 or less, adult; F17.210 Nicotine dependence, cigarettes, uncomplicated; F41.9 Anxiety disorder, unspecified; F31.9 Bipolar disorder, unspecified; E83.42 Hypomagnesemia; E86.0 Dehydration; K20.9 Esophagitis, unspecified; Z91.19 Patient's noncompliance with other medical treatment and regimen; M48.00 Spinal stenosis, site unspecified; R79.89 Other specified abnormal findings of blood chemistry; M54.9 Dorsalgia, unspecified; R01.1 Cardiac murmur, unspecified
CPT/HCPCS: 36415; 80307; 83690; 83735; 84100; 85025; A4663; G0378; J2060; J2270; J2405; J3475; J7030; Q9963

== ENCOUNTER 2019-03-28 19:12 | Emergency (ER) | payer OTHER ==
[~2019-03-28] VITALS: Ht 180.3 cm; Wt 59.4 kg
[~2019-03-28 19:12] MED LIST changes: +FAMO20TA41 PO; +HYDR-3326 PO; +METO-295 PO; +ONDA4TAB5 PO
--- NOTE | 2019-03-28 19:30 | NUR ---
Pt. ambulated into ED accompanied by female driver wheelchair w/ c/o eye twitching after ingesting ecstasy x 2 hours JUNIOR BOOKKEEPER, pt. is alert/responsive/obeys commands, speaks in clear and complete sentences, RR even and unlabored,
--- NOTE | 2019-03-28 19:59 | NUR ---
at bedside for MSE
[2019-03-28] MEDS ORDERED: CLONAZEPAM 1 MG TABLET ONE (20:12)
[2019-03-28] MEDS ORDERED: CLONAZEPAM 0.5 MG TABLET PO ONE (20:15)
--- NOTE | 2019-03-28 20:16 | NUR ---
Patient discharged to home in stable conditon. Written and verbal after care instructions given. Patient verbalizes understanding of instructions. Pt. d/c w/ prescription per MD order, d/c papers signed, all belongings w/ pt., ID band removed, instructed not to drive, ambulated off unit accompanied by female bag grader, LONNY
== END 2019-03-28 20:17 | disposition home or self-care (01) ==
LOC: ER 19:14
DX: R25.3 Fasciculation (principal); T50.995A Adverse effect of other drugs, medicaments and biological substances, initial encounter; F17.200 Nicotine dependence, unspecified, uncomplicated; F12.10 Cannabis abuse, uncomplicated; Z79.899 Other long term (current) drug therapy; Y92.89 Other specified places as the place of occurrence of the external cause

== ENCOUNTER 2019-04-02 20:14 | Emergency (ER) | payer OTHER ==
[~2019-04-02] VITALS: Ht 180.3 cm; Wt 56.7 kg
[~2019-04-02 20:14] MED LIST changes: -METO-295 PO
[2019-04-02] MEDS ORDERED: BUSPIRONE HCL 5 MG (20:30)
[2019-04-02] MEDS ORDERED: QUET50TA PO (20:30)
[2019-04-02] MEDS ORDERED: ESCITALOPRAM 10 MG (20:30)
--- NOTE | 2019-04-02 20:35 | NUR ---
Patient ambulated with stable gait. Speech clear, speaks in complete sentences. A/Ox4. Patient came for c/o abdominal pain along with nausea and general weakness since yesterday. Respiratory even and unlabored, no cough no sob. No cardiovascular distress noted, all pulses palpable. Denies any current vomitting.
--- NOTE | 2019-04-02 22:00 | NUR ---
Patient in bed at lowest position, repeatedly asking for narcotics. Informed patient that ERMD made decision to avoid opioid pain management therapy.
[2019-04-02 22:04] LABS: BASOPHILS % (AUTO) 0.4 % (0.0-2.0); EOSINOPHILS % (AUTO) 0.1 % (0.0-7.0); HEMATOCRIT 41.5 % (36.7-47.1); HEMOGLOBIN 14.3 g/dL (12.5-16.3); LYMPHOCYTES % (AUTO) 11.8 % (20.5-51.5); MEAN CORPUSCULAR HEMOGLOBIN 31.3 uug (23.8-33.4); MEAN CORPUSCULAR HGB CONC 34 g/dL (32.5-36.3); MEAN CORPUSCULAR VOLUME 91.3 fL (73.0-96.2); MONOCYTES # (AUTO) 0.6 K/uL (2.0-10.0); MONOCYTES % (AUTO) 6.9 % (0.0-11.0); NEUTROPHILS # (AUTO) 7.1 K/uL (1.8-8.9); NEUTROPHILS % (AUTO) 80.8 % (38.5-71.5); PLATELET COUNT (AUTO) 241 K/uL (152-348); RED BLOOD CELL COUNT(AUTO) 4.55 MIL/uL (4.06-5.63); WHITE BLOOD COUNT (AUTO) 8.8 K/uL (3.6-10.2)
[2019-04-02] MEDS: KETAMINE HCL 500 MG/10 ML INJ IV ONE ×3 (22:05→23:34)
[2019-04-02] MEDS: LORAZEPAM 2 MG/1 ML VIAL IV ONE ×3 (22:05→23:34)
[2019-04-02] MEDS ORDERED: KETAMINE HCL 500 MG/10 ML INJ ONE (22:05)
[2019-04-02] MEDS ORDERED: LORAZEPAM 2 MG/1 ML VIAL ONE ×3 (22:05→23:27)
[2019-04-02 22:20] LABS: CREATININE 1.3 mg/dL (0.6-1.3); POTASSIUM 3.9 mmol/L (3.5-5.1)
[2019-04-02 22:26] LABS: BILIRUBIN,DIRECT 0.1 mg/dL (0.0-0.2); BILIRUBIN,TOTAL 0.8 mg/dL (0.2-1.0)
[2019-04-02] MEDS: IV NORMAL SALINE 1000 ML BAG IV ONE (22:28)
[2019-04-03] MEDS: IV NORMAL SALINE 1000 ML BAG IV ONE (00:43)
[2019-04-03] MEDS: KETAMINE HCL 500 MG/10 ML INJ IV ONE ×3 (00:43→01:15)
--- NOTE | 2019-04-03 01:25 | NUR ---
Advised patient that he will not be able to drive, patient understands instructions. States that an uber will be transporting him home.
--- NOTE | 2019-04-03 01:25 | NUR ---
Patient discharged to home in stable conditon. Written and verbal after care instructions given. Patient verbalizes understanding of instructions. Patient ambulated with stable gait.
[2019-04-03 01:51] VITALS: BP 108/72
== END 2019-04-03 01:25 | disposition home or self-care (01) ==
LOC: ER 20:14
DX: F12.188 Cannabis abuse with other cannabis-induced disorder (principal); R11.10 Vomiting, unspecified; G89.29 Other chronic pain; R10.9 Unspecified abdominal pain; N19 Unspecified kidney failure; F41.9 Anxiety disorder, unspecified; F32.9 Major depressive disorder, single episode, unspecified; F12.10 Cannabis abuse, uncomplicated; F17.200 Nicotine dependence, unspecified, uncomplicated; Z79.899 Other long term (current) drug therapy
CPT/HCPCS: 36415; 80048; 80076; 83690; 84484; 85025; 96361; 96374; 96375; 96376; 99283; J2060 ×3; J3490; 70030-TC; A4663; J7030

== ENCOUNTER 2019-04-03 11:06 | Emergency (ER) | payer OTHER ==
[~2019-04-03] VITALS: Ht 180.3 cm; Wt 59.0 kg
[~2019-04-03 11:06] MED LIST changes: +ESCITALOPRAM 10 MG; -HYDR-3326 PO; +QUET50TA PO
--- NOTE | 2019-04-03 11:18 | NUR ---
Dr Campbell at the bedside for MSE.
[2019-04-03] MEDS ORDERED: ONDANSETRON 4 MG/2 ML VIAL ONE (11:25)
[2019-04-03] MEDS ORDERED: HYDROMORPHONE 2 MG/1 ML DISP.SYRIN ONE (11:25)
[2019-04-03 11:30] VITALS: BP 110/61
[2019-04-03] MEDS ORDERED: ONDANSETRON 4 MG/2 ML VIAL IM ONE (11:30)
[2019-04-03] MEDS ORDERED: HYDROMORPHONE 1 MG/1 ML DISP.SYRIN IM ONE (11:30)
--- NOTE | 2019-04-03 11:31 | NUR ---
Patient discharged to home in stable conditon. Written and verbal after care instructions given. Patient verbalizes understanding of instructions. Pt walked out of ER w/ steady gait.
== END 2019-04-03 11:32 | disposition home or self-care (01) ==
LOC: ER 11:06
DX: G89.4 Chronic pain syndrome (principal); R10.9 Unspecified abdominal pain; F12.188 Cannabis abuse with other cannabis-induced disorder; R11.2 Nausea with vomiting, unspecified; F41.9 Anxiety disorder, unspecified; F32.9 Major depressive disorder, single episode, unspecified; F12.10 Cannabis abuse, uncomplicated; F17.200 Nicotine dependence, unspecified, uncomplicated; Z79.899 Other long term (current) drug therapy
CPT/HCPCS: 96372 ×2; 99283; J1170; J2405; A4663

== ENCOUNTER 2019-04-04 11:25 | Emergency (ER) | payer OTHER ==
[~2019-04-04] VITALS: Ht 180.3 cm; Wt 58.5 kg
[2019-04-04] MEDS ORDERED: MAG HYDROX/AL HYDROX/SIMETH 30 ML LIQUID UDC PO ONE (11:45)
[2019-04-04] MEDS ORDERED: LIDOCAINE VISCUS 2% 15 ML UDC MM ONE (11:45)
[2019-04-04] MEDS ORDERED: HYDROMORPHONE 1 MG/1 ML DISP.SYRIN SQ ONE (11:45)
[2019-04-04] MEDS ORDERED: LIDOCAINE VISCUS 2% 15 ML UDC ONE (11:50)
[2019-04-04] MEDS ORDERED: MAG HYDROX/AL HYDROX/SIMETH 30 ML LIQUID UDC ONE (11:50)
[2019-04-04] MEDS ORDERED: HYDROMORPHONE 2 MG/1 ML DISP.SYRIN ONE (11:50)
[2019-04-04 11:58] LABS: BASOPHILS # (AUTO) 0.1 K/uL (0.0-8.0); EOSINOPHILS # (AUTO) 0.1 K/uL (0.0-0.7); HEMATOCRIT 41.3 % (36.7-47.1); LYMPHOCYTES # (AUTO) 1.6 K/uL (20.0-40.0); LYMPHOCYTES % (AUTO) 22.8 % (20.5-51.5); MEAN CORPUSCULAR HGB CONC 34 g/dL (32.5-36.3); MEAN CORPUSCULAR VOLUME 91.4 fL (73.0-96.2); MONOCYTES # (AUTO) 0.6 K/uL (2.0-10.0); MONOCYTES % (AUTO) 8.3 % (0.0-11.0); NEUTROPHILS # (AUTO) 4.8 K/uL (1.8-8.9); NEUTROPHILS % (AUTO) 66.9 % (38.5-71.5); PLATELET COUNT (AUTO) 235 K/uL (152-348); RED BLOOD CELL COUNT(AUTO) 4.52 MIL/uL (4.06-5.63); WHITE BLOOD COUNT (AUTO) 7.2 K/uL (3.6-10.2)
[2019-04-04] MEDS ORDERED: HYDROMORPHONE 1 MG/1 ML DISP.SYRIN IM ONE (12:00)
[2019-04-04 12:05] LABS: CREATININE 1.2 mg/dL (0.6-1.3); POTASSIUM 3.8 mmol/L (3.5-5.1)
[2019-04-04 12:11] LABS: BILIRUBIN,DIRECT 0.2 mg/dL (0.0-0.2); BILIRUBIN,TOTAL 0.9 mg/dL (0.2-1.0); TOTAL PROTEIN, SERUM 7.3 g/dL (6.4-8.2)
--- NOTE | 2019-04-04 12:35 | NUR ---
Patient discharged to home in stable conditon. Written and verbal after care instructions given. Patient verbalizes understanding of instructions.
== END 2019-04-04 12:36 | disposition home or self-care (01) ==
LOC: ER 11:29
DX: R10.13 Epigastric pain (principal); G89.4 Chronic pain syndrome; R79.89 Other specified abnormal findings of blood chemistry; R11.2 Nausea with vomiting, unspecified; N19 Unspecified kidney failure; F41.9 Anxiety disorder, unspecified; F31.9 Bipolar disorder, unspecified; F12.10 Cannabis abuse, uncomplicated; F17.200 Nicotine dependence, unspecified, uncomplicated; Z79.899 Other long term (current) drug therapy
CPT/HCPCS: 36415; 80048; 80076; 83690; 85025; 96372; 99283; J1170; A4663

== ENCOUNTER 2019-04-06 10:26 | Emergency (ER) | payer OTHER ==
[~2019-04-06] VITALS: Ht 180.3 cm; Wt 59.0 kg
--- NOTE | 2019-04-06 10:37 | NUR ---
BULMARO CORTÉS AT BEDSIDE FOR MSE.
--- NOTE | 2019-04-06 10:40 | NUR ---
ER MD DISCUSSED PLAN OF CARE W/ THE PT. PT REQUESTED FOR AN INJECTION OF DILAUDID AND EXPRESSED DISAGREEMENT W/ THE ER MD'S PLAN OF CARE.
--- NOTE | 2019-04-06 10:44 | NUR ---
Patient eloped from facility. ER physician notified.
[2019-04-06] MEDS ORDERED: ONDANSETRON 4 MG/2 ML VIAL IV ONE (10:45)
[2019-04-06] MEDS ORDERED: IV NORMAL SALINE 1000 ML BAG IV ONE (10:45)
[2019-04-06] MEDS ORDERED: MAG HYDROX/AL HYDROX/SIMETH 30 ML LIQUID UDC PO ONE (10:45)
== END 2019-04-06 10:49 | disposition left against medical advice (07) ==
LOC: ER 10:26
DX: G89.29 Other chronic pain (principal); R10.30 Lower abdominal pain, unspecified; R11.2 Nausea with vomiting, unspecified; N19 Unspecified kidney failure; F41.9 Anxiety disorder, unspecified; F31.9 Bipolar disorder, unspecified; F17.200 Nicotine dependence, unspecified, uncomplicated; F12.10 Cannabis abuse, uncomplicated; Z79.899 Other long term (current) drug therapy
CPT/HCPCS: A4663

== ENCOUNTER 2019-05-12 09:34 | Emergency (ER) | payer OTHER ==
[~2019-05-12] VITALS: Ht 182.9 cm; Wt 56.7 kg
[2019-05-12] MEDS ORDERED: HYDROMORPHONE 1 MG/1 ML DISP.SYRIN IM ONE (10:15)
[2019-05-12] MEDS ORDERED: ONDANSETRON 4 MG/2 ML VIAL IM ONE (10:15)
[2019-05-12] MEDS ORDERED: ONDANSETRON 4 MG/2 ML VIAL ONE (10:24)
[2019-05-12] MEDS ORDERED: HYDROMORPHONE 2 MG/1 ML DISP.SYRIN ONE (10:24)
--- NOTE | 2019-05-12 10:30 | NUR ---
Patient discharged to home in stable conditon. Written and verbal after care instructions given. Patient verbalizes understanding of instructions.
== END 2019-05-12 10:30 | disposition home or self-care (01) ==
LOC: ER 09:34
DX: F11.23 Opioid dependence with withdrawal (principal); F41.9 Anxiety disorder, unspecified; F31.9 Bipolar disorder, unspecified; F17.200 Nicotine dependence, unspecified, uncomplicated; F15.10 Other stimulant abuse, uncomplicated; F12.10 Cannabis abuse, uncomplicated; Z79.899 Other long term (current) drug therapy
CPT/HCPCS: 96372 ×2; 99283; J1170; J2405; A4663

== ENCOUNTER 2019-05-20 07:55 | Emergency (ER) | payer OTHER ==
[~2019-05-20] VITALS: Ht 182.9 cm; Wt 53.5 kg
--- NOTE | 2019-05-20 08:07 | NUR ---
Dr. Mcintyre at the bedside for MSE.
[2019-05-20 08:33] LABS: BASOPHILS % (AUTO) 0.4 % (0.0-2.0); EOSINOPHILS # (AUTO) 0.2 K/uL (0.0-0.7); EOSINOPHILS % (AUTO) 1.6 % (0.0-7.0); HEMATOCRIT 45.9 % (36.7-47.1); HEMOGLOBIN 16.1 g/dL (12.5-16.3); LYMPHOCYTES # (AUTO) 1.7 K/uL (20.0-40.0); LYMPHOCYTES % (AUTO) 17.2 % (20.5-51.5); MEAN CORPUSCULAR HEMOGLOBIN 31.3 uug (23.8-33.4); MEAN CORPUSCULAR HGB CONC 35 g/dL (32.5-36.3); MEAN CORPUSCULAR VOLUME 89.2 fL (73.0-96.2); MONOCYTES # (AUTO) 0.9 K/uL (2.0-10.0); MONOCYTES % (AUTO) 9.5 % (0.0-11.0); NEUTROPHILS # (AUTO) 7.1 K/uL (1.8-8.9); NEUTROPHILS % (AUTO) 71.3 % (38.5-71.5); PLATELET COUNT (AUTO) 243 K/uL (152-348); RED BLOOD CELL COUNT(AUTO) 5.14 MIL/uL (4.06-5.63); WHITE BLOOD COUNT (AUTO) 9.9 K/uL (3.6-10.2)
[2019-05-20 08:36] LABS: CREATININE 1.5 mg/dL (0.6-1.3)
[2019-05-20 08:41] LABS: POTASSIUM 2.5 mmol/L (3.5-5.1)
[2019-05-20 08:42] LABS: BILIRUBIN,DIRECT 0.2 mg/dL (0.0-0.2); BILIRUBIN,TOTAL 1.1 mg/dL (0.2-1.0); TOTAL PROTEIN, SERUM 8.7 g/dL (6.4-8.2)
[2019-05-20] MEDS: POTASSIUM CHLORIDE 20 MEQ TAB.PRT.SR PO ONE ×2 (08:52→09:01)
[2019-05-20] MEDS ORDERED: POTASSIUM CHLORIDE 20 MEQ TAB.PRT.SR ONE (08:55)
--- NOTE | 2019-05-20 08:57 | NUR ---
Pt refusing PO pill potassium. Pt stated unable to take down whole pills and c/o of vomiting afterwards. Pt okay with taking powder potassium. aware.
[2019-05-20] MEDS ORDERED: POTASSIUM CHLORIDE 20 MEQ POWDER PACKET ONE (09:04)
--- NOTE | 2019-05-20 09:28 | NUR ---
Patient discharged to home in stable conditon. Written and verbal after care instructions given. Patient verbalizes understanding of instructions.
== END 2019-05-20 09:25 | disposition home or self-care (01) ==
LOC: ER 07:55
DX: E87.6 Hypokalemia (principal); N28.9 Disorder of kidney and ureter, unspecified; F11.23 Opioid dependence with withdrawal; F41.9 Anxiety disorder, unspecified; F32.9 Major depressive disorder, single episode, unspecified; F17.200 Nicotine dependence, unspecified, uncomplicated; F12.10 Cannabis abuse, uncomplicated; Z79.899 Other long term (current) drug therapy
CPT/HCPCS: 36415; 83690; 85025; A4663

== ENCOUNTER 2019-05-22 03:59 | Emergency (ER) | payer OTHER ==
[~2019-05-22] VITALS: Ht 182.9 cm; Wt 65.8 kg
--- NOTE | 2019-05-22 04:21 | NUR ---
ERMD at bedside for MSE
[2019-05-22] MEDS ORDERED: KETOROLAC TROMETHAMINE 30 MG INJ IVP ONE (04:30)
[2019-05-22] MEDS ORDERED: PROCHLORPERAZINE EDISYLATE 10 MG/2 ML VIAL IV ONE (04:30)
[2019-05-22] MEDS ORDERED: IV NORMAL SALINE 1000 ML BAG IV ONE (04:30)
[2019-05-22 04:48] LABS: BASOPHILS # (AUTO) 0.1 K/uL (0.0-8.0); EOSINOPHILS # (AUTO) 0.4 K/uL (0.0-0.7); EOSINOPHILS % (AUTO) 4.2 % (0.0-7.0); HEMATOCRIT 42.3 % (36.7-47.1); HEMOGLOBIN 15.1 g/dL (12.5-16.3); LYMPHOCYTES # (AUTO) 2.3 K/uL (20.0-40.0); LYMPHOCYTES % (AUTO) 25.3 % (20.5-51.5); MEAN CORPUSCULAR HEMOGLOBIN 31.6 uug (23.8-33.4); MEAN CORPUSCULAR HGB CONC 36 g/dL (32.5-36.3); MEAN CORPUSCULAR VOLUME 88.5 fL (73.0-96.2); MONOCYTES # (AUTO) 0.8 K/uL (2.0-10.0); MONOCYTES % (AUTO) 8.5 % (0.0-11.0); NEUTROPHILS # (AUTO) 5.6 K/uL (1.8-8.9); PLATELET COUNT (AUTO) 244 K/uL (152-348); RED BLOOD CELL COUNT(AUTO) 4.78 MIL/uL (4.06-5.63); WHITE BLOOD COUNT (AUTO) 9.3 K/uL (3.6-10.2)
[2019-05-22] MEDS ORDERED: KETOROLAC TROMETHAMINE 30 MG INJ ONE (04:51)
[2019-05-22] MEDS ORDERED: PROCHLORPERAZINE EDISYLATE 10 MG/2 ML VIAL ONE (04:52)
[2019-05-22 04:57] LABS: CHLORIDE 93 mmol/L (98-107); CREATININE 1.3 mg/dL (0.6-1.3); GLUCOSE 89 mg/dL (74-106); UREA NITROGEN, BLOOD 36 mg/dL (7-18)
[2019-05-22 05:02] LABS: CARBON DIOXIDE 45 mmol/L (21-32)
[2019-05-22 05:03] LABS: ALANINE AMINOTRANSFERASE 18 U/L (16-63); ALKALINE PHOSPHATASE 73 U/L (50-136); ASPARTATE AMINOTRANSFERASE 24 U/L (15-37); BILIRUBIN,DIRECT 0.2 mg/dL (0.0-0.2); BILIRUBIN,TOTAL 0.8 mg/dL (0.2-1.0); TOTAL PROTEIN, SERUM 8.4 g/dL (6.4-8.2)
--- NOTE | 2019-05-22 05:08 | NUR ---
Patient does not wish to proceed with medical care recommended by Dr. Shanks. Patient given information related to possible complications, up to and including , which could occur as a result of leaving the hospital at this time. Patient verbalizes understanding of risks involved due to leaving against medical advice. Patient has signed AMA form.
[2019-05-22 05:09] VITALS: BP 115/83
[2019-05-22 05:10] LABS: ETHANOL < 3 MG/DL (0-0)
== END 2019-05-22 05:10 | disposition left against medical advice (07) ==
LOC: ER 04:01
DX: G89.4 Chronic pain syndrome (principal); M79.10 Myalgia, unspecified site; F11.23 Opioid dependence with withdrawal; E87.3 Alkalosis; E87.6 Hypokalemia; R64 Cachexia; R11.0 Nausea; F41.9 Anxiety disorder, unspecified; F31.9 Bipolar disorder, unspecified; F12.10 Cannabis abuse, uncomplicated; F17.290 Nicotine dependence, other tobacco product, uncomplicated; Z71.6 Tobacco abuse counseling; Z79.899 Other long term (current) drug therapy
CPT/HCPCS: 36415; 80048; 80076; 85025; 93005; 96374; 96375; 99284; 99406; G0480; J0780; J1885; A4663; J7030

== ENCOUNTER 2019-05-24 16:37 | Emergency (ER) | payer OTHER ==
[~2019-05-24] VITALS: Ht 182.9 cm; Wt 56.7 kg
--- NOTE | 2019-05-24 18:00 | NUR ---
Patient was moved from 5A to room 5B. Patient is here for non-specific generalized aches, still for MD to evaluate, no acute change in condition seen. Patient's respiration is easy & calm.
--- NOTE | 2019-05-24 19:00 | NUR ---
RECEIVED HAND OFF AND SBAR FROM OUTGOING DAY SHIFT RN (JUNE) PT C/O GENERALIZED PAIN AND MORE ON THE ABDOMEN. TO START IVF RIGHT HAND DORSAL PT ABLE TO SIT AND AMBULATE. KEPT WARM SAFE AND COMFORTABLE. MD UPDATE
--- NOTE | 2019-05-24 19:09 | NUR ---
Patient is still for MD to evaluate, endorsed to JESSICA Davis accordingly.
[2019-05-24] MEDS ORDERED: ONDANSETRON 4 MG/2 ML VIAL IV ONE ×2 (19:30→21:00)
[2019-05-24] MEDS ORDERED: HYDROMORPHONE 1 MG/1 ML DISP.SYRIN IV ONE ×2 (19:30→21:00)
[2019-05-24] MEDS ORDERED: IV NORMAL SALINE 1000 ML BAG IV ONE (19:30)
[2019-05-24] MEDS ORDERED: HYDROMORPHONE 1 MG/1 ML DISP.SYRIN ONE ×2 (19:41→20:55)
[2019-05-24] MEDS ORDERED: ONDANSETRON 4 MG/2 ML VIAL ONE ×2 (19:41→21:05)
--- NOTE | 2019-05-24 21:48 | NUR ---
Patient discharged to home in stable conditon. Written and verbal after care instructions given. Patient verbalizes understanding of instructions.
[2019-05-24 21:50] VITALS: BP 104/65
== END 2019-05-24 21:51 | disposition home or self-care (01) ==
LOC: ER 16:40
DX: F11.23 Opioid dependence with withdrawal (principal); N18.6 End stage renal disease; F32.9 Major depressive disorder, single episode, unspecified; F17.200 Nicotine dependence, unspecified, uncomplicated; F12.10 Cannabis abuse, uncomplicated; Z79.899 Other long term (current) drug therapy
CPT/HCPCS: 96361; 96374; 96375; 96376; 99283; J1170 ×2; J2405 ×2; A4663; J7030

== ENCOUNTER 2019-12-16 10:20 | Emergency (ER) | payer OTHER ==
[~2019-12-16] VITALS: Ht 182.9 cm; Wt 72.6 kg
--- NOTE | 2019-12-16 10:34 | NUR ---
Pt is AOx3 c/o nausea and vomiting RA NAD pt denies fevers/chills/sob monitored accordingly
--- NOTE | 2019-12-16 10:42 | NUR ---
FERNANDO AT [facility] FOR HX AND PHYSICAL
[2019-12-16] MEDS ORDERED: HALOPERIDOL LACTATE 5 MG/1 ML VIAL IM ONE (10:45)
[2019-12-16] MEDS ORDERED: ONDANSETRON 4 MG/2 ML VIAL IV ONE (10:45)
[2019-12-16] MEDS ORDERED: IV NORMAL SALINE 1000 ML BAG IV ONE ×2 (10:45→12:00)
[2019-12-16] MEDS ORDERED: diphenhydrAMINE 50 MG/1 ML VIAL IV ONE (10:45)
--- NOTE | 2019-12-16 11:04 | NUR ---
TRANSPORTED TO CT ACCOMPANIED BY [employer] RA NAD HR AT 120BPM
[2019-12-16] MEDS ORDERED: diphenhydrAMINE 50 MG/1 ML VIAL ONE (11:25)
[2019-12-16] MEDS ORDERED: ONDANSETRON 4 MG/2 ML VIAL ONE (11:26)
[2019-12-16] MEDS ORDERED: HALOPERIDOL LACTATE 5 MG/1 ML VIAL ONE (11:26)
[2019-12-16 11:35] LABS: BASOPHILS # (AUTO) 0.1 K/uL (0.0-8.0); BASOPHILS % (AUTO) 0.8 % (0.0-2.0); EOSINOPHILS % (AUTO) 0.1 % (0.0-7.0); HEMOGLOBIN 17.1 g/dL (12.5-16.3); LYMPHOCYTES # (AUTO) 1.5 K/uL (20.0-40.0); LYMPHOCYTES % (AUTO) 11.4 % (20.5-51.5); MEAN CORPUSCULAR HEMOGLOBIN 31.7 uug (23.8-33.4); MEAN CORPUSCULAR HGB CONC 35 g/dL (32.5-36.3); MONOCYTES # (AUTO) 1.6 K/uL (2.0-10.0); MONOCYTES % (AUTO) 12.3 % (0.0-11.0); NEUTROPHILS % (AUTO) 75.4 % (38.5-71.5); PLATELET COUNT (AUTO) 292 K/uL (152-348); RED BLOOD CELL COUNT(AUTO) 5.39 MIL/uL (4.06-5.63); WHITE BLOOD COUNT (AUTO) 13.3 K/uL (3.6-10.2)
[2019-12-16 11:40] LABS: CREATININE 2.1 mg/dL (0.6-1.3); POTASSIUM 3.5 mmol/L (3.5-5.1)
[2019-12-16 11:46] LABS: BILIRUBIN,DIRECT 0.2 mg/dL (0.0-0.2); BILIRUBIN,TOTAL 1.2 mg/dL (0.2-1.0); TOTAL PROTEIN, SERUM 9.5 g/dL (6.4-8.2)
--- NOTE | 2019-12-16 12:00 | NUR ---
Pt asleep but easily rousable monitored accordingly NAD RA Kept warm dry and comfortable siderailsx2 up bed at lowest position
--- NOTE | 2019-12-16 13:30 | NUR ---
Pt refused to provide urine sample
--- NOTE | 2019-12-16 13:52 | NUR ---
Patient discharged to home in stable conditon. Written and verbal after care instructions given. Patient verbalizes understanding of instructions. ambulatory w/ stable gait all belongings w/ pt IV DC, dressed
[2019-12-16 13:55] VITALS: BP 115/74
== END 2019-12-16 13:56 | disposition home or self-care (01) ==
LOC: ER 10:20
DX: F12.988 Cannabis use, unspecified with other cannabis-induced disorder (principal); R11.10 Vomiting, unspecified; N17.9 Acute kidney failure, unspecified; D72.829 Elevated white blood cell count, unspecified; F17.200 Nicotine dependence, unspecified, uncomplicated; Z79.899 Other long term (current) drug therapy
CPT/HCPCS: 36415; 74176; 80048; 80076; 83690; 83735; 84484; 85025; 93005; 96361; 96372; 96374; 96375; 99285; J1200; J1630; J2405; 70030-TC; A4663; J7030

== ENCOUNTER 2019-12-17 03:18 | Emergency (ER) | payer OTHER ==
[~2019-12-17] VITALS: Ht 182.9 cm; Wt 77.1 kg
--- NOTE | 2019-12-17 03:35 | NUR ---
Dr. Kraft at bedside for MSE.
[2019-12-17] MEDS ORDERED: PANTOPRAZOLE SODIUM 40 MG VIAL IV ONE (03:45)
[2019-12-17] MEDS ORDERED: KETOROLAC TROMETHAMINE 30 MG INJ IVP ONE (03:45)
[2019-12-17] MEDS ORDERED: PROCHLORPERAZINE EDISYLATE 10 MG/2 ML VIAL IV ONE (03:45)
[2019-12-17] MEDS ORDERED: diphenhydrAMINE 50 MG/1 ML VIAL IV ONE (03:45)
[2019-12-17] MEDS ORDERED: IV NORMAL SALINE 1000 ML BAG IV ONE ×2 (03:45→06:15)
[2019-12-17] MEDS ORDERED: diphenhydrAMINE 50 MG/1 ML VIAL ONE (03:48)
[2019-12-17] MEDS ORDERED: PANTOPRAZOLE SODIUM 40 MG VIAL ONE (03:49)
[2019-12-17] MEDS ORDERED: PROCHLORPERAZINE EDISYLATE 10 MG/2 ML VIAL ONE (03:49)
[2019-12-17] MEDS ORDERED: KETOROLAC TROMETHAMINE 30 MG INJ ONE (03:50)
--- NOTE | 2019-12-17 04:10 | NUR ---
Pt unable to provide urine at this time.
[2019-12-17 04:18] LABS: BASOPHILS # (AUTO) 0.1 K/uL (0.0-8.0); BASOPHILS % (AUTO) 0.5 % (0.0-2.0); EOSINOPHILS % (AUTO) 0.4 % (0.0-7.0); HEMATOCRIT 48.4 % (36.7-47.1); HEMOGLOBIN 16.8 g/dL (12.5-16.3); LYMPHOCYTES # (AUTO) 1.6 K/uL (20.0-40.0); LYMPHOCYTES % (AUTO) 15.8 % (20.5-51.5); MEAN CORPUSCULAR HGB CONC 35 g/dL (32.5-36.3); MEAN CORPUSCULAR VOLUME 92.1 fL (73.0-96.2); MONOCYTES # (AUTO) 1.2 K/uL (2.0-10.0); MONOCYTES % (AUTO) 11.8 % (0.0-11.0); NEUTROPHILS # (AUTO) 7.3 K/uL (1.8-8.9); NEUTROPHILS % (AUTO) 71.5 % (38.5-71.5); PLATELET COUNT (AUTO) 259 K/uL (152-348); RED BLOOD CELL COUNT(AUTO) 5.25 MIL/uL (4.06-5.63); WHITE BLOOD COUNT (AUTO) 10.3 K/uL (3.6-10.2)
[2019-12-17 04:21] LABS: CREATININE 1.5 mg/dL (0.6-1.3); POTASSIUM 4.2 mmol/L (3.5-5.1)
[2019-12-17 04:27] LABS: BILIRUBIN,DIRECT 0.3 mg/dL (0.0-0.2); BILIRUBIN,TOTAL 1.7 mg/dL (0.2-1.0); TOTAL PROTEIN, SERUM 8.8 g/dL (6.4-8.2)
--- NOTE | 2019-12-17 05:00 | NUR ---
Pt unable to provide urine sample at this time.
--- NOTE | 2019-12-17 06:00 | NUR ---
Pt unable to provide urine at this time.
[2019-12-17] MEDS ORDERED: LORAZEPAM 2 MG/1 ML VIAL IV ONE (06:15)
[2019-12-17] MEDS ORDERED: LORAZEPAM 2 MG/1 ML VIAL ONE (06:18)
--- NOTE | 2019-12-17 07:45 | NUR ---
IV removed. Catheter intact and site benign. Pressure and 4x4 gauze applied to site. No bleeding noted.
[2019-12-17 07:46] VITALS: BP 113/70
--- NOTE | 2019-12-17 07:48 | NUR ---
Patient discharged to home in stable conditon. Written and verbal after care instructions given. Patient verbalizes understanding of instructions. Pt walked out of ER W/ steady gait.
== END 2019-12-17 07:49 | disposition home or self-care (01) ==
LOC: ER 03:20
DX: G43.A0 Cyclical vomiting, in migraine, not intractable (principal); G89.29 Other chronic pain; R10.84 Generalized abdominal pain; N18.9 Chronic kidney disease, unspecified; F17.200 Nicotine dependence, unspecified, uncomplicated; Z79.899 Other long term (current) drug therapy
CPT/HCPCS: 36415; 80048; 80076; 83690; 85025; 96361; 96374; 96375; 99284; C9113; J0780; J1200; J1885; J2060; A4663; J7030

== ENCOUNTER 2019-12-17 21:33 | Emergency (ER) | payer OTHER ==
[~2019-12-17] VITALS: Ht 182.9 cm; Wt 74.8 kg
[~2019-12-17 21:33] MED LIST changes: +ALPR2TAB2 PO; -BUSP5TAB3 PO; -CITA10TA9 PO; -CLON2TAB PO; -ESCITALOPRAM 10 MG; -FAMO20TA41 PO; -ONDA4TAB5 PO; -QUET50TA PO
--- NOTE | 2019-12-17 21:40 | NUR ---
Patient waked into the ER complaining of abdominal pain (06/06), nasuea and vomiting x4 days with the last vomiting episode 30 minutes prior to this ER visit. He stated he has been here to the ER each day the past 3 days for this same issue. Patient provided emesis bag and pillow.
--- NOTE | 2019-12-17 22:00 | NUR ---
Patient placed on cardiac cath lab manager showing sinus bradycardia. 22 gauge peripheral IV started in the right wrist, tolerated well, no signs of infiltration.
[2019-12-17] MEDS ORDERED: LORAZEPAM 2 MG/1 ML VIAL ONE ×2 (22:18→23:42)
[2019-12-17] MEDS ORDERED: KETAMINE HCL 500 MG/10 ML INJ ONE (22:19)
[2019-12-17] MEDS ORDERED: PROCHLORPERAZINE EDISYLATE 10 MG/2 ML VIAL ONE (22:21)
[2019-12-17] MEDS ORDERED: diphenhydrAMINE 25 MG/10 ML UDC ONE (22:22)
[2019-12-17] MEDS ORDERED: diphenhydrAMINE 50 MG/1 ML VIAL ONE (22:22)
[2019-12-17] MEDS ORDERED: IV NORMAL SALINE 1000 ML BAG IV ONE (22:30)
[2019-12-17] MEDS: diphenhydrAMINE 50 MG/1 ML VIAL IV ONE ×2 (22:37→22:56)
[2019-12-17] MEDS: PROCHLORPERAZINE EDISYLATE 10 MG/2 ML VIAL IV ONE ×2 (22:37→22:57)
[2019-12-17] MEDS: KETAMINE HCL 500 MG/10 ML INJ IV ONE ×2 (22:37→22:57)
[2019-12-17] MEDS: LORAZEPAM 2 MG/1 ML VIAL IV ONE ×2 (22:37→22:57)
[2019-12-17] MEDS ORDERED: KETAMINE HCL 500 MG/10 ML INJ IV ONE (23:30)
[2019-12-17] MEDS ORDERED: LORAZEPAM 2 MG/1 ML VIAL IV ONE (23:45)
--- NOTE | 2019-12-18 00:05 | NUR ---
Dr. Shanks ordered discharge. Peripheral line in the right wrist discontinued. No signs of infection/infiltration.
--- NOTE | 2019-12-18 00:07 | NUR ---
patient discharged @0007. patient stable without sob or distress. pain level reported to be reduced but still there. patient VS stable. Teaching for lorazepam 2mg prescription with understanding verbalized. Follow up information discussed with patient with understanding verbalized. Addendum: 12/18/19 at 0020 by SUKUMAR Patient left the ER under his own power and stated he will procure [employer] transportation. We offered to call for him, but he stated he will take care of it.
[2019-12-18 00:22] VITALS: BP 122/68
[2019-12-20] MEDS ORDERED: ONDA4TAB8 PO (07:33)
[2019-12-20] MEDS ORDERED: PROC25SU31 RC (07:33)
== END 2019-12-18 00:07 | disposition home or self-care (01) ==
LOC: ER 21:35
DX: R11.15 Cyclical vomiting syndrome unrelated to migraine (principal); G89.4 Chronic pain syndrome; F19.10 Other psychoactive substance abuse, uncomplicated; F13.239 Sedative, hypnotic or anxiolytic dependence with withdrawal, unspecified; F12.90 Cannabis use, unspecified, uncomplicated; F17.290 Nicotine dependence, other tobacco product, uncomplicated
CPT/HCPCS: 99284; 96361; 96374; 96375; 96376; 99406; J0780; J1200; J2060 ×2; J3490; Q0163; A4663

== ENCOUNTER 2019-12-18 19:33 | Emergency (ER) | payer SELFPAY ==
--- NOTE | 2019-12-18 19:47 | NUR ---
Patient left without being triaged or seen by ERMD.
== END 2019-12-18 19:48 | disposition left against medical advice (07) ==
LOC: ER 19:35
DX: Z53.21 Procedure and treatment not carried out due to patient leaving prior to being seen by health care provider (principal)

== ENCOUNTER 2019-12-19 09:18 | Emergency (ER) | payer OTHER ==
[~2019-12-19] VITALS: Ht 182.9 cm; Wt 77.1 kg
--- NOTE | 2019-12-19 09:30 | NUR ---
Patient discharged to home in stable conditon. Written and verbal after care instructions given. Patient verbalizes understanding of instructions.pt walks in steady gait.
== END 2019-12-19 09:36 | disposition home or self-care (01) ==
LOC: ER 09:18
DX: G89.29 Other chronic pain (principal); R10.9 Unspecified abdominal pain; F31.9 Bipolar disorder, unspecified; F17.200 Nicotine dependence, unspecified, uncomplicated; Z79.899 Other long term (current) drug therapy
CPT/HCPCS: A4663

== ENCOUNTER 2019-12-19 20:40 | Emergency (ER) | payer OTHER ==
[~2019-12-19] VITALS: Ht 177.8 cm; Wt 74.8 kg
--- NOTE | 2019-12-19 20:50 | NUR ---
Dr. Kraft at bedside for MSE
--- NOTE | 2019-12-19 21:10 | NUR ---
Patient discharged to home in stable conditon. Written and verbal after care instructions given. Patient declined written instructions. Patient verbalizes understanding of instructions. Patient ambulating with steady gait. NAD noted
[2019-12-19 21:12] VITALS: BP 133/85
[2019-12-20] MEDS ORDERED: ONDA4TAB8 PO (07:33)
[2019-12-20] MEDS ORDERED: PROC25SU31 RC (07:33)
== END 2019-12-19 21:10 | disposition home or self-care (01) ==
LOC: ER 20:42
DX: R11.15 Cyclical vomiting syndrome unrelated to migraine (principal); G89.4 Chronic pain syndrome; R10.9 Unspecified abdominal pain; F11.20 Opioid dependence, uncomplicated
CPT/HCPCS: A4663

== ENCOUNTER 2019-12-20 07:22 | Emergency (ER) | payer OTHER ==
[~2019-12-20] VITALS: Ht 182.9 cm; Wt 75.7 kg
--- NOTE | 2019-12-20 07:30 | NUR ---
Patient discharged to home in stable conditon. Written and verbal after care instructions given. Patient verbalizes understanding of instructions.pt walks in steady gait.
== END 2019-12-20 08:00 | disposition home or self-care (01) ==
LOC: ER 07:22
DX: R11.15 Cyclical vomiting syndrome unrelated to migraine (principal); Z76.5 Malingerer [conscious simulation]; G89.4 Chronic pain syndrome; F17.200 Nicotine dependence, unspecified, uncomplicated
CPT/HCPCS: A4663

== ENCOUNTER 2020-05-23 15:07 | Inpatient (IN) | payer OTHER ==
[~2020-05-23] VITALS: Ht 182.9 cm; Wt 59.0 kg
[~2020-05-23 15:07] MED LIST changes: +ONDA4TAB8 PO; +PROC25SU31 RC
[2020-05-23] MEDS ORDERED: ONDANSETRON 4 MG/2 ML VIAL IV ONE (15:30)
[2020-05-23] MEDS ORDERED: PANTOPRAZOLE SODIUM 40 MG VIAL IV ONE (15:30)
[2020-05-23] MEDS ORDERED: IV NORMAL SALINE 1000 ML BAG IV ONE ×2 (15:30→16:30)
[2020-05-23] MEDS ORDERED: ONDANSETRON 4 MG/2 ML VIAL ONE (15:32)
[2020-05-23] MEDS ORDERED: PANTOPRAZOLE SODIUM 40 MG VIAL ONE (15:33)
[2020-05-23 16:08] LABS: BASOPHILS % (AUTO) 0.5 % (0.0-2.0); EOSINOPHILS % (AUTO) 0.1 % (0.0-7.0); HEMATOCRIT 49.6 % (36.7-47.1); HEMOGLOBIN 17.2 g/dL (12.5-16.3); LYMPHOCYTES # (AUTO) 1.5 K/uL (20.0-40.0); LYMPHOCYTES % (AUTO) 16.7 % (20.5-51.5); MEAN CORPUSCULAR HEMOGLOBIN 32.2 uug (23.8-33.4); MEAN CORPUSCULAR HGB CONC 35 g/dL (32.5-36.3); MEAN CORPUSCULAR VOLUME 93.1 fL (73.0-96.2); MONOCYTES # (AUTO) 1.1 K/uL (2.0-10.0); MONOCYTES % (AUTO) 12.5 % (0.0-11.0); NEUTROPHILS # (AUTO) 6.2 K/uL (1.8-8.9); NEUTROPHILS % (AUTO) 70.2 % (38.5-71.5); PLATELET COUNT (AUTO) 216 K/uL (152-348); RED BLOOD CELL COUNT(AUTO) 5.33 MIL/uL (4.06-5.63); WHITE BLOOD COUNT (AUTO) 8.8 K/uL (3.6-10.2)
[2020-05-23 16:18] LABS: CREATININE 1.6 mg/dL (0.6-1.3)
[2020-05-23 16:22] LABS: POTASSIUM 2.2 mmol/L (3.5-5.1)
[2020-05-23 16:24] LABS: BILIRUBIN,DIRECT 0.3 mg/dL (0.0-0.2); BILIRUBIN,TOTAL 1.5 mg/dL (0.2-1.0); TOTAL PROTEIN, SERUM 8.4 g/dL (6.4-8.2)
[2020-05-23] MEDS ORDERED: POTASSIUM CHLORIDE 50 ML IV STA (16:24)
[2020-05-23] MEDS ORDERED: POTASSIUM CHLORIDE 20 MEQ TAB.PRT.SR PO ONE (16:30)
[2020-05-23] MEDS: MAGNESIUM SULFATE/D5W 100 ML IV SCH ×2 (16:30→17:30)
--- NOTE | 2020-05-23 16:30 | NUR ---
PATIENT IS RESTING IN ROOM 1B. POTASSIUM IS LOW, DR COPELAND AWARE. MEDICATIONS GIVEN ORDERED. VITAL SIGNS STABLE. PATIENT IS A DIFFICULY IV START AND DIFFICULT LAB DRAW BUT OTHER RN WAS ABLE TO PLACE ONE ON HIS RIGHT FOREARM. MAGNESIUM IS ON HOLD PER DR COPELAND UNTIL A DREDRAW OF HIS K AND MAGNESIUM IS DONE. PATIENT IS AWAKE ,ALERT, ORIENTED X4. COVID SWAB DONE
[2020-05-23] MEDS ORDERED: POTASSIUM CHLORIDE 100 ML ONE (16:31)
[2020-05-23] MEDS ORDERED: POTASSIUM CHLORIDE 20 MEQ TAB.PRT.SR ONE (16:31)
[2020-05-23] MEDS ORDERED: QUET200T PO (16:32)
[2020-05-23] MEDS ORDERED: QUET100T PO ×2 (16:32)
[2020-05-23] MEDS ORDERED: MAGNESIUM SULFATE/D5W 0 ML ONE (16:34)
--- NOTE | 2020-05-23 18:29 | NUR ---
PATIENT STATES NAUSEA HAS DIMINISHED.
--- NOTE | 2020-05-23 19:07 | NUR ---
HAND OFF REPORT GIVEN TO LUZ LOPEZ
[2020-05-23] MEDS ORDERED: PROCHLORPERAZINE MALEATE 25 MG SUPP.RECT RC PRN (19:30)
[2020-05-23] MEDS ORDERED: POTASSIUM CHLORIDE 50 ML ONE (19:42)
[2020-05-23] MEDS ORDERED: ACETAMINOPHEN 325 MG TABLET PO PRN (19:45)
[2020-05-23] MEDS ORDERED: ONDANSETRON 4 MG/2 ML VIAL IV PRN (19:45)
[2020-05-23] MEDS ORDERED: LORAZEPAM 2 MG/1 ML VIAL IV PRN (19:45)
[2020-05-23 21:15] VITALS: BP 114/77
--- NOTE | 2020-05-23 21:16 | NUR ---
Transfered to 3rd floor via gurny with no distress noted.
[2020-05-23] MEDS: QUETIAPINE FUMARATE 200 MG TABLET PO SCH (21:51)
--- NOTE | 2020-05-23 23:38 | NUR ---
Admitted patient from ER via gurney accompanied by ER nurse with admitting diagnosis of severe hypokalemia and intractable vomiting. AAO x4, no acute distress or SOB was noted. VS stable. On room air. Complained of generalized abdominal pain. History was taken from the patient. Physical assessment performed. IV line in right FA G 20 and in right Jugular vein, no sign of inflammation. All admission work done. MRSA swab done and sent to the lab. Safety measures maintained. Bed in locked and low position side rails up x2 for safety. Prateek light and frequently using items within reach. Continue to monitor.
[2020-05-24] VITALS: BP 100/72
[2020-05-24 06:14] LABS: BASOPHILS # (AUTO) 0.1 K/uL (0.0-8.0); BASOPHILS % (AUTO) 1.3 % (0.0-2.0); EOSINOPHILS # (AUTO) 0.1 K/uL (0.0-0.7); EOSINOPHILS % (AUTO) 1.3 % (0.0-7.0); HEMATOCRIT 39.8 % (36.7-47.1); HEMOGLOBIN 13.9 g/dL (12.5-16.3); LYMPHOCYTES # (AUTO) 2.1 K/uL (20.0-40.0); LYMPHOCYTES % (AUTO) 35.9 % (20.5-51.5); MEAN CORPUSCULAR HEMOGLOBIN 32.5 uug (23.8-33.4); MEAN CORPUSCULAR HGB CONC 35 g/dL (32.5-36.3); MONOCYTES # (AUTO) 0.5 K/uL (2.0-10.0); MONOCYTES % (AUTO) 9.2 % (0.0-11.0); NEUTROPHILS # (AUTO) 3.1 K/uL (1.8-8.9); NEUTROPHILS % (AUTO) 52.3 % (38.5-71.5); PLATELET COUNT (AUTO) 176 K/uL (152-348); RED BLOOD CELL COUNT(AUTO) 4.29 MIL/uL (4.06-5.63); WHITE BLOOD COUNT (AUTO) 5.9 K/uL (3.6-10.2)
[2020-05-24 06:40] LABS: THYROID STIMULATING HORMONE 0.318 mIU/mL (0.358-3.740)
[2020-05-24 06:58] LABS: BILIRUBIN,TOTAL 1.3 mg/dL (0.2-1.0); CREATININE 1.4 mg/dL (0.6-1.3); MAGNESIUM 2.3 mg/dL (1.8-2.4); PHOSPHOROUS 1.5 mg/dL (2.5-4.9); POTASSIUM 3.1 mmol/L (3.5-5.1); TOTAL PROTEIN, SERUM 6.7 g/dL (6.4-8.2)
[2020-05-24] MEDS ORDERED: POTASSIUM PHOSPHATE MM 7.5 MMOL in IV NORMAL SALINE 97.5 ML IV ONE (07:45)
[2020-05-24] MEDS: PANTOPRAZOLE SODIUM 40 MG VIAL IV SCH (08:18)
[2020-05-24] MEDS: QUETIAPINE FUMARATE 100 MG TABLET PO SCH (08:19)
[2020-05-24] MEDS: POTASSIUM CHLORIDE 20 MEQ in IV NS 1000 ML 1,000 ML IV PRN (08:43)
--- NOTE | 2020-05-24 09:55 | NUR ---
received pt. resting in bed alert oriented x4. pt. denies nausea/ vomiting. pt. denies sob/ difficulty breathing. IV in R jugular vein intact patent saline lock. IV in R forearm 20 gauge intact patent running prescribed fluid. safety measures in place. call light within reach. will continue to monitor pt.
[2020-05-24] MEDS: MORPHINE SULFATE 2 MG/1 ML DISP.SYRIN IV PRN ×4 (10:10→22:30)
[2020-05-24] MEDS: NICOTINE 21 MG/24HR PATCH TD SCH (10:10)
[2020-05-24 11:41] VITALS: BP 124/79
[2020-05-24 15:53] VITALS: BP 103/70
--- NOTE | 2020-05-24 19:50 | NUR ---
PATIENT ALERT ORIENTED, NO SOB NO CHEST PAIN. PATIENT HAS NO COMPLAIN OF PAIN AT THIS TIME. PATIENT TOLERATING DIET AT THIS TIME. CONT TO MONITOR.
[2020-05-24] MEDS ORDERED: NEUTRA PHOS PACKET PO ONE (20:00)
[2020-05-24] MEDS: QUETIAPINE FUMARATE 200 MG TABLET PO SCH (20:23)
[2020-05-24 21:03] VITALS: BP 109/64
[2020-05-25 00:17] VITALS: BP 101/60
[2020-05-25] MEDS: POTASSIUM CHLORIDE 20 MEQ in IV NS 1000 ML 1,000 ML IV PRN (00:32)
[2020-05-25] MEDS: MORPHINE SULFATE 2 MG/1 ML DISP.SYRIN IV PRN ×2 (04:48→08:56)
--- NOTE | 2020-05-25 06:27 | NUR ---
Patient alert oriented, no sob no chest pain, tele monitor sinus rhythm sinus finn. Patient has multiple request of food such sandwiches, yello, pudding, crackes and soda. Patient cont on pain management due to abdominal pain, no episode of nausea nor vomiting, tolerate current diet.
[2020-05-25] MEDS: QUETIAPINE FUMARATE 100 MG TABLET PO SCH (08:13)
[2020-05-25] MEDS: PANTOPRAZOLE SODIUM 40 MG VIAL IV SCH (08:13)
[2020-05-25] MEDS: NICOTINE 21 MG/24HR PATCH TD SCH (08:13)
[2020-05-25 11:01] LABS: BASOPHILS # (AUTO) 0.1 K/uL (0.0-8.0); BASOPHILS % (AUTO) 1.2 % (0.0-2.0); EOSINOPHILS # (AUTO) 0.3 K/uL (0.0-0.7); EOSINOPHILS % (AUTO) 3.8 % (0.0-7.0); HEMATOCRIT 40.2 % (36.7-47.1); HEMOGLOBIN 13.7 g/dL (12.5-16.3); LYMPHOCYTES # (AUTO) 1.8 K/uL (20.0-40.0); MEAN CORPUSCULAR HEMOGLOBIN 32.5 uug (23.8-33.4); MEAN CORPUSCULAR HGB CONC 34 g/dL (32.5-36.3); MEAN CORPUSCULAR VOLUME 95.3 fL (73.0-96.2); MONOCYTES # (AUTO) 0.6 K/uL (2.0-10.0); PLATELET COUNT (AUTO) 166 K/uL (152-348); RED BLOOD CELL COUNT(AUTO) 4.21 MIL/uL (4.06-5.63); WHITE BLOOD COUNT (AUTO) 6.9 K/uL (3.6-10.2)
[2020-05-25 11:26] LABS: BILIRUBIN,TOTAL 0.7 mg/dL (0.2-1.0); CREATININE 1.1 mg/dL (0.6-1.3); MAGNESIUM 1.6 mg/dL (1.8-2.4); PHOSPHOROUS 1.6 mg/dL (2.5-4.9); POTASSIUM 3.6 mmol/L (3.5-5.1); TOTAL PROTEIN, SERUM 6.1 g/dL (6.4-8.2)
[2020-05-25 12:00] VITALS: BP 95/50
[2020-05-25] MEDS ORDERED: MAGNESIUM OXIDE 400 MG TABLET PO ONE (12:00)
[2020-05-25] MEDS ORDERED: POTASSIUM CHLORIDE 20 MEQ TAB.PRT.SR PO ONE (12:00)
--- NOTE | 2020-05-25 12:58 | NUR ---
pt. discharged home. IV removed and ID band removed. All belongings with pt. pt. discharged home self care. pt. in stable condition. walked pt. downstairs to front [facility].
[2020-05-26] MEDS ORDERED: PANTOPRAZOLE SODIUM 40 MG TABLET.DR PO SCH (07:00)
== END 2020-05-25 12:50 | disposition home or self-care (01) | DRG 425 ==
LOC: ER 15:07 → TELE-TD3 20:57 → TELE3 21:14
PROVIDERS: ADMIT Internal Medicine; ATTEND Internal Medicine
DX: E87.6 Hypokalemia (principal); G89.4 Chronic pain syndrome; N17.0 Acute kidney failure with tubular necrosis; K20.9 Esophagitis, unspecified; K29.70 Gastritis, unspecified, without bleeding; Z87.891 Personal history of nicotine dependence; F31.9 Bipolar disorder, unspecified; F12.11 Cannabis abuse, in remission; R11.15 Cyclical vomiting syndrome unrelated to migraine; Z76.5 Malingerer [conscious simulation]; E80.6 Other disorders of bilirubin metabolism; R94.31 Abnormal electrocardiogram [ECG] [EKG]
CPT/HCPCS: 36415; 83690; 83735; 83970; 84100; 84132; 84443; 85025; 93005; A4663; C9113; G0378; J2270; J2405; J3475; J3480; J3490; J7030; J7040

== ENCOUNTER 2020-06-03 15:02 | Emergency (ER) | payer SELFPAY ==
[~2020-06-03] VITALS: Ht 182.9 cm; Wt 68.0 kg
[~2020-06-03 15:02] MED LIST changes: +QUET100T PO; +QUET200T PO
[2020-06-03] MEDS ORDERED: IV NORMAL SALINE 1000 ML BAG IV ONE (15:30)
[2020-06-03] MEDS ORDERED: METOCLOPRAMIDE HCL 10 MG/2 ML VIAL IV ONE (15:30)
[2020-06-03] MEDS ORDERED: KETOROLAC TROMETHAMINE 15 MG INJ IVP ONE (15:30)
[2020-06-03] MEDS ORDERED: KETOROLAC TROMETHAMINE 15 MG INJ ONE (15:50)
[2020-06-03] MEDS ORDERED: METOCLOPRAMIDE HCL 10 MG/2 ML VIAL ONE (15:50)
[2020-06-03 15:58] LABS: BASOPHILS % (AUTO) 0.4 % (0.0-2.0); EOSINOPHILS # (AUTO) 0.2 K/uL (0.0-0.7); EOSINOPHILS % (AUTO) 2.2 % (0.0-7.0); HEMATOCRIT 46.7 % (36.7-47.1); HEMOGLOBIN 16.4 g/dL (12.5-16.3); LYMPHOCYTES # (AUTO) 1.7 K/uL (20.0-40.0); LYMPHOCYTES % (AUTO) 19.6 % (20.5-51.5); MEAN CORPUSCULAR HEMOGLOBIN 32.2 uug (23.8-33.4); MEAN CORPUSCULAR HGB CONC 35 g/dL (32.5-36.3); MEAN CORPUSCULAR VOLUME 91.6 fL (73.0-96.2); MONOCYTES % (AUTO) 10.7 % (0.0-11.0); NEUTROPHILS # (AUTO) 5.9 K/uL (1.8-8.9); NEUTROPHILS % (AUTO) 67.1 % (38.5-71.5); PLATELET COUNT (AUTO) 321 K/uL (152-348); WHITE BLOOD COUNT (AUTO) 8.9 K/uL (3.6-10.2)
[2020-06-03 16:00] LABS: CARBON DIOXIDE 36 mmol/L (21-32); CHLORIDE 88 mmol/L (98-107); CREATININE 1.5 mg/dL (0.6-1.3); GLUCOSE 107 mg/dL (74-106); UREA NITROGEN, BLOOD 32 mg/dL (7-18)
[2020-06-03 16:01] LABS: POTASSIUM 2.8 mmol/L (3.5-5.1)
--- NOTE | 2020-06-03 16:04 | NUR ---
Patient does not wish to proceed with medical care recommended by (Huong). Patient given information related to possible complications, up to and including , which could occur as a result of leaving the hospital at this time. Patient verbalizes understanding of risks involved due to leaving against medical advice. Patient has signed AMA form.IV removed. Catheter intact and site benign. Pressure and 4x4 gauze applied to site. No bleeding noted.
[2020-06-03 16:07] VITALS: BP 115/90
[2020-06-03 16:12] LABS: ALANINE AMINOTRANSFERASE 22 U/L (16-63); ALKALINE PHOSPHATASE 79 U/L (50-136); ASPARTATE AMINOTRANSFERASE 26 U/L (15-37); BILIRUBIN,DIRECT 0.2 mg/dL (0.0-0.2); BILIRUBIN,TOTAL 0.9 mg/dL (0.2-1.0); LIPASE 71 U/L (73-393); TOTAL PROTEIN, SERUM 9.1 g/dL (6.4-8.2)
[2020-06-03 16:29] LABS: ETHANOL < 3 MG/DL (0-0)
== END 2020-06-03 16:09 | disposition left against medical advice (07) ==
LOC: ER 15:05
DX: R11.2 Nausea with vomiting, unspecified (principal); G89.4 Chronic pain syndrome; F12.10 Cannabis abuse, uncomplicated; E86.0 Dehydration
CPT/HCPCS: 36415; 80048; 80076; 80307; 83690; 85025; 96361; 96374; 96375; 99284; J1885; J2765; A4663; G0480; J7030

== ENCOUNTER 2020-08-02 18:44 | Emergency (ER) | payer MEDICAID ==
[~2020-08-02] VITALS: Ht 182.9 cm; Wt 61.3 kg
[~2020-08-02 18:44] MED LIST changes: -PROC25SU31 RC
[2020-08-02] MEDS ORDERED: diphenhydrAMINE 50 MG/1 ML VIAL IV ONE (20:15)
[2020-08-02] MEDS ORDERED: IV NORMAL SALINE 1000 ML BAG IV ONE ×4 (20:15→22:45)
[2020-08-02] MEDS ORDERED: METOCLOPRAMIDE HCL 10 MG/2 ML VIAL IV ONE (20:15)
[2020-08-02] MEDS ORDERED: ONDANSETRON 4 MG/2 ML VIAL IV ONE (20:15)
[2020-08-02] MEDS ORDERED: ONDANSETRON 4 MG/2 ML VIAL ONE (20:22)
[2020-08-02] MEDS ORDERED: METOCLOPRAMIDE HCL 10 MG/2 ML VIAL ONE (20:22)
[2020-08-02] MEDS ORDERED: diphenhydrAMINE 50 MG/1 ML VIAL ONE (20:22)
[2020-08-02 20:24] LABS: BASOPHILS # (AUTO) 0.1 K/uL (0.0-8.0); BASOPHILS % (AUTO) 0.6 % (0.0-2.0); EOSINOPHILS # (AUTO) 0.2 K/uL (0.0-0.7); EOSINOPHILS % (AUTO) 2.5 % (0.0-7.0); HEMOGLOBIN 16.5 g/dL (12.5-16.3); LYMPHOCYTES # (AUTO) 1.6 K/uL (20.0-40.0); MEAN CORPUSCULAR HEMOGLOBIN 32.9 uug (23.8-33.4); MEAN CORPUSCULAR HGB CONC 36 g/dL (32.5-36.3); MEAN CORPUSCULAR VOLUME 91.6 fL (73.0-96.2); MONOCYTES # (AUTO) 0.6 K/uL (2.0-10.0); MONOCYTES % (AUTO) 6.7 % (0.0-11.0); NEUTROPHILS % (AUTO) 73.2 % (38.5-71.5); PLATELET COUNT (AUTO) 311 K/uL (152-348); RED BLOOD CELL COUNT(AUTO) 5.02 MIL/uL (4.06-5.63); WHITE BLOOD COUNT (AUTO) 9.6 K/uL (3.6-10.2)
[2020-08-02 20:27] LABS: CREATININE 1.6 mg/dL (0.6-1.3); POTASSIUM 3.2 mmol/L (3.5-5.1)
[2020-08-02 20:33] LABS: BILIRUBIN,DIRECT 0.2 mg/dL (0.0-0.2)
--- NOTE | 2020-08-02 21:30 | NUR ---
Patient is sleeping comfortably, appears in no distress. Respirations are even & unlabored. No episodes of vomiting. IV fluids are infusing. Will continue to monitor.
--- NOTE | 2020-08-02 23:30 | NUR ---
PO challenge well tolerated by patient. No nausea/vomiting.
[2020-08-02] MEDS ORDERED: LIDOCAINE VISCUS 2% 15 ML UDC ONE (23:34)
[2020-08-02] MEDS ORDERED: MAG HYDROX/AL HYDROX/SIMETH 30 ML LIQUID UDC ONE (23:34)
[2020-08-02] MEDS ORDERED: PANTOPRAZOLE SODIUM 40 MG VIAL ONE (23:35)
--- NOTE | 2020-08-02 23:44 | NUR ---
IV removed. Catheter intact and site benign. Pressure and 4x4 gauze applied to site. No bleeding noted.
[2020-08-02] MEDS ORDERED: PANTOPRAZOLE SODIUM 40 MG VIAL IV ONE (23:45)
--- NOTE | 2020-08-02 23:49 | NUR ---
Patient discharged to home in stable condition. Written and verbal after care instructions given. Patient verbalizes understanding of instructions. Stressed follow up or return to ER for worsening s/s.
[2020-08-02 23:52] VITALS: BP 117/68
== END 2020-08-02 23:53 | disposition home or self-care (01) ==
LOC: ER 18:47
DX: R11.15 Cyclical vomiting syndrome unrelated to migraine (principal); Z76.5 Malingerer [conscious simulation]; E87.6 Hypokalemia; E87.1 Hypo-osmolality and hyponatremia; N28.9 Disorder of kidney and ureter, unspecified; G89.4 Chronic pain syndrome; F31.9 Bipolar disorder, unspecified; F11.20 Opioid dependence, uncomplicated
CPT/HCPCS: 36415; 80048; 80076; 83690; 85025; 96361; 96374; 96375; 99284; C9113; J1200; J2405; J2765; A4663; J7030

== ENCOUNTER 2020-08-06 08:43 | Emergency (ER) | payer MEDICAID ==
[~2020-08-06] VITALS: Ht 182.9 cm; Wt 61.2 kg
--- NOTE | 2020-08-06 09:10 | NUR ---
PT WAS EVALUATED BY DR TOLEDO. PT WAS D/C'd TO HOME. D/C INSTRUCTIONS GIVEN TO THE PT BY DR TOLEDO.
[2020-08-06 09:11] VITALS: BP 136/71
== END 2020-08-06 09:12 | disposition home or self-care (01) ==
LOC: ER 08:43
DX: R11.15 Cyclical vomiting syndrome unrelated to migraine (principal); G89.4 Chronic pain syndrome; F31.9 Bipolar disorder, unspecified; Z79.899 Other long term (current) drug therapy; F19.10 Other psychoactive substance abuse, uncomplicated; M48.00 Spinal stenosis, site unspecified
CPT/HCPCS: A4663

== ENCOUNTER 2020-08-07 18:28 | Emergency (ER) | payer MEDICAID ==
[~2020-08-07] VITALS: Ht 182.9 cm; Wt 55.8 kg
[2020-08-07] MEDS ORDERED: ENOXAPARIN SODIUM 40 MG/0.4 ML DISP.SYRIN SQ ONE (18:50)
--- NOTE | 2020-08-07 19:07 | NUR ---
Dr. Shanks at bedside for MSE.
[2020-08-07] MEDS ORDERED: PROCHLORPERAZINE EDISYLATE 10 MG/2 ML VIAL IM ONE (19:15)
== END 2020-08-07 19:17 | disposition left against medical advice (07) ==
LOC: ER 18:30
DX: G89.4 Chronic pain syndrome (principal); R10.9 Unspecified abdominal pain; R11.15 Cyclical vomiting syndrome unrelated to migraine; Z76.5 Malingerer [conscious simulation]; R03.0 Elevated blood-pressure reading, without diagnosis of hypertension; F31.9 Bipolar disorder, unspecified; Z79.899 Other long term (current) drug therapy
CPT/HCPCS: A4663; J1650

== ENCOUNTER 2020-12-18 09:38 | Emergency (ER) | payer MEDICAID ==
[~2020-12-18] VITALS: Ht 182.9 cm; Wt 61.2 kg
--- NOTE | 2020-12-18 09:51 | NUR ---
Dr Campbell at the bedside for MSE.
[2020-12-18] MEDS ORDERED: IV NORMAL SALINE 1000 ML BAG IV ONE (10:00)
[2020-12-18] MEDS ORDERED: HYDROMORPHONE 1 MG/1 ML DISP.SYRIN IV ONE (10:00)
[2020-12-18] MEDS ORDERED: ONDANSETRON 4 MG/2 ML VIAL IV ONE (10:00)
[2020-12-18] MEDS ORDERED: HYDROMORPHONE 2 MG/1 ML DISP.SYRIN ONE (10:08)
[2020-12-18] MEDS ORDERED: ONDANSETRON 4 MG/2 ML VIAL ONE (10:09)
[2020-12-18 10:25] LABS: BILIRUBIN,DIRECT 0.2 mg/dL (0.0-0.2); BILIRUBIN,TOTAL 1.6 mg/dL (0.2-1.0); CREATININE 1.7 mg/dL (0.6-1.3); TOTAL PROTEIN, SERUM 8.1 g/dL (6.4-8.2)
[2020-12-18] MEDS ORDERED: CLON0.5T PO (10:29)
[2020-12-18] MEDS ORDERED: QUET100T PO (10:32)
[2020-12-18 10:33] LABS: POTASSIUM 2.6 mmol/L (3.5-5.1)
[2020-12-18] MEDS ORDERED: DICY20TA11 PO (10:34)
[2020-12-18] MEDS ORDERED: ONDA4TAB5 PO (10:34)
[2020-12-18] MEDS ORDERED: POTASSIUM CHLORIDE 20 MEQ TAB.PRT.SR ONE (10:43)
[2020-12-18] MEDS ORDERED: POTASSIUM CHLORIDE 20 MEQ TAB.PRT.SR PO ONE (10:45)
--- NOTE | 2020-12-18 10:45 | NUR ---
Pt able to tolorate PO intake. Denies pain and nausea.
[2020-12-18 10:56] LABS: BASOPHILS # (AUTO) 0.1 K/uL (0.0-8.0); BASOPHILS % (AUTO) 1.3 % (0.0-2.0); EOSINOPHILS # (AUTO) 0.3 K/uL (0.0-0.7); EOSINOPHILS % (AUTO) 3.9 % (0.0-7.0); HEMATOCRIT 43.1 % (36.7-47.1); HEMOGLOBIN 15.2 g/dL (12.5-16.3); LYMPHOCYTES % (AUTO) 28.8 % (20.5-51.5); MEAN CORPUSCULAR HEMOGLOBIN 31.7 uug (23.8-33.4); MEAN CORPUSCULAR HGB CONC 35 g/dL (32.5-36.3); MONOCYTES # (AUTO) 0.8 K/uL (2.0-10.0); MONOCYTES % (AUTO) 11.9 % (0.0-11.0); NEUTROPHILS # (AUTO) 3.7 K/uL (1.8-8.9); NEUTROPHILS % (AUTO) 54.1 % (38.5-71.5); PLATELET COUNT (AUTO) 273 K/uL (152-348); RED BLOOD CELL COUNT(AUTO) 4.79 MIL/uL (4.06-5.63); WHITE BLOOD COUNT (AUTO) 6.8 K/uL (3.6-10.2)
--- NOTE | 2020-12-18 11:06 | NUR ---
IV removed. Catheter intact and site benign. Pressure and 4x4 gauze applied to site. No bleeding noted.
[2020-12-18 11:07] VITALS: BP 120/67
== END 2020-12-18 11:08 | disposition home or self-care (01) ==
LOC: ER 09:38
DX: R11.15 Cyclical vomiting syndrome unrelated to migraine (principal); E86.0 Dehydration; E87.6 Hypokalemia; G89.4 Chronic pain syndrome; F31.9 Bipolar disorder, unspecified; Z79.899 Other long term (current) drug therapy
CPT/HCPCS: 36415; 80048; 80076; 83690; 85025; 96361; 96374; 96375; 99284; J1170; J2405; A4663

== ENCOUNTER 2020-12-19 15:23 | Emergency (ER) | payer MEDICAID ==
[~2020-12-19] VITALS: Ht 182.9 cm; Wt 58.5 kg
[~2020-12-19 15:23] MED LIST changes: +CLON0.5T PO; +DICY20TA11 PO; +ONDA4TAB5 PO
--- NOTE | 2020-12-19 15:44 | NUR ---
Patient is awake, alert, oriented x3.
[2020-12-19] MEDS ORDERED: HALOPERIDOL LACTATE 5 MG/1 ML VIAL IM ONE (16:00)
[2020-12-19] MEDS ORDERED: HALOPERIDOL LACTATE 5 MG/1 ML VIAL ONE (16:11)
[2020-12-19 16:30] LABS: BASOPHILS # (AUTO) 0.1 K/uL (0.0-8.0); EOSINOPHILS # (AUTO) 0.5 K/uL (0.0-0.7); EOSINOPHILS % (AUTO) 5.9 % (0.0-7.0); HEMATOCRIT 42.1 % (36.7-47.1); HEMOGLOBIN 14.6 g/dL (12.5-16.3); LYMPHOCYTES # (AUTO) 2.4 K/uL (20.0-40.0); LYMPHOCYTES % (AUTO) 30.7 % (20.5-51.5); MEAN CORPUSCULAR HEMOGLOBIN 31.1 uug (23.8-33.4); MEAN CORPUSCULAR HGB CONC 35 g/dL (32.5-36.3); MEAN CORPUSCULAR VOLUME 89.8 fL (73.0-96.2); MONOCYTES # (AUTO) 0.9 K/uL (2.0-10.0); MONOCYTES % (AUTO) 11.2 % (0.0-11.0); NEUTROPHILS % (AUTO) 51.2 % (38.5-71.5); PLATELET COUNT (AUTO) 275 K/uL (152-348); RED BLOOD CELL COUNT(AUTO) 4.68 MIL/uL (4.06-5.63); WHITE BLOOD COUNT (AUTO) 7.7 K/uL (3.6-10.2)
[2020-12-19 16:34] LABS: *COLOR,URINE YELLOW (YELLOW); *KETONES,URINE TRACE (NEGATIVE); LEUKOCYTE ESTERASE ,URINE NEGATIVE (NEGATIVE); NITRITE, URINE NEGATIVE (NEGATIVE); UGLUCOSE NEGATIVE (NEGATIVE)
[2020-12-19 16:35] LABS: *BLOOD, URINE TRACE (NEGATIVE)
[2020-12-19 16:36] LABS: *BILIRUBIN,URIN 1+ (NEGATIVE)
[2020-12-19 16:38] LABS: CREATININE 1.5 mg/dL (0.6-1.3); POTASSIUM 2.9 mmol/L (3.5-5.1)
[2020-12-19 16:41] LABS: MAGNESIUM 2.2 mg/dL (1.8-2.4); PHOSPHOROUS 2.6 mg/dL (2.5-4.9)
[2020-12-19 16:42] LABS: *CLARITY,URINE SLIGHTLY HAZY (CLEAR); BACTERIA,URINE NONE SEEN /HPF (NONE SEEN); SQUAMOUS EPITHELIAL CELL,UR FEW /HPF (NONE SEEN)
[2020-12-19 16:43] LABS: BILIRUBIN,DIRECT 0.2 mg/dL (0.0-0.2); BILIRUBIN,TOTAL 1.3 mg/dL (0.2-1.0); TOTAL PROTEIN, SERUM 8.1 g/dL (6.4-8.2)
[2020-12-19] MEDS ORDERED: POTASSIUM CHLORIDE 20 MEQ POWDER PACKET PO STA (16:46)
[2020-12-19 16:47] LABS: *AMPHETAMINE, URINE NEGATIVE (NEGATIVE); *CANNABINOID, URINE POSITIVE (NEGATIVE); *COCCAINE, URINE NEGATIVE (NEGATIVE); *OPIATE, URINE POSITIVE (NEGATIVE); *PHENCYCLIDINE SCREEN,URINE NEGATIVE (NEGATIVE)
[2020-12-19] MEDS ORDERED: POTASSIUM CHLORIDE 20 MEQ POWDER PACKET ONE (16:58)
--- NOTE | 2020-12-19 17:04 | NUR ---
DC, AND FOLLOW UP INSRUCTIONS GIVEN AND EXPLAINED TO PATIENT WHO STATES HE UNDERSTANDS ALL INSTRUCTIONS
== END 2020-12-19 17:06 | disposition home or self-care (01) ==
LOC: ER 15:24
DX: R10.84 Generalized abdominal pain (principal); Z76.5 Malingerer [conscious simulation]; F11.20 Opioid dependence, uncomplicated; F13.20 Sedative, hypnotic or anxiolytic dependence, uncomplicated; Z72.0 Tobacco use; E87.6 Hypokalemia; R11.2 Nausea with vomiting, unspecified; F12.90 Cannabis use, unspecified, uncomplicated; G89.4 Chronic pain syndrome; F31.9 Bipolar disorder, unspecified
CPT/HCPCS: 36415; 80048; 80076; 80307; 81001; 83690; 83735; 84100; 85025; 96372; 99283; J1630; A4663

== ENCOUNTER 2020-12-24 12:53 | Emergency (ER) | payer MEDICAID ==
[~2020-12-24] VITALS: Ht 180.3 cm; Wt 61.2 kg
[2020-12-24] MEDS ORDERED: QUET100T PO (13:19)
--- NOTE | 2020-12-24 13:40 | NUR ---
pt requesting for ketamine, notified.
--- NOTE | 2020-12-24 13:50 | NUR ---
pt yelling/cursing about the fact that he will not recieve narcotics in this visit.
[2020-12-24] MEDS ORDERED: diphenhydrAMINE 50 MG/1 ML VIAL ONE (13:51)
[2020-12-24] MEDS ORDERED: HALOPERIDOL LACTATE 5 MG/1 ML VIAL ONE (13:51)
[2020-12-24] MEDS: diphenhydrAMINE 50 MG/1 ML VIAL IV ONE (13:52)
[2020-12-24] MEDS ORDERED: PROCHLORPERAZINE EDISYLATE 10 MG/2 ML VIAL ONE (13:52)
[2020-12-24] MEDS: PROCHLORPERAZINE EDISYLATE 10 MG/2 ML VIAL IV ONE (13:52)
[2020-12-24] MEDS: HALOPERIDOL LACTATE 5 MG/1 ML VIAL IM ONE (13:52)
[2020-12-24] MEDS: IV NORMAL SALINE 1000 ML BAG IV ONE (13:53)
--- NOTE | 2020-12-24 13:53 | NUR ---
pt deed. heplock out.
== END 2020-12-24 13:59 | disposition left against medical advice (07) ==
LOC: ER 12:53
DX: R11.0 Nausea (principal); G89.4 Chronic pain syndrome; R10.84 Generalized abdominal pain; Z76.5 Malingerer [conscious simulation]; Z72.0 Tobacco use; F11.20 Opioid dependence, uncomplicated; F31.9 Bipolar disorder, unspecified; Z79.899 Other long term (current) drug therapy
CPT/HCPCS: A4663; J0780; J1200; J1630; J7030

== ENCOUNTER 2020-12-26 18:08 | Emergency (ER) | payer MEDICAID ==
[~2020-12-26] VITALS: Ht 182.9 cm; Wt 59.0 kg
[~2020-12-26 18:08] MED LIST changes: -DICY20TA11 PO; -ONDA4TAB8 PO; -QUET200T PO
--- NOTE | 2020-12-26 18:27 | NUR ---
DR CHIANG IN ROOM FOR BETHANY
[2020-12-26] MEDS ORDERED: CLON0.5T PO (18:28)
[2020-12-26] MEDS ORDERED: HYDROMORPHONE 1 MG/1 ML DISP.SYRIN IM ONE (18:30)
[2020-12-26] MEDS ORDERED: ONDANSETRON 4 MG/2 ML VIAL IM ONE (18:30)
[2020-12-26] MEDS ORDERED: ONDANSETRON 4 MG/2 ML VIAL ONE (18:38)
[2020-12-26] MEDS ORDERED: HYDROMORPHONE 1 MG/1 ML DISP.SYRIN ONE (18:38)
--- NOTE | 2020-12-26 18:44 | NUR ---
DC, RX (WITH ALL PRECAUTIONS) AND FOLLOW UP INSTRUCTIONS GIVEN AND EXPLAINED TO PATIENT WHO STATES HE UNDERSTANDS ALL INSTRUCTIONS. HE STATES HE DOES NOT DRIVE.
== END 2020-12-26 18:46 | disposition home or self-care (01) ==
LOC: ER 18:10
DX: F41.9 Anxiety disorder, unspecified (principal); Z76.0 Encounter for issue of repeat prescription; G89.4 Chronic pain syndrome
CPT/HCPCS: 96372; 99283; J1170; J2405; A4663

== ENCOUNTER 2020-12-30 08:17 | Emergency (ER) | payer MEDICAID ==
[~2020-12-30] VITALS: Ht 182.9 cm; Wt 58.5 kg
--- NOTE | 2020-12-30 08:53 | NUR ---
Dr Silva is at bedside for MSE.
[2020-12-30] MEDS ORDERED: ONDANSETRON 4 MG/2 ML VIAL IV ONE (09:00)
[2020-12-30] MEDS ORDERED: PANTOPRAZOLE SODIUM 40 MG TABLET.DR PO ONE ×2 (09:00→09:18)
[2020-12-30] MEDS ORDERED: IV NORMAL SALINE 1000 ML BAG IV ONE (09:00)
[2020-12-30 09:14] LABS: BASOPHILS # (AUTO) 0.1 K/uL (0.0-8.0); BASOPHILS % (AUTO) 1.3 % (0.0-2.0); EOSINOPHILS % (AUTO) 0.5 % (0.0-7.0); HEMATOCRIT 38.1 % (36.7-47.1); HEMOGLOBIN 13.1 g/dL (12.5-16.3); LYMPHOCYTES # (AUTO) 1.4 K/uL (20.0-40.0); MEAN CORPUSCULAR HEMOGLOBIN 31.2 uug (23.8-33.4); MEAN CORPUSCULAR HGB CONC 35 g/dL (32.5-36.3); MEAN CORPUSCULAR VOLUME 90.4 fL (73.0-96.2); MONOCYTES # (AUTO) 0.5 K/uL (2.0-10.0); NEUTROPHILS # (AUTO) 4.6 K/uL (1.8-8.9); NEUTROPHILS % (AUTO) 69.2 % (38.5-71.5); PLATELET COUNT (AUTO) 326 K/uL (152-348); RED BLOOD CELL COUNT(AUTO) 4.21 MIL/uL (4.06-5.63); WHITE BLOOD COUNT (AUTO) 6.7 K/uL (3.6-10.2)
[2020-12-30] MEDS ORDERED: ONDANSETRON 4 MG/2 ML VIAL ONE (09:18)
[2020-12-30 09:23] LABS: CREATININE 1.2 mg/dL (0.6-1.3); POTASSIUM 3.5 mmol/L (3.5-5.1)
[2020-12-30 09:29] LABS: BILIRUBIN,DIRECT 0.2 mg/dL (0.0-0.2); BILIRUBIN,TOTAL 0.6 mg/dL (0.2-1.0); TOTAL PROTEIN, SERUM 7.4 g/dL (6.4-8.2)
--- NOTE | 2020-12-30 09:51 | NUR ---
Pt is supposed to be discharged by MD after the fluids and re-assessment, however patient decided to elope without waiting for his DC papers. He took the IV out of his R AC and ambulated out of the ED in steady gait.
== END 2020-12-30 09:55 | disposition left against medical advice (07) ==
LOC: ER 08:17
DX: R11.15 Cyclical vomiting syndrome unrelated to migraine (principal); R10.9 Unspecified abdominal pain; Z76.5 Malingerer [conscious simulation]; F31.9 Bipolar disorder, unspecified; G89.4 Chronic pain syndrome; F11.20 Opioid dependence, uncomplicated; F12.90 Cannabis use, unspecified, uncomplicated
CPT/HCPCS: 36415; 80048; 80076; 83690; 85025; 96361; 96374; 96375; 99284; J2405; A4663; J7030

== ENCOUNTER 2021-01-01 09:11 | Emergency (ER) | payer MEDICAID ==
[~2021-01-01] VITALS: Ht 182.9 cm; Wt 59.0 kg
[2021-01-01] MEDS ORDERED: HYDROCODONE/APAP 10-325 MG TABLET PO ONE (09:30)
--- NOTE | 2021-01-01 09:30 | NUR ---
Patient expressed "Can I have phenergan or some GI cocktail?" Patient admits to taking 8mg of Zofran prior to arrival to ER, MD is aware.
[2021-01-01] MEDS ORDERED: HYDROCODONE/APAP 10-325 MG TABLET ONE (09:37)
[2021-01-01] MEDS ORDERED: DICYCLOMINE HCL LIQ 10 MG/5 ML UDC PO ONE (09:45)
[2021-01-01] MEDS ORDERED: MAG HYDROX/AL HYDROX/SIMETH 30 ML LIQUID UDC PO ONE (09:45)
--- NOTE | 2021-01-01 09:55 | NUR ---
Patient discharged to home in stable condition with brisk steady gait. Written and verbal after care instructions given. Patient verbalizes understanding & compliance of instructions. Stressed follow up with primary doctor and your GI doctor or return to ER for worsening s/s.
[2021-01-01] MEDS ORDERED: MAG HYDROX/AL HYDROX/SIMETH 30 ML LIQUID UDC ONE ×2 (09:59)
[2021-01-01] MEDS ORDERED: DICYCLOMINE HCL LIQ 10 MG/5 ML UDC ONE (10:00)
== END 2021-01-01 09:56 | disposition home or self-care (01) ==
LOC: ER 09:11
DX: R11.15 Cyclical vomiting syndrome unrelated to migraine (principal); G89.4 Chronic pain syndrome; F31.9 Bipolar disorder, unspecified; F41.9 Anxiety disorder, unspecified; Z79.899 Other long term (current) drug therapy
CPT/HCPCS: A4663

== ENCOUNTER 2021-01-05 05:30 | Emergency (ER) | payer MEDICAID, OTHER ==
[~2021-01-05] VITALS: Ht 182.9 cm; Wt 59.0 kg
--- NOTE | 2021-01-05 06:12 | NUR ---
Awake,alert,oriented x 4,+ROM. Complaint "My electrolytes are low". Nausea with poor intake x 1 day.Moist intact membranes. Lab draw blood.Comfort measure x 2.Able to rest.
[2021-01-05 06:17] LABS: BASOPHILS # (AUTO) 0.1 K/uL (0.0-8.0); BASOPHILS % (AUTO) 0.6 % (0.0-2.0); EOSINOPHILS % (AUTO) 0.1 % (0.0-7.0); HEMATOCRIT 49.1 % (36.7-47.1); HEMOGLOBIN 16.6 g/dL (12.5-16.3); LYMPHOCYTES # (AUTO) 1.3 K/uL (20.0-40.0); LYMPHOCYTES % (AUTO) 10.2 % (20.5-51.5); MEAN CORPUSCULAR HEMOGLOBIN 30.3 uug (23.8-33.4); MEAN CORPUSCULAR HGB CONC 34 g/dL (32.5-36.3); MEAN CORPUSCULAR VOLUME 89.8 fL (73.0-96.2); MONOCYTES % (AUTO) 7.9 % (0.0-11.0); NEUTROPHILS # (AUTO) 10.2 K/uL (1.8-8.9); NEUTROPHILS % (AUTO) 81.2 % (38.5-71.5); PLATELET COUNT (AUTO) 396 K/uL (152-348); RED BLOOD CELL COUNT(AUTO) 5.47 MIL/uL (4.06-5.63); WHITE BLOOD COUNT (AUTO) 12.5 K/uL (3.6-10.2)
[2021-01-05 06:22] LABS: CREATININE 2.4 mg/dL (0.6-1.3); POTASSIUM 3.7 mmol/L (3.5-5.1)
[2021-01-05 06:28] LABS: BILIRUBIN,DIRECT 0.2 mg/dL (0.0-0.2); BILIRUBIN,TOTAL 0.9 mg/dL (0.2-1.0); TOTAL PROTEIN, SERUM 10.1 g/dL (6.4-8.2)
--- NOTE | 2021-01-05 06:38 | NUR ---
ED MD bedside. Discharged to home. BP 129/79, Pulse 99, resp 20, temp 96.6 temporial. Patient states "I feel better knowing my potassium is normal." Calling [employer].Patient has all belongings. Review writen discharge instructions,patient able to verbalize instructions.
[2021-01-05 06:49] VITALS: BP 127/79
== END 2021-01-05 06:45 | disposition home or self-care (01) ==
LOC: ER 05:31
DX: F19.20 Other psychoactive substance dependence, uncomplicated (principal); R10.9 Unspecified abdominal pain; G89.4 Chronic pain syndrome; F31.9 Bipolar disorder, unspecified; F11.20 Opioid dependence, uncomplicated
CPT/HCPCS: 36415; 83735; 85025; A4663

== ENCOUNTER 2021-03-25 10:45 | Emergency (ER) | payer OTHER ==
[~2021-03-25] VITALS: Ht 182.9 cm; Wt 59.0 kg
--- NOTE | 2021-03-25 11:19 | NUR ---
30 years old male alert, oriented x4 walking to er c/o body pain gait steady, move all extremities.
[2021-03-25 12:31] VITALS: BP 118/70
--- NOTE | 2021-03-25 12:32 | NUR ---
condition stable d/c home with instructions after care reviewed understood left er via self ambulatory with steady gait, ate meal tolerated well.
== END 2021-03-25 12:34 | disposition home or self-care (01) ==
LOC: ER 10:45
DX: S13.9XXA Sprain of joints and ligaments of unspecified parts of neck, initial encounter (principal); S60.221A Contusion of right hand, initial encounter; S09.90XA Unspecified injury of head, initial encounter; V49.9XXA Car occupant (driver) (passenger) injured in unspecified traffic accident, initial encounter; Y92.410 Unspecified street and highway as the place of occurrence of the external cause; G89.4 Chronic pain syndrome; F31.9 Bipolar disorder, unspecified; F11.20 Opioid dependence, uncomplicated
CPT/HCPCS: 70450; 71045; 72125; 72170; 73130; A4217; A4663

== ENCOUNTER 2021-05-13 10:00 | Emergency (ER) | payer OTHER ==
[~2021-05-13] VITALS: Ht 182.9 cm; Wt 52.2 kg
[2021-05-13] MEDS ORDERED: ONDA4TAB5 PO (10:35)
[2021-05-13] MEDS ORDERED: ACET600C PO (10:35)
[2021-05-13] MEDS ORDERED: OMEP20TA5 PO (10:35)
[2021-05-13] MEDS ORDERED: CITA10TA9 PO (10:35)
[2021-05-13] MEDS ORDERED: BUPR150T5 PO (10:35)
[2021-05-13] MEDS ORDERED: HALO2TAB PO (10:35)
[2021-05-13] MEDS ORDERED: DICY20TA11 PO (10:35)
[2021-05-13] MEDS ORDERED: QUET100T PO (10:35)
[2021-05-13] MEDS ORDERED: SUCR1TAB PO (10:35)
[2021-05-13] MEDS ORDERED: LAMO25TA10 PO (10:35)
[2021-05-13] MEDS ORDERED: TRAZ-182 PO (10:35)
[2021-05-13] MEDS ORDERED: GABA600T12 PO (10:35)
--- NOTE | 2021-05-13 10:50 | NUR ---
Dr Scherer at the bedside for MSE.
[2021-05-13 10:59] LABS: HEMATOCRIT 39.6 % (36.7-47.1); MEAN CORPUSCULAR HEMOGLOBIN 32.1 uug (23.8-33.4); MEAN CORPUSCULAR VOLUME 90.9 fL (73.0-96.2); PLATELET COUNT (AUTO) 529 K/uL (152-348)
[2021-05-13] MEDS ORDERED: chlorproMAZINE 50 MG/2 ML AMPUL IM ONE (11:00)
[2021-05-13] MEDS ORDERED: METH750T3 PO (11:00)
[2021-05-13] MEDS ORDERED: BISM262T15 PO (11:00)
[2021-05-13] MEDS ORDERED: chlorproMAZINE 50 MG/2 ML AMPUL ONE (11:07)
[2021-05-13 11:08] LABS: BILIRUBIN,DIRECT 0.2 mg/dL (0.0-0.2); BILIRUBIN,TOTAL 0.8 mg/dL (0.2-1.0); CREATININE 1.1 mg/dL (0.6-1.3); POTASSIUM 3.4 mmol/L (3.5-5.1); TOTAL PROTEIN, SERUM 8.5 g/dL (6.4-8.2)
[2021-05-13 11:14] LABS: *BILIRUBIN,URIN 1+ (NEGATIVE); *CLARITY,URINE CLEAR (CLEAR); *COLOR,URINE YELLOW (YELLOW); *KETONES,URINE TRACE (NEGATIVE); LEUKOCYTE ESTERASE ,URINE NEGATIVE (NEGATIVE); NITRITE, URINE NEGATIVE (NEGATIVE); UGLUCOSE NEGATIVE (NEGATIVE)
[2021-05-13 11:15] LABS: *BLOOD, URINE TRACE (NEGATIVE)
[2021-05-13] MEDS ORDERED: MAGNESIUM SULFATE/D5W 100 ML IV SCH (12:15)
[2021-05-13] MEDS ORDERED: POTASSIUM CHLORIDE 50 ML IV SCH (12:15)
[2021-05-13] MEDS ORDERED: MAGNESIUM SULFATE/D5W 100 ML ONE (12:17)
[2021-05-13] MEDS ORDERED: MAGNESIUM SULFATE 1 GM/2 ML VIAL ONE (12:17)
[2021-05-13] MEDS ORDERED: POTASSIUM CHLORIDE 100 ML ONE (12:18)
[2021-05-13] MEDS ORDERED: IV NORMAL SALINE 500 ML BAG IV ONE (12:30)
[2021-05-13 13:23] LABS: BACTERIA,URINE FEW /HPF (NONE SEEN); MUCUS,URINE FEW /LPF (0-FEW); RBC,URINE 20-50 /HPF (0-3); SQUAMOUS EPITHELIAL CELL,UR NONE SEEN /HPF (NONE SEEN)
[2021-05-13 14:45] VITALS: BP 115/76
[2021-05-13] MEDS ORDERED: PROM25TA15 PO (14:45)
--- NOTE | 2021-05-13 14:45 | NUR ---
IV removed. Catheter intact and site benign. Pressure and 4x4 gauze applied to site. No bleeding noted.
== END 2021-05-13 14:56 | disposition home or self-care (01) ==
LOC: ER 10:00
DX: R10.84 Generalized abdominal pain (principal); R11.2 Nausea with vomiting, unspecified; R94.31 Abnormal electrocardiogram [ECG] [EKG]; F31.9 Bipolar disorder, unspecified; G89.4 Chronic pain syndrome; F11.20 Opioid dependence, uncomplicated; E87.6 Hypokalemia; Z79.899 Other long term (current) drug therapy
CPT/HCPCS: 36415; 80048; 80076; 81001; 83605; 83690; 85025; 93005; 96365; 96367; 96372; 99284; J3230; J3475 ×2; J3480; A4663; J7030

== ENCOUNTER 2021-10-05 10:24 | Emergency (ER) | payer MEDICAID, OTHER ==
[~2021-10-05] VITALS: Ht 182.9 cm; Wt 70.3 kg
[~2021-10-05 10:24] MED LIST changes: +ACET600C PO; -ALPR2TAB2 PO; +BISM262T15 PO; +BUPR150T5 PO; +CITA10TA9 PO; -CLON0.5T PO; +DICY20TA11 PO; +GABA600T12 PO; +HALO2TAB PO; +LAMO25TA10 PO; +METH-807 PO; +OMEP20TA5 PO; +PROM25TA15 PO; +SUCR1TAB PO; +TRAZ-182 PO
[2021-10-05] MEDS ORDERED: TETRACAINE HCL 0.5% OPHT DROP 2 ML BOTTLE OP ONE (11:00)
[2021-10-05] MEDS ORDERED: FLUORESCEIN SODIUM 1 MG STRIP OP ONE (11:00)
[2021-10-05] MEDS ORDERED: FLUORESCEIN SODIUM 1 MG STRIP ONE (11:24)
[2021-10-05] MEDS ORDERED: TETRACAINE HCL 0.5% OPHT DROP 2 ML BOTTLE ONE (11:24)
[2021-10-05] MEDS ORDERED: ACETAMINOPHEN ES 500 MG TABLET ONE (11:29)
[2021-10-05] MEDS ORDERED: ACETAMINOPHEN ES 500 MG TABLET PO ONE (11:30)
--- NOTE | 2021-10-05 11:34 | NUR ---
Haresh pan in [facility] - 10/05/21 at 1134 by OMI PT REQUESTED TO SIT OUTSIDE WHILE WAITING FOR MD EVALUATION.
[2021-10-05] MEDS ORDERED: SULF1TAB48 PO (11:43)
[2021-10-05] MEDS ORDERED: IBUP-1955 PO (11:43)
[2021-10-05] MEDS ORDERED: CEPH500C2 PO (11:43)
[2021-10-05 12:02] VITALS: BP 129/63
== END 2021-10-05 12:03 | disposition home or self-care (01) ==
LOC: ER 10:41
DX: L04.0 Acute lymphadenitis of face, head and neck (principal); B30.9 Viral conjunctivitis, unspecified; S92.502A Displaced unspecified fracture of left lesser toe(s), initial encounter for closed fracture; X58.XXXA Exposure to other specified factors, initial encounter; Y92.89 Other specified places as the place of occurrence of the external cause; F17.200 Nicotine dependence, unspecified, uncomplicated; G89.4 Chronic pain syndrome; F31.9 Bipolar disorder, unspecified
CPT/HCPCS: A4663; A9150

== ENCOUNTER 2021-12-20 19:26 | Emergency (ER) | payer MEDICAID, OTHER ==
[~2021-12-20] VITALS: Ht 182.9 cm; Wt 68.0 kg
[~2021-12-20 19:26] MED LIST changes: +CEPH500C2 PO; +IBUP-1955 PO; +SULF1TAB48 PO
--- NOTE | 2021-12-20 19:39 | NUR ---
PT AMBULATED TO ER WITH STEADY GAIT C/O LT MID BACK PAIN X9 DAYS. A/O X4, NO SOB OR LABORED BREATHING, AFEBRILE. DENIES CP/PRESSURE. DENIES ANY GI/ DISTRESS. NO N/V/D. CLEAR SPEECH, COMPLETE SENTENCES.
--- NOTE | 2021-12-20 19:44 | NUR ---
Tara HARVEY AT BEDSIDE, MSE IN PROGRESS.
[2021-12-20] MEDS ORDERED: TRAMADOL HCL 50 MG TABLET PO ONE (20:00)
[2021-12-20] MEDS ORDERED: IV NORMAL SALINE 1000 ML BAG IV ONE (20:00)
[2021-12-20] MEDS ORDERED: ONDANSETRON 4 MG/2 ML VIAL IV ONE (20:00)
[2021-12-20] MEDS ORDERED: TRAMADOL HCL 50 MG TABLET ONE (20:06)
[2021-12-20] MEDS ORDERED: ONDANSETRON 4 MG/2 ML VIAL ONE (20:06)
--- NOTE | 2021-12-20 21:00 | NUR ---
Patient does not wish to proceed with medical care recommended by Christelle Martinez. Patient given information related to possible complications, up to and including , which could occur as a result of leaving the hospital at this time. Patient verbalizes understanding of risks involved due to leaving against medical advice. Patient has signed AMA form. Steady gait, no changes in LOC. Picked up by family. Denies any pain/discomfort.
[2021-12-20 21:23] VITALS: BP 122/76
== END 2021-12-20 21:10 | disposition left against medical advice (07) ==
LOC: ER 19:26
DX: M54.9 Dorsalgia, unspecified (principal); Z53.29 Procedure and treatment not carried out because of patient's decision for other reasons; F17.210 Nicotine dependence, cigarettes, uncomplicated; F31.9 Bipolar disorder, unspecified; G89.29 Other chronic pain; R10.9 Unspecified abdominal pain; Z79.899 Other long term (current) drug therapy
CPT/HCPCS: A4663; J2405; J7030

== ENCOUNTER 2022-07-31 04:19 | Emergency (ER) | payer MEDICAID, OTHER ==
[~2022-07-31] VITALS: Ht 182.9 cm; Wt 86.2 kg
--- NOTE | 2022-07-31 04:58 | NUR ---
Dr. Mcduffie at bedside. MSE in progress.
[2022-07-31] MEDS ORDERED: CHLO25CA22 PO (05:14)
[2022-07-31] MEDS ORDERED: IBUP-1955 PO (05:14)
[2022-07-31] MEDS ORDERED: THIAMINE HCL 100 MG TABLET PO ONE (05:15)
[2022-07-31] MEDS ORDERED: LORAZEPAM 2 MG/1 ML VIAL IV ONE (05:15)
[2022-07-31] MEDS ORDERED: IV NORMAL SALINE 1000 ML BAG IV ONE (05:15)
[2022-07-31] MEDS ORDERED: POTASSIUM BICARBONATE/CIT AC 25 MEQ TABLET.EFF PO ONE (05:15)
[2022-07-31] MEDS ORDERED: CHLORDIAZEPOXIDE HCL 25 MG CAPSULE PO ONE (05:15)
[2022-07-31] MEDS ORDERED: CHLORDIAZEPOXIDE HCL 25 MG CAPSULE ONE (05:16)
[2022-07-31] MEDS ORDERED: THIAMINE HCL 100 MG TABLET ONE (05:16)
[2022-07-31] MEDS ORDERED: POTASSIUM BICARBONATE/CIT AC 25 MEQ TABLET.EFF ONE (05:16)
[2022-07-31] MEDS ORDERED: MAGNESIUM SULFATE/D5W 100 ML ONE (05:16)
[2022-07-31] MEDS ORDERED: LORAZEPAM 2 MG/1 ML VIAL ONE (05:17)
[2022-07-31 05:24] LABS: *BILIRUBIN,URIN NEGATIVE (NEGATIVE); *BLOOD, URINE NEGATIVE (NEGATIVE); *CLARITY,URINE CLEAR (CLEAR); *COLOR,URINE YELLOW (YELLOW); *KETONES,URINE NEGATIVE (NEGATIVE); *UROBILINOGEN,URINE 0.2 E.U./dl (NORMAL); LEUKOCYTE ESTERASE ,URINE NEGATIVE (NEGATIVE); NITRITE, URINE NEGATIVE (NEGATIVE); UGLUCOSE NEGATIVE (NEGATIVE)
[2022-07-31 05:41] LABS: *AMPHETAMINE, URINE NEGATIVE (NEGATIVE); *CANNABINOID, URINE POSITIVE (NEGATIVE); *COCCAINE, URINE NEGATIVE (NEGATIVE); *OPIATE, URINE POSITIVE (NEGATIVE); *PHENCYCLIDINE SCREEN,URINE NEGATIVE (NEGATIVE)
[2022-07-31] MEDS: MAGNESIUM SULFATE/D5W 100 ML IV SCH ×2 (05:41→06:50)
[2022-07-31 05:47] LABS: HEMATOCRIT 41.5 % (36.7-47.1); MEAN CORPUSCULAR HEMOGLOBIN 29.9 uug (23.8-33.4); MEAN CORPUSCULAR VOLUME 86.7 fL (73.0-96.2); PLATELET COUNT (AUTO) 330 K/uL (152-348)
[2022-07-31] MEDS ORDERED: THIAMINE HCL 200 MG/2 ML VIAL ONE (06:00)
[2022-07-31] MEDS ORDERED: THIAMINE HCL INJ 100 MG in IV DEXTROSE 5% 50 ML IV SCH (06:00)
[2022-07-31 06:01] LABS: ALANINE AMINOTRANSFERASE 27 U/L (16-63); ALKALINE PHOSPHATASE 98 U/L (50-136); ASPARTATE AMINOTRANSFERASE 22 U/L (15-37); BILIRUBIN,DIRECT 0.1 mg/dL (0.0-0.2); BILIRUBIN,TOTAL 0.5 mg/dL (0.2-1.0); CARBON DIOXIDE 30 mmol/L (21-32); CHLORIDE 105 mmol/L (98-107); CREATININE 1.2 mg/dL (0.6-1.3); GLUCOSE 94 mg/dL (74-106); POTASSIUM 4.3 mmol/L (3.5-5.1); TOTAL PROTEIN, SERUM 8.3 g/dL (6.4-8.2); UREA NITROGEN, BLOOD 28 mg/dL (7-18)
[2022-07-31 06:09] LABS: ETHANOL < 3 MG/DL (0-0)
--- NOTE | 2022-07-31 07:11 | NUR ---
Report given to Elsie LOPEZ and Marin ( Nurse) updated on patient's status.
--- NOTE | 2022-07-31 07:14 | NUR ---
IV removed. Catheter intact and site benign. Pressure and 4x4 gauze applied to site. No bleeding noted.
--- NOTE | 2022-07-31 07:22 | NUR ---
Patient discharged to home in stable condition with patient taking Uber home. Written and verbal after care instructions given. Patient verbalizes understanding of instructions. Stressed follow up or return to ER for worsening s/s.
[2022-07-31 07:23] VITALS: BP 137/88
== END 2022-07-31 07:23 | disposition home or self-care (01) ==
LOC: ER 04:24
DX: F10.239 Alcohol dependence with withdrawal, unspecified (principal); F31.9 Bipolar disorder, unspecified; F11.10 Opioid abuse, uncomplicated; G89.4 Chronic pain syndrome; Z79.899 Other long term (current) drug therapy
CPT/HCPCS: 80076; 80048; 81003; 83735; 85025; 36415; 93005; 99285; 96365; 96366; 96368; 96375; 80320; 80307; J2060; J3475 ×2; J3411; J7040; A4663; G0480

== ENCOUNTER 2023-07-30 06:30 | Emergency (ER) | payer SELFPAY ==
[~2023-07-30] VITALS: Ht 180.3 cm; Wt 62.6 kg
[~2023-07-30 06:30] MED LIST changes: +CHLO25CA22 PO
[2023-07-30] MEDS ORDERED: MORPHINE SULFATE 4 MG/1 ML DISP.SYRIN IV ONE (07:45)
[2023-07-30] MEDS ORDERED: IV NORMAL SALINE 1000 ML BAG IV ONE (07:45)
[2023-07-30] MEDS ORDERED: ONDANSETRON 4 MG/2 ML VIAL IV ONE (07:45)
[2023-07-30] MEDS ORDERED: ONDANSETRON 4 MG/2 ML VIAL ONE (07:48)
[2023-07-30] MEDS ORDERED: MORPHINE SULFATE 4 MG/1 ML DISP.SYRIN ONE (07:48)
[2023-07-30 08:56] LABS: BASOPHILS # (AUTO) 0.1 K/UL (0.0-0.2); BASOPHILS % (AUTO) 0.8 % (0.0-2.0); EOSINOPHILS % (AUTO) 0.1 % (0.0-7.0); HEMATOCRIT 46.8 % (36.7-47.1); HEMOGLOBIN 16.2 g/dL (12.5-16.3); LYMPHOCYTES # (AUTO) 1.1 K/uL (0.8-4.8); LYMPHOCYTES % (AUTO) 11.9 % (20.5-51.5); MEAN CORPUSCULAR HEMOGLOBIN 30.9 uug (23.8-33.4); MEAN CORPUSCULAR HGB CONC 35 g/dL (32.5-36.3); MEAN CORPUSCULAR VOLUME 89.4 fL (73.0-96.2); MONOCYTES # (AUTO) 0.8 K/uL (0.1-1.30); MONOCYTES % (AUTO) 8.3 % (0.0-11.0); NEUTROPHILS # (AUTO) 7.6 K/uL (1.8-8.9); NEUTROPHILS % (AUTO) 78.9 % (38.5-71.5); PLATELET COUNT (AUTO) 328 K/uL (152-348); RED BLOOD CELL COUNT(AUTO) 5.24 MIL/uL (4.06-5.63); RED CELL DISTRIBUTION WIDTH 12.9 % (12.1-16.2); WHITE BLOOD COUNT (AUTO) 9.6 K/uL (3.6-10.2)
[2023-07-30 08:58] LABS: DIFFERENTIAL COMMENT 1
[2023-07-30 08:58] LABS: *BILIRUBIN,URIN 2+ (NEGATIVE); *BLOOD, URINE 2+ (NEGATIVE); *CLARITY,URINE CLEAR (CLEAR); *COLOR,URINE YELLOW (YELLOW); *KETONES,URINE 1+ (NEGATIVE); *PROTEIN,URINE 3+ (NEGATIVE); *UROBILINOGEN,URINE 0.2 E.U./dl (NORMAL); LEUKOCYTE ESTERASE ,URINE NEGATIVE (NEGATIVE); NITRITE, URINE NEGATIVE (NEGATIVE); PH,URINE 5.5 (5.0-8.0); UGLUCOSE NEGATIVE (NEGATIVE)
[2023-07-30 09:16] LABS: CALCIUM 9.9 mg/dL (8.5-10.1); CREATININE 1.3 mg/dL (0.6-1.3); POTASSIUM 3.7 mmol/L (3.5-5.1)
[2023-07-30 09:21] LABS: ALBUMIN 4.9 g/dL (3.4-5.0); TOTAL PROTEIN, SERUM 9.3 g/dL (6.4-8.2)
[2023-07-30 09:22] LABS: *AMPHETAMINE, URINE NEGATIVE (NEGATIVE); *BARBITURATE, URINE NEGATIVE (NEGATIVE); *BENZODIAZEPINE, URINE NEGATIVE (NEGATIVE); *CANNABINOID, URINE POSITIVE (NEGATIVE); *COCCAINE, URINE NEGATIVE (NEGATIVE); *OPIATE, URINE NEGATIVE (NEGATIVE); *PHENCYCLIDINE SCREEN,URINE NEGATIVE (NEGATIVE); FENTANYL, URINE NEGATIVE (NEGATIVE)
[2023-07-30 09:22] LABS: ETHANOL < 3 MG/DL (0-10)
[2023-07-30 09:27] LABS: BACTERIA,URINE FEW /HPF (NONE SEEN); WBC,URINE 0-3 /HPF (0-3)
[2023-07-30 09:28] LABS: SPERM,URINE FEW /HPF (NONE SEEN); SQUAMOUS EPITHELIAL CELL,UR FEW /HPF (NONE SEEN)
[2023-07-30 09:50] VITALS: O2SAT 97
[2023-07-30] MEDS ORDERED: CEPH500T PO (11:45)
== END 2023-07-30 12:00 | disposition home or self-care (01) ==
LOC: ER 06:31
DX: R11.2 Nausea with vomiting, unspecified (principal); R10.84 Generalized abdominal pain; F17.210 Nicotine dependence, cigarettes, uncomplicated; Z79.1 Long term (current) use of non-steroidal anti-inflammatories (NSAID); Z79.899 Other long term (current) drug therapy
CPT/HCPCS: 80053; 81001; 83690; 85025; 36415; 74176; 99285; 96374; 96375; 80320; 80307; J2405; J2270; J7040; A4606; A4663; G0480